=== PATIENT | male | born 1940 | race Caucasian/White ===

== ENCOUNTER 2019-09-08 13:52 | Emergency (ER) | payer MEDICARE ==
[2019-09-08 14:00] VITALS: TEMP 98.1
--- NOTE | 2019-09-08 14:18 | XR ---
EXAMINATION TYPE: XR KUB DATE OF EXAM: 09/08/2019 2:08 PM CLINICAL HISTORY: Abdominal pain and constipation for 4 days. TECHNIQUE: Two Upright KUB images of the abdomen are obtained. COMPARISON: None. FINDINGS: Scattered gas is seen in non-distended stomach and small bowel loops. Gas and fecal materia l is seen in non-distended colon. Few gas prominent bowel loops in the upper abdomen with air-fluid l evels. Left-sided vascular calcification and phleboliths in the pelvis. Moderate narrowing and spurri ng in both hip joints. Multilevel spurring in the thoracolumbar spine. No pneumoperitoneum. Lung base s are clear. IMPRESSION: Overall nonspecific but favor nonobstructive bowel gas pattern.
[2019-09-08 15:16] VITALS: BP 148/72; PULSE 58; RESP 20
--- NOTE | 2019-09-08 15:35 | ED ---
General Adult HPI - General Chief complaint: Abdominal Pain Stated complaint: constipation Time Seen by Provider: 09/08/19 14:00 Source: patient Mode of arrival: ambulatory Limitations: no limitations - History of Present Illness Initial comments: 79-year-old male presents today for chief complaint of constipation. Patient states the past 4 days he has been constipated he states he has been traveling and eating differently and sometimes this occurs. Patient states he felt a stool ball earlier today and attempted to remove it himself. Patient states it was "sucked back up". Patient denies significant abdominal pain states he feels slightly distended, he denies having any rectal fullness at this time. Patient denies any rectal bleeding he admits to history of hemorrhoids. Remaining review of systems negative denies any other complaints denies any vomiting or history of bowel obstruction. - Related Data Home Medications Medication Instructions Recorded Confirmed Metoprolol Tartrate [Lopressor] 12.5 mg PO DAILY 08/15/13 09/28/16 Travatan(Unknown) 1 drops BOTH EYES DAILY 08/15/13 09/28/16 Brimonidine Tartrate/Timolol 1 drop BOTH EYES 09/28/16 [Combigan 0.2%-0.5% Eye Drops] Previous Rx's Medication Instructions Recorded Docusate [Colace] 100 mg PO DAILY 7 Days #7 capsule 09/08/19 Allergies Allergy/AdvReac Type Severity Reaction Status Date / Time Sulfa (Sulfonamide Allergy Rash/Hives Verified 09/08/19 14:00 Antibiotics) Review of Systems ROS Statement: Those systems with pertinent positive or pertinent negative responses have been documented in the HPI. ROS Other: All systems not noted in ROS Statement are negative. Past Medical History Past Medical History: Diabetes Mellitus, Hypertension Additional Past Medical History / Comment(s): GLAUCOMA, BORDERLINE DIABETIC History of Any Multi-Drug Resistant Organisms: None Reported Past Surgical History: Joint Replacement Additional Past Surgical History / Comment(s): NELA KNEES Past Anesthesia/Blood Transfusion Reactions: No Reported Reaction Past Psychological History: No Psychological Hx Reported Smoking Status: Never smoker Past Alcohol Use History: None Reported Past Drug Use History: None Reported General Exam - General Exam Comments Initial Comments: General: The patient is awake and alert, in no distress Eye: Pupils are equal, round and reactive to light, extra-ocular movements are intact. No nystagmus. There is normal conjunctiva bilaterally. No signs of icterus. Gastrointestinal: Soft, non-distended, non-tender abdomen without masses or organomegaly noted. There is no rebound or guarding present Rectal: External pink, nontender hemorrhoids noted. no stool ball appreciated. Musculoskeletal: Normal ROM, no tenderness. Strength 5/5. Sensation intact. Radial pulses equal bilaterally 2+. Neurological: A&O x 3. CN II-XII intact grossly, There are no obvious motor or sensory deficits. Coordination appears grossly intact. Speech is normal. Skin: Skin is warm and dry and no rashes or lesions are noted. Psychiatric: Cooperative, appropriate mood & affect, normal judgment. Limitations: no limitations Course Vital Signs 09/08/19 09/08/19 13:57 15:15 Temperature 98.1 F Pulse Rate 52 L 58 L Respiratory 18 20 Rate Blood Pressure 158/62 148/72 O2 Sat by Pulse 97 99 Oximetry Medical Decision Making - Medical Decision Making Had large bowel movement after enema once x-ray revealed no obstructive process. There is no evidence of stool ball. Patient states he feels much better requesting discharge. Patient was provided a stool softener I discussed high fiber and diarrhea and increasing fluids patient verbalized understanding and was discharged appearing well Disposition Clinical Impression: Constipation Disposition: HOME SELF-CARE Condition: Good Additional Instructions: Please use medication as discussed. Please follow-up with family doctor in the next 2 days. of symptoms have not improved. Please return to emergency room if the symptoms increase or worsen or for any other concerns. Prescriptions: Docusate [Colace] 100 mg PO DAILY 7 Days #7 capsule Is patient prescribed a controlled substance at d/c from ED?: No Referrals: Erick Walsl DO [Primary Care Provider] - 1-2 days Time of Disposition: 15:35
== END 2019-09-08 15:40 | disposition home or self-care (01) ==
LOC: EC 13:52
DX: K59.00 Constipation, unspecified (principal); I10 Essential (primary) hypertension; K64.9 Unspecified hemorrhoids; H40.9 Unspecified glaucoma; Z79.899 Other long term (current) drug therapy; Z88.2 Allergy status to sulfonamides
CPT/HCPCS: 74018; 99284

== ENCOUNTER → 2020-02-21 | Outpatient (CLI) | payer MEDICARE | END | disposition home or self-care (01) | LOC: LABPAT 11:19 | PROVIDERS: ATTEND Surgery | DX: Z20.828 Contact with and (suspected) exposure to other viral communicable diseases (principal) ==

== ENCOUNTER 2020-02-28 07:12 | Day surgery (SDC) | payer MEDICARE ==
[2020-02-26 10:12] VITALS: BMI 25.5
[~2020-02-28 07:12] MED LIST: LACTATED RINGERS 1,000 ML IV SCH; MIDAZOLAM 2 MG/2 ML VIAL IV PRN
[2020-02-28 07:30] VITALS: TEMP 97.6
[2020-02-28 07:47] LABS: Glucose,Whole Blood 125 mg/dL (75-99)
[2020-02-28] MEDS ORDERED: LIDOCAINE 1% (10MG/ML) FOR IV START INTRADERMA ONE (07:52)
[2020-02-28] MEDS ORDERED: METOPROLOL TARTRATE 5 MG/5 ML VIAL IVP ONE (07:52)
[2020-02-28] MEDS ORDERED: PROPOFOL 10 MG/ML 20 ML VIAL IV ONE (08:00)
--- NOTE | 2020-02-28 08:05 | P.GSHP ---
History of Present Illness H&P Date: 02/28/20 79-year-old male presents today for an elective screening colonoscopy. He states his last colonoscopy was about 6 years ago. He denies any recent blood in his stool. Denies any personal history of colon cancer. States he has had some recent constipation. Has no additional complaints at this time. - Review of Systems All systems: negative Past Medical History Past Medical History: Diabetes Mellitus, Hypertension Additional Past Medical History / Comment(s): GLAUCOMA, BORDERLINE DIABETIC. change in bowel pattern History of Any Multi-Drug Resistant Organisms: None Reported Past Surgical History: Joint Replacement Additional Past Surgical History / Comment(s): NELA KNEES Past Anesthesia/Blood Transfusion Reactions: No Reported Reaction Smoking Status: Never smoker Medications and Allergies Home Medications Medication Instructions Recorded Confirmed Type Metoprolol Tartrate [Lopressor] 12.5 mg PO DAILY 08/15/13 02/28/20 History Brimonidine Tartrate [Alphagan P 1 drops BOTH EYES BID 02/26/20 02/28/20 History 0.15% Ophth Soln] Latanoprost/Pf [Latanoprost 0.005% 1 drop BOTH EYES HS 02/26/20 02/28/20 History Eye Drop] Norwood-3 Fatty Acids/Fish Oil [Fish 1 each PO DAILY 02/26/20 02/28/20 History Oil 1,000 mg Softgel] Timolol 0.5% Ophth Soln [Timoptic 1 drop BOTH EYES BID 02/26/20 02/28/20 History 0.5% Ophth Soln] metFORMIN HCL [Glucophage] 500 mg PO TID 02/26/20 02/28/20 History Allergies Allergy/AdvReac Type Severity Reaction Status Date / Time Sulfa (Sulfonamide Allergy Rash/Hives Verified 02/28/20 07:32 Antibiotics) Surgical - Exam Osteopathic Statement: *. No significant issues noted on an osteopathic structural exam other than those noted in the History and Physical/Consult. Vital Signs Temp Pulse Resp BP Pulse Ox 97.6 F 81 18 162/104 98 02/28/20 07:28 02/28/20 07:28 02/28/20 07:28 02/28/20 07:28 02/28/20 07:28 - General well nourished, no distress - Eyes PERRL - ENT no hearing loss - Neck trachea midline - Respiratory normal respiratory effort - Abdomen Abdomen: soft, non tender - Psychiatric oriented to time, oriented to person, oriented to place Results - Labs Abnormal Lab Results - Last 24 Hours (Table) 02/28/20 Range/Units 07:43 POC Glucose (mg/dL) 125 H (75-99) mg/dL Assessment and Plan Plan: 79-year-old male presents for screening colonoscopy. Plan is for colonoscopy. Further recommendations to be provided after procedure.
--- NOTE | 2020-02-28 08:23 | P.PCN ---
Date of Procedure: 02/28/20 Preoperative Diagnosis: Screening Postoperative Diagnosis: Internal hemorrhoids Procedure(s) Performed: Colonoscopy Anesthesia: MAC Surgeon: Brianna Cruz Pathology: none sent Condition: stable Disposition: same day Indications for Procedure: 79-year-old male presents today for screening colonoscopy. He has had some recent constipation. He denies any blood in his stool. No family history of colon cancer. Risks, benefits and alternatives were provided to the patient and he did provide consent prior to attending the endoscopy suite. Operative Findings: Internal hemorrhoids, no other acute finding Description of Procedure: The patient was brought into the endoscopy suite. He was then placed in left lateral decubitus position and adequate sedation was achieved using conscious sedation. A digital rectal exam was performed and mild internal hemorrhoids were palpated. An endoscope was then placed in the rectum and advanced to the cecum as identified by landmarks including the appendiceal orifice and the ileocecal valve. The prep was good. The colonoscope was then slowly withdrawn, examining for any mucosal abnormalities. The cecum, ascending, transverse, descending and sigmoid colon were visualized adequately. There were no large neoplastic lesions throughout the colon. There were no obvious polyps noted throughout the colon. There was no evidence of diverticulosis. Retroflexion was performed in the rectum and mild internal hemorrhoids were visible. Excess air was removed, the colonoscope withdrawn and the procedure terminated. The patient was then transferred to the recovery unit in stable condition. Repeat colonoscopy should be performed based on the patient's symptoms in the future due to the patient's age.
[2020-02-28 08:28] VITALS: RESP 16
[2020-02-28 08:44] VITALS: BP 126/68; PULSE 70
== END 2020-02-28 09:06 | disposition home or self-care (01) ==
LOC: ORWHC2ENDO 07:12
PROVIDERS: ATTEND Surgery
DX: Z12.11 Encounter for screening for malignant neoplasm of colon (principal); K64.8 Other hemorrhoids; I10 Essential (primary) hypertension; E11.39 Type 2 diabetes mellitus with other diabetic ophthalmic complication; H42 Glaucoma in diseases classified elsewhere; Z88.2 Allergy status to sulfonamides; Z79.84 Long term (current) use of oral hypoglycemic drugs; Z79.899 Other long term (current) drug therapy; Z96.653 Presence of artificial knee joint, bilateral
CPT/HCPCS: G0121; J2704; 45378

== ENCOUNTER 2020-07-27 20:05 | Emergency (ER) | payer MEDICARE ==
[2020-07-27 20:12] VITALS: TEMP 97.5
[2020-07-27] MEDS ORDERED: SODIUM CHLORIDE 0.9% 500 ML 500 ML IV STA (20:46)
[2020-07-27 21:12] VITALS: RESP 18
--- NOTE | 2020-07-27 21:27 | ED ---
Recheck HPI - General Chief Complaint: Recheck/Abnormal Lab/Rx Stated Complaint: elevated BP, Dizziness Time Seen by Provider: 07/27/20 20:36 Source: patient Mode of arrival: wheelchair Limitations: no limitations - History of Present Illness Initial Comments: 80 year-old male patient presents to the emergency department for evaluation of elevated blood pressure. States that he was out watching his grandson play ball when he started to feel "woozy". Checked his bloodsugar when he got home it was 117. Checked his blood pressure which was elevated to the 190s systolic. States his BP is generally well under control. He take half tablet of Metoprolol 12.5mg daily. He states he feels general malaise and occasional lightheadedness. Denies any chest pain or shortness of breath. Denies headache, blurred, or double vision. Denies any numbness, tingling, or weakness to the extremities. Patient denies any recent rash, fever, chills, cough, abdominal pain, nausea, vomiting, diarrhea, constipation, back pain, hematuria, dysuria, urinary urgency, urinary frequency, or any other complaints. - Related Data Home Medications Medication Instructions Recorded Confirmed Metoprolol Tartrate [Lopressor] 12.5 mg PO DAILY 08/15/13 02/28/20 Brimonidine Tartrate [Alphagan P 1 drops BOTH EYES BID 02/26/20 02/28/20 0.15% Ophth Soln] Latanoprost/Pf [Latanoprost 0.005% 1 drop BOTH EYES HS 02/26/20 02/28/20 Eye Drop] Arley-3 Fatty Acids/Fish Oil [Fish 1 each PO DAILY 02/26/20 02/28/20 Oil 1,000 mg Softgel] Timolol 0.5% Ophth Soln [Timoptic 1 drop BOTH EYES BID 02/26/20 02/28/20 0.5% Ophth Soln] metFORMIN HCL [Glucophage] 500 mg PO TID 02/26/20 02/28/20 Allergies Allergy/AdvReac Type Severity Reaction Status Date / Time Sulfa (Sulfonamide Allergy Rash/Hives Verified 07/27/20 20:08 Antibiotics) Review of Systems ROS Statement: Those systems with pertinent positive or pertinent negative responses have been documented in the HPI. ROS Other: All systems not noted in ROS Statement are negative. Past Medical History Past Medical History: Diabetes Mellitus, Hypertension Additional Past Medical History / Comment(s): GLAUCOMA, BORDERLINE DIABETIC. change in bowel pattern History of Any Multi-Drug Resistant Organisms: None Reported Past Surgical History: Joint Replacement Additional Past Surgical History / Comment(s): NELA KNEES Past Anesthesia/Blood Transfusion Reactions: No Reported Reaction Past Psychological History: No Psychological Hx Reported Smoking Status: Never smoker Past Alcohol Use History: Rare Past Drug Use History: None Reported General Exam Limitations: no limitations General appearance: alert, in no apparent distress, other (This is a well- developed, well-nourished elderly male patient in no acute distress. Vital signs upon presentation are temperature 97.5F, pulse 108, respirations 20, blood pressure 202/115, pulse ox 97% on room air.) Eye exam: Present: normal appearance, PERRL, EOMI. Absent: scleral icterus, conjunctival injection, nystagmus, periorbital swelling ENT exam: Present: normal exam, normal oropharynx, mucous membranes moist Respiratory exam: Present: normal lung sounds bilaterally. Absent: respiratory distress, wheezes, rales, rhonchi, stridor Cardiovascular Exam: Present: normal rhythm, tachycardia, normal heart sounds. Absent: systolic murmur, diastolic murmur, rubs, gallop, clicks GI/Abdominal exam: Present: soft, normal bowel sounds. Absent: distended, tenderness, guarding, rebound, rigid Neurological exam: Present: alert, oriented X3, CN II-XII intact Expanded Speech: Present: fluid speech Cranial nerves: EOM's Intact: Normal, Nystagmus: Normal Motor strength exam: RUE: 5, LUE: 5, RLE: 5, LLE: 5 Psychiatric exam: Present: normal affect, normal mood Skin exam: Present: warm, dry, intact, normal color. Absent: rash Course Vital Signs 07/27/20 07/27/20 07/27/20 20:09 21:10 22:17 Temperature 97.5 F L Pulse Rate 108 H 90 93 Respiratory 20 18 18 Rate Blood Pressure 202/115 176/103 167/104 O2 Sat by Pulse 97 99 97 Oximetry 07/27/20 23:40 Temperature Pulse Rate 82 Respiratory 18 Rate Blood Pressure 162/94 O2 Sat by Pulse 97 Oximetry Medical Decision Making - Medical Decision Making 80-year-old male patient presented to the emergency department today for evaluation of elevated blood pressure and dizziness. Physical examination is unremarkable. He is neurologically intact with no focal deficits. Lungs are clear to auscultation with good air movement. Blood pressures initially were elevated at 200 systolic. Labs reviewed and are unremarkable. 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 Patient denies chest pain. Trop negative. Given home BP medication, a whole tablet of metoprolol 12.5mg. BP did improve. He does feel comfortable being discharged. He is to call primary care physician in the morning for further evaluation and instruction. Return parameters were discussed in detail. He verbalizes understanding and agrees with this plan. Case discussed with my attending Dr. Luther. - Lab Data Result diagrams: 07/27/20 21:06 07/27/20 21:06 Lab Results 07/27/20 07/27/20 07/27/20 Range/Units 21:06 21:06 21:06 WBC 7.5 (3.8-10.6) k/uL RBC 4.70 (4.30-5.90) m/uL Hgb 15.2 (13.0-17.5) gm/dL Hct 43.0 (39.0-53.0) % MCV 91.5 (80.0-100.0) fL MCH 32.4 (25.0-35.0) pg MCHC 35.5 (31.0-37.0) g/dL RDW 12.3 (11.5-15.5) % Plt Count 217 (150-450) k/uL MPV 7.0 Neutrophils % 58 % Lymphocytes % 28 % Monocytes % 7 % Eosinophils % 4 % Basophils % 1 % Neutrophils # 4.3 (1.3-7.7) k/uL Lymphocytes # 2.1 (1.0-4.8) k/uL Monocytes # 0.5 (0-1.0) k/uL Eosinophils # 0.3 (0-0.7) k/uL Basophils # 0.1 (0-0.2) k/uL PT 11.0 (9.0-12.0) sec INR 1.0 (<1.2) APTT 25.2 (22.0-30.0) sec Sodium 138 (137-145) mmol/L Potassium 4.0 (3.5-5.1) mmol/L Chloride 103 (98-107) mmol/L Carbon Dioxide 24 (22-30) mmol/L Anion Gap 11 mmol/L BUN 17 (9-20) mg/dL Creatinine 0.91 (0.66-1.25) mg/dL Est GFR (CKD-EPI)AfAm >90 (>60 ml/min/1.73 sqM) Est GFR (CKD-EPI)NonAf 81 (>60 ml/min/1.73 sqM) Glucose 134 H (74-99) mg/dL Calcium 10.2 (8.4-10.2) mg/dL Total Bilirubin 0.6 (0.2-1.3) mg/dL AST 32 (17-59) U/L ALT 27 (4-49) U/L Alkaline Phosphatase 67 (38-126) U/L Troponin I (0.000-0.034) ng/mL Total Protein 7.4 (6.3-8.2) g/dL Albumin 4.6 (3.5-5.0) g/dL TSH 4.090 (0.465-4.680) mIU/L 07/27/20 Range/Units 21:06 WBC (3.8-10.6) k/uL RBC (4.30-5.90) m/uL Hgb (13.0-17.5) gm/dL Hct (39.0-53.0) % MCV (80.0-100.0) fL MCH (25.0-35.0) pg MCHC (31.0-37.0) g/dL RDW (11.5-15.5) % Plt Count (150-450) k/uL MPV Neutrophils % % Lymphocytes % % Monocytes % % Eosinophils % % Basophils % % Neutrophils # (1.3-7.7) k/uL Lymphocytes # (1.0-4.8) k/uL Monocytes # (0-1.0) k/uL Eosinophils # (0-0.7) k/uL Basophils # (0-0.2) k/uL PT (9.0-12.0) sec INR (<1.2) APTT (22.0-30.0) sec Sodium (137-145) mmol/L Potassium (3.5-5.1) mmol/L Chloride (98-107) mmol/L Carbon Dioxide (22-30) mmol/L Anion Gap mmol/L BUN (9-20) mg/dL Creatinine (0.66-1.25) mg/dL Est GFR (CKD-EPI)AfAm (>60 ml/min/1.73 sqM) Est GFR (CKD-EPI)NonAf (>60 ml/min/1.73 sqM) Glucose (74-99) mg/dL Calcium (8.4-10.2) mg/dL Total Bilirubin (0.2-1.3) mg/dL AST (17-59) U/L ALT (4-49) U/L Alkaline Phosphatase (38-126) U/L Troponin I <0.012 (0.000-0.034) ng/mL Total Protein (6.3-8.2) g/dL Albumin (3.5-5.0) g/dL TSH (0.465-4.680) mIU/L - EKG Data -: EKG Interpreted by Me EKG Comments: EKG obtained at 2013 shows sinus rhythm with first-degree AV block with possible premature atrial complexes. Right bundle branch block. Ventricular rate is 96, NV interval 218, QRS duration 154, QT 404, QTC 510. Disposition Clinical Impression: Hypertension, Dizziness Disposition: HOME SELF-CARE Condition: Good Instructions (If sedation given, give patient instructions): Hypertension (ED), Dizziness (ED) Additional Instructions: Follow-up with your primary care physician for recheck in the morning. Monitor blood pressures, keep a log for your doctor. Return for any new, worsening, or concerning symptoms. Is patient prescribed a controlled substance at d/c from ED?: No Referrals: Erick Walls DO [Primary Care Provider] - 1-2 days Time of Disposition: 23:25
[2020-07-27 21:44] LABS: Basophils # (A) 0.1 k/uL (0-0.2); Basophils % (A) 1 %; Eosinophils # (A) 0.3 k/uL (0-0.7); Eosinophils % (A) 4 %; HGB 15.2 gm/dL (13.0-17.5); Lymphocytes # (A) 2.1 k/uL (1.0-4.8); Lymphocytes % (A) 28 %; MCH 32.4 pg (25.0-35.0); MCHC 35.5 g/dL (31.0-37.0); MCV 91.5 fL (80.0-100.0); Monocytes # (A) 0.5 k/uL (0-1.0); Monocytes % (A) 7 %; Neutrophils # (A) 4.3 k/uL (1.3-7.7); Neutrophils % (A) 58 %; Platelet Count 217 k/uL (150-450); RDW 12.3 % (11.5-15.5); WBC 7.5 k/uL (3.8-10.6)
[2020-07-27 21:53] LABS: ALT 27 U/L (4-49); AST 32 U/L (17-59); African American GFR (CKD) >90 (>60 ml/min/1.73 sqM); Albumin 4.6 g/dL (3.5-5.0); Alkaline Phosphatase 67 U/L (38-126); Anion Gap 11 mmol/L; Blood Urea Nitrogen 17 mg/dL (9-20); Calcium 10.2 mg/dL (8.4-10.2); Carbon Dioxide 24 mmol/L (22-30); Chloride 103 mmol/L (98-107); Glucose 134 mg/dL (74-99); Non-African American GFR(CKD) 81 (>60 ml/min/1.73 sqM); Sodium 138 mmol/L (137-145); Total Bilirubin 0.6 mg/dL (0.2-1.3); Total Protein 7.4 g/dL (6.3-8.2)
[2020-07-27 22:01] LABS: Partial Thromboplastin Time 25.2 sec (22.0-30.0)
[2020-07-27] MEDS ORDERED: METOPROLOL TARTRATE 12.5 MG TAB PO STA (22:21)
[2020-07-27 23:41] VITALS: BP 162/94; PULSE 82
[2020-07-30 01:38] LABS: Hemoglobin A1C 7.9 % (4.0-6.0)
== END 2020-07-27 23:40 | disposition home or self-care (01) ==
LOC: EC 20:05
DX: I10 Essential (primary) hypertension (principal); Z79.84 Long term (current) use of oral hypoglycemic drugs; E11.39 Type 2 diabetes mellitus with other diabetic ophthalmic complication; H40.009 Preglaucoma, unspecified, unspecified eye
CPT/HCPCS: 80053; 84443; 84484; 85025; 85610; 85730; 93005; 99284

== ENCOUNTER 2023-07-04 07:29 | Day surgery (SDC) | payer MEDICARE ==
[2023-06-30 10:10] VITALS: BMI 26.5
[~2023-07-04 07:29] MED LIST changes: -LACTATED RINGERS 1,000 ML IV SCH; +LIDOCAINE 1% (10MG/ML) FOR IV START INTRADERMA PRN; -MIDAZOLAM 2 MG/2 ML VIAL IV PRN
[2023-07-04] MEDS: LACTATED RINGERS 1,000 ML IV SCH (08:03)
[2023-07-04 08:26] LABS: Glucose,Whole Blood 170 mg/dL (70-110)
[2023-07-04 08:42] VITALS: TEMP 97.1
[2023-07-04] MEDS ORDERED: LIDOCAINE 1% INJ 10MG/ML (20 ML MDV) ONE (08:47)
[2023-07-04] MEDS ORDERED: PROPOFOL 10 MG/ML 20 ML VIAL IV ONE (08:47)
--- NOTE | 2023-07-04 09:17 | P.GSHP ---
History of Present Illness H&P Date: 07/04/23 Chief Complaint: Change in bowel habits 83-year-old male here today for colonoscopy. Patient with increasing constipation. Takes MiraLAX daily. No rectal bleeding. Stool may be slightly narrower. Thinks he may have had polyps in the past. Past Medical History Past Medical History: Diabetes Mellitus, Hypertension Additional Past Medical History / Comment(s): GLAUCOMA, BORDERLINE DIABETIC. change in bowel pattern History of Any Multi-Drug Resistant Organisms: None Reported Past Surgical History: Joint Replacement Additional Past Surgical History / Comment(s): NELA KNEES, lens implants april 2023, colonoscopy, egd, cataracts removed Past Anesthesia/Blood Transfusion Reactions: No Reported Reaction Additional Past Anesthesia/Blood Transfusion Reaction / Comment(s): no blood transfusion Smoking Status: Never smoker - Past Family History Mother Family Medical History: Cancer Additional Family Medical History / Comment(s): lung Medications and Allergies Home Medications Medication Instructions Recorded Confirmed Type Metoprolol Tartrate [Lopressor] 12.5 mg PO DAILY 08/15/13 07/04/23 History Brimonidine Tartrate [Alphagan P 1 drops RIGHT EYE BID 02/26/20 07/04/23 History 0.15% Ophth Soln] Timolol 0.5% Ophth Soln [Timoptic 1 drop BOTH EYES BID 02/26/20 07/04/23 History 0.5% Ophth Soln] metFORMIN HCL [Glucophage] 500 mg PO TID 02/26/20 07/04/23 History Brinzolamide [Brinzolamide 1% 1 drop LEFT EYE DAILY 06/30/23 07/04/23 History Ophth Susp] Losartan [Cozaar] 50 mg PO DAILY 06/30/23 07/04/23 History Allergies Allergy/AdvReac Type Severity Reaction Status Date / Time Sulfa (Sulfonamide Allergy Rash/Hives Verified 07/04/23 07:51 Antibiotics) Surgical - Exam Vital Signs Temp Pulse Resp Pulse Ox 97.1 F L 77 18 99 07/04/23 08:06 07/04/23 08:06 07/04/23 08:06 07/04/23 08:06 Physical exam: General: Well-developed, well-nourished HEENT: Normocephalic, sclerae nonicteric Abdomen: Nontender, nondistended Extremities: No edema Neuro: Alert and oriented Results - Labs Abnormal Lab Results - Last 24 Hours (Table) 07/04/23 Range/Units 08:20 POC Glucose (mg/dL) 170 H (70-110) mg/dL Assessment and Plan (1) Change in bowel habits Narrative/Plan: Will proceed with colonoscopy at this time. Current Visit: Yes Status: Acute Code(s): R19.4 - CHANGE IN BOWEL HABIT SNOMED Code(s): 44679219
--- NOTE | 2023-07-04 09:18 | P.PCN ---
Date of Procedure: 07/04/23 Procedure(s) Performed: PREOPERATIVE DIAGNOSIS: Change in bowel habits POSTOPERATIVE DIAGNOSIS: Descending colon polyp PROCEDURE: Colonoscopy with snare polypectomy ANESTHESIA: MAC SURGEON: Elliot Bah M.D. SPECIMENS: Polyp ENDOSCOPIC PROCEDURE: The patient was placed on the endoscopy table in the left decubitus position. The Olympus colonoscope was inserted into the anus and passed under direct visualization to the base of the cecum. The appendiceal orifice was visualized. From that point the scope was slowly withdrawn inspecting all surfaces carefully. There were no neoplastic inflammatory or polypoid lesions throughout the cecum, ascending, and transverse colon. In the descending colon a small polyp was seen and removed using the snare with cautery technique. The remainder of the descending sigmoid and rectum appeared normal. There was no visible diverticulosis. Digital rectal examination was normal. The patient was taken to the recovery room in stable condition per anesthesia guidelines. RECOMMENDATIONS: Await biopsy results. Consider repeat colonoscopy 5 years if in great health.
[2023-07-04 09:28] VITALS: PULSE 75
[2023-07-04 10:10] VITALS: BP 125/75; RESP 18
== END 2023-07-04 10:05 | disposition home or self-care (01) ==
LOC: ORWHC2ENDO 07:29
PROVIDERS: ATTEND Surgery
DX: D12.4 Benign neoplasm of descending colon (principal); I10 Essential (primary) hypertension; E11.9 Type 2 diabetes mellitus without complications; F17.200 Nicotine dependence, unspecified, uncomplicated; Z88.2 Allergy status to sulfonamides; Z79.84 Long term (current) use of oral hypoglycemic drugs; Z79.899 Other long term (current) drug therapy; Z98.890 Other specified postprocedural states
CPT/HCPCS: 88305; 45385; J2001; J2704

== ENCOUNTER → 2023-08-18 | Outpatient (CLI) | payer MEDICARE ==
--- NOTE | 2023-08-18 12:52 | XR ---
EXAMINATION TYPE: XR cervical spine limited DATE OF EXAM: 08/18/2023 COMPARISON: NONE HISTORY: Pain TECHNIQUE: Four views are submitted. FINDINGS: The odontoid is intact. There are no compression deformities. The prevertebral soft tissue structur es are within normal limits. Grade 1 anterolisthesis C4-C5, C5-6 and C6-7. Multilevel advanced facet arthropathy. Mild multilevel degenerative disc disease with moderate changes C5-C6. Straightening of cervical spine. IMPRESSION: 1. Advanced multilevel facet arthropathy with mild to moderate multilevel degenerative disc disease. 2. Grade 1 anterolisthesis C4-5, C5-6 and C6-C7.
== END | disposition home or self-care (01) ==
LOC: RADXRMAIN 12:28
PROVIDERS: ATTEND Family Medicine
DX: M50.30 Other cervical disc degeneration, unspecified cervical region (principal); M43.12 Spondylolisthesis, cervical region
CPT/HCPCS: 72040

== ENCOUNTER 2024-05-29 19:18 | Inpatient (IN) | payer MEDICARE ==
--- NOTE | 2024-05-29 21:44 | XR ---
EXAMINATION TYPE: XR chest 2V DATE OF EXAM: 05/29/2024 9:38 PM COMPARISON: Chest radiographs from 09/24/2010 TECHNIQUE: XR chest 2V Frontal and lateral views of the chest. CLINICAL INDICATION:Male, 83 years old with history of Weakness; FINDINGS: Lungs/Pleura: There is no evidence of pleural effusion, focal consolidation, or pneumothorax. Pulmonary vascularity: Unremarkable. Heart/mediastinum: Cardiomediastinal silhouette is unremarkable. Musculoskeletal: Multiple level degenerative disc disease changes seen throughout the spine. Bilatera l arthropathy with left shoulder joint calcified loose bodies. Right AC joint arthropathy. IMPRESSION: No acute cardiopulmonary disease/process. [facility], , 05/29/2024 9:42 PM
[2024-05-29] MEDS: LACTATED RINGERS 1,000 ML IV ONE (21:55)
[2024-05-29 22:16] LABS: AST 105 U/L (17-59); African American GFR (CKD) 29 (>60 ml/min/1.73 sqM); Albumin 3.5 g/dL (3.5-5.0); Alkaline Phosphatase 160 U/L (38-126); Anion Gap 15 mmol/L; Blood Urea Nitrogen 52 mg/dL (9-20); Calcium 8.9 mg/dL (8.4-10.2); Carbon Dioxide 18 mmol/L (22-30); Chloride 102 mmol/L (98-107); Glucose 186 mg/dL (74-99); Magnesium 1.8 mg/dL (1.6-2.3); Non-African American GFR(CKD) 25 (>60 ml/min/1.73 sqM); Potassium 3.4 mmol/L (3.5-5.1); Sodium 135 mmol/L (137-145); Total Bilirubin 0.6 mg/dL (0.2-1.3); Total Protein 5.9 g/dL (6.3-8.2)
[2024-05-29 22:24] LABS: ALT 49 U/L (4-49)
[2024-05-29 22:26] LABS: INR 1.4 (<1.2); Partial Thromboplastin Time 26.8 sec (22.0-30.0)
[2024-05-29 22:30] LABS: HCT 41.3 % (39.0-53.0); HGB 12.8 gm/dL (13.0-17.5); MCHC 30.9 g/dL (31.0-37.0); MCV 93.8 fL (80.0-100.0); Platelet Count 135 k/uL (150-450); RDW 13.5 % (11.5-15.5); WBC 8.3 k/uL (3.8-10.6)
[2024-05-29 22:55] LABS: Influenza A Not Detected (Not Detectd); Influenza B Not Detected (Not Detectd); RSV Not Detected (Not Detectd)
[2024-05-29 22:56] LABS: Band Neutrophils % 44 %; Lymphocytes # (M) 0.33 k/uL (1.0-4.8); Metamyelocytes # (M) 0.58 k/uL (0); Metamyelocytes % 7 %; Neutrophils % (M) 45 %; Nucleated Red Blood Cells 0 /100 WBC (0-0); Total Cells Counted 200
[2024-05-29 22:57] LABS: Toxic Granulation Present; Toxic Vacuolation Present
[2024-05-30] MEDS: SODIUM CHLORIDE 0.9% 500 ML 500 ML IV ONE (00:29)
--- NOTE | 2024-05-30 01:21 | ED ---
General Adult HPI - General Chief complaint: Fall Stated complaint: Weakness Time Seen by Provider: 05/29/24 19:21 Source: EMS Mode of arrival: EMS - History of Present Illness Initial comments: 83-year-old male with past medical history of diabetes, hypertension who pr esents to the emergency department via EMS. Family called EMS stating that the patient has had generalized weakness and flulike symptoms since yesterday afternoon. He has had nausea with vomiting. Also admits to some diarrhea. Denies black or bloody stools. Patient had significant weakness to the point where he cannot ambulate. He was trying to get out of bed and rolled off partially onto the floor. Patient's head was still up on the bed however his legs were stretched out and underneath the bed next to his. He denies hitting his head. No loss of consciousness. States that he was too weak to get himself back on the bed. He does not take any blood thinners. He denies any chest pain or shortness of breath. Does admit to generalized aches. No shortness of breath or cough. Denies history of heart disease. No sick contacts with similar symptoms. Denies any abdominal pain. Denies urinary complaints. No other alleviating, precipitating or modifying factors - Related Data Home Medications Medication Instructions Recorded Confirmed Metoprolol Tartrate [Lopressor] 25 mg PO DAILY 08/15/13 05/30/24 metFORMIN HCL [Glucophage] 500 mg PO TID 02/26/20 05/30/24 Brimonidine Tartrate/Timolol 1 drop RIGHT EYE BID 05/30/24 05/30/24 [Brimonidine-Timolol 0.2%-0.5%] Losartan [Cozaar] 25 mg PO DAILY 05/30/24 05/30/24 Allergies Allergy/AdvReac Type Severity Reaction Status Date / Time Sulfa (Sulfonamide Allergy Rash/Hives Verified 05/30/24 09:27 Antibiotics) Review of Systems ROS Statement: Those systems with pertinent positive or pertinent negative responses have been documented in the HPI. ROS Other: All systems not noted in ROS Statement are negative. Past Medical History Past Medical History: Diabetes Mellitus, Hypertension Additional Past Medical History / Comment(s): GLAUCOMA, BORDERLINE DIABETIC. change in bowel pattern History of Any Multi-Drug Resistant Organisms: None Reported Past Surgical History: Joint Replacement Additional Past Surgical History / Comment(s): NELA KNEES Past Anesthesia/Blood Transfusion Reactions: No Reported Reaction Past Psychological History: No Psychological Hx Reported Smoking Status: Never smoker - Past Family History Mother Family Medical History: No Reported History General Exam General appearance: alert, in no apparent distress Head exam: Present: atraumatic, normocephalic, normal inspection Eye exam: Present: normal appearance, PERRL, EOMI. Absent: scleral icterus, conjunctival injection, periorbital swelling ENT exam: Present: normal exam, mucous membranes dry Neck exam: Present: normal inspection. Absent: tenderness, meningismus, lymphad enopathy Respiratory exam: Present: normal lung sounds bilaterally. Absent: respiratory distress, wheezes, rales, rhonchi, stridor Cardiovascular Exam: Present: normal rhythm, tachycardia, normal heart sounds. Absent: systolic murmur, diastolic murmur, rubs, gallop, clicks GI/Abdominal exam: Present: soft, normal bowel sounds. Absent: distended, tenderness, guarding, rebound, rigid Extremities exam: Present: normal inspection, full ROM, normal capillary refill. Absent: tenderness, pedal edema, joint swelling, calf tenderness Back exam: Present: normal inspection Neurological exam: Present: alert, oriented X3, CN II-XII intact Psychiatric exam: Present: normal affect, normal mood Skin exam: Present: warm, dry, intact, normal color. Absent: rash Course Vital Signs 05/29/24 05/30/24 05/30/24 19:36 01:00 05:00 Temperature 98.3 F Pulse Rate 100 110 H 89 Pulse Rate [ Pulse Oximetery ] Respiratory 20 22 22 Rate Blood Pressure 108/65 95/59 95/51 Blood Pressure [Left Arm] O2 Sat by Pulse 96 97 95 Oximetry 05/30/24 05/30/24 05/30/24 08:48 13:15 14:52 Temperature 98.4 F Pulse Rate 90 86 Pulse Rate [ Pulse Oximetery ] Respiratory 18 16 Rate Blood Pressure 100/56 103/68 104/78 Blood Pressure [Left Arm] O2 Sat by Pulse 99 95 Oximetry 05/30/24 05/30/24 05/30/24 15:00 16:00 16:55 Temperature 104.0 F H Pulse Rate Pulse Rate [ Pulse Oximetery ] Respiratory Rate Blood Pressure 106/79 103/83 Blood Pressure [Left Arm] O2 Sat by Pulse 97 98 Oximetry 05/30/24 05/30/24 05/30/24 17:00 18:00 18:59 Temperature 102.9 F H Pulse Rate Pulse Rate [ Pulse Oximetery ] Respiratory Rate Blood Pressure 106/63 128/59 Blood Pressure [Left Arm] O2 Sat by Pulse Oximetry 05/30/24 05/30/24 05/30/24 19:00 19:51 20:13 Temperature 101.3 F H Pulse Rate 108 H 101 H 99 Pulse Rate [ Pulse Oximetery ] Respiratory 26 H 26 H 26 H Rate Blood Pressure 115/56 91/53 84/60 Blood Pressure [Left Arm] O2 Sat by Pulse 97 97 96 Oximetry 05/30/24 05/30/24 05/30/24 20:55 22:00 22:33 Temperature 100.3 F H 98.3 F 98.0 F Pulse Rate 96 93 96 Pulse Rate [ Pulse Oximetery ] Respiratory 28 H 28 H 27 H Rate Blood Pressure 86/51 90/55 88/53 Blood Pressure [Left Arm] O2 Sat by Pulse 98 98 97 Oximetry 05/30/24 05/31/24 23:30 00:00 Temperature 98.1 F Pulse Rate 98 Pulse Rate [ 83 Pulse Oximetery ] Respiratory 26 H 17 Rate Blood Pressure 100/57 Blood Pressure 93/56 [Left Arm] O2 Sat by Pulse 97 96 Oximetry Medical Decision Making - Medical Decision Making Was pt. sent in by a medical professional or institution (, PA, INFORMATION SERVICES CONSULTANT, urgent care, hospital, or shelter...) When possible be specific @ -No Did you speak to anyone other than the patient for history (EMS, parent, family, police, friend...)? What history was obtained from this source @ -Spoke with for history Did you review nursing and triage notes (agree or disagree)? Why? @ -I reviewed and agree with nursing and triage notes Were old charts reviewed (outside hosp., previous admission, EMS record, old EKG, old radiological studies, urgent care reports/EKG's, shelter records)? Report findings @ -No old charts were reviewed Differential Diagnosis (chest pain, altered mental status, abdominal pain women, abdominal pain men, vaginal bleeding, weakness, fever, dyspnea, syncope, h eadache, dizziness, GI bleed, back pain, seizure, CVA, palpatations, mental health, musculoskeletal)? @ -Differential Weakness: Hypoglycemia, shock, sepsis, hyponatremia, anemia, infection, TX, ETOH, adverse medicine reaction, overdose, stroke, this is not meant to be an all-inclusive list. EKG interpreted by me (3pts min.). @ -Yes and demonstrates sinus tachycardia with a rate of 103. CT interval 245. QRS 142. QTc of 394. Right bundle branch block. Left anterior fascicular block. No acute ST segment elevation X-rays interpreted by me (1pt min.). @ -Yes and demonstrates no acute process CT interpreted by me (1pt min.). @ -Yes and demonstrates no acute process U/S interpreted by me (1pt. min.). @ -None done What testing was considered but not performed or refused? (CT, X-rays, U/S, labs)? Why? @ -None What meds were considered but not given or refused? Why? @ -None Did you discuss the management of the patient with other professionals (professionals i.e. , PA, INFORMATION SERVICES CONSULTANT, lab, RT, psych nurse, social science professor, communication and outreach manager, teacher, sba business development officer, test case developer)? Give summary @ -Spoke with Dr. Walls who admitted the patient Was smoking cessation discussed for >3mins.? @ -No Was critical care preformed (if so, how long)? @ -Yes, 35 minutes for heparinization of the patient Were there social determinants of health that impacted care today? How? (Homelessness, low income, unemployed, alcoholism, drug addiction, transportation, low edu. Level, literacy, decrease access to med. care, snf, rehab)? @ -No Was there de-escalation of care discussed even if they declined (Discuss DNR or withdrawal of care, Hospice)? DNR status @ -Yes and patient would like to remain a full code What co-morbidities impacted this encounter? (DM, HTN, Smoking, COPD, CAD, Cancer, CVA, ARF, Chemo, Hep., AIDS, mental health diagnosis, sleep apnea, morbid obesity)? @ -None Was patient admitted / discharged? Hospital course, mention meds given and route, prescriptions, significant lab abnormalities, going to OR and other pertinent info. @ -Upon arrival patient seen and evaluated in hallway 11. Thorough history and physical exam was performed. Patient has vague symptoms of weakness. IV was established and he was given a liter bolus of lactated Ringer's. Laboratory studies are conducted. They do return demonstrate a very high lactic acid level. At this time no source of infection is identified as chest x-ray is negative and viral swabs are negative. Patient does have an RANDALL with an elevated troponin. I did place the patient on 75 cc of normal saline per hour as I am concerned for impending volume overload due to possible acute coronary syndrome. Patient did not hit his head however out of an abundance of precaution I did CT the patient's brain which was negative. Patient is started on heparin afterwards due to his elevated troponin level. Due to the RANDALL a urinalysis is ordered however patient does not provide a urine sample during my care of the patient. I did have the nurse BladderScan him to rule out retention. I recommended admission due to weakness, NSTEMI and RANDALL. I spoke with Dr. Walls who agreed to admit the patient. I will place cardiology and nephrology on consult Undiagnosed new problem with uncertain prognosis? @ -Yes Drug Therapy requiring intensive monitoring for toxicity (Heparin, Nitro, Insulin, Cardizem)? @ -Heparin Were any procedures done? @ -No Diagnosis/symptom? @ -Generalized weakness, NSTEMI, RANDALL Acute, or Chronic, or Acute on Chronic? @ -Acute Uncomplicated (without systemic symptoms) or Complicated (systemic symptoms)? @ -Complicated Side effects of treatment? @ -No Exacerbation, Progression, or Severe Exacerbation? @ -No Poses a threat to life or bodily function? How? (Chest pain, USA, TX, pneumonia, PE, COPD, DKA, ARF, appy, cholecystitis, CVA, Diverticulitis, Homicidal, Suicidal, threat to staff... and all critical care pts) @ -Yes as patient has significantly elevated troponin - Lab Data Result diagrams: 06/03/24 05:44 06/03/24 05:44 Lab Results 05/29/24 05/29/24 05/29/24 Range/Units 21:52 21:52 21:52 WBC 8.3 (3.8-10.6) k/uL RBC 4.40 (4.30-5.90) m/uL Hgb 12.8 L (13.0-17.5) gm/dL Hct 41.3 (39.0-53.0) % MCV 93.8 (80.0-100.0) fL MCH 29.0 (25.0-35.0) pg MCHC 30.9 L (31.0-37.0) g/dL RDW 13.5 (11.5-15.5) % Plt Count 135 L (150-450) k/uL MPV 8.0 Neutrophils % (Manual) 45 % Band Neuts % (Manual) 44 % Lymphocytes % (Manual) 4 % Metamyelocytes % 7 % Neutrophils # (Manual) 7.30 (1.3-7.7) k/uL Lymphocytes # (Manual) 0.33 L (1.0-4.8) k/uL Metamyelocytes # (Man) 0.58 H (0) k/uL Nucleated RBCs 0 (0-0) /100 WBC Manual Slide Review Performed Toxic Granulation Present Toxic Vacuolation Present PT 15.0 H (10.0-12.5) sec INR 1.4 H (<1.2) APTT 26.8 (22.0-30.0) sec Sodium 135 L (137-145) mmol/L Potassium 3.4 L (3.5-5.1) mmol/L Chloride 102 (98-107) mmol/L Carbon Dioxide 18 L (22-30) mmol/L Anion Gap 15 mmol/L BUN 52 H (9-20) mg/dL Creatinine 2.37 H (0.66-1.25) mg/dL Est GFR (CKD-EPI)AfAm 29 (>60 ml/min/1.73 sqM) Est GFR (CKD-EPI)NonAf 25 (>60 ml/min/1.73 sqM) Glucose 186 H (74-99) mg/dL Lactic Ac Sepsis Rflx Plasma Lactic Acid Emmanuel (0.7-2.0) mmol/L Calcium 8.9 (8.4-10.2) mg/dL Magnesium 1.8 (1.6-2.3) mg/dL Total Bilirubin 0.6 (0.2-1.3) mg/dL AST 105 H (17-59) U/L ALT 49 (4-49) U/L Alkaline Phosphatase 160 H (38-126) U/L Troponin I (0.000-0.034) ng/mL Total Protein 5.9 L (6.3-8.2) g/dL Albumin 3.5 (3.5-5.0) g/dL Influenza Type A (PCR) (Not Detectd) Influenza Type B (PCR) (Not Detectd) RSV (PCR) (Not Detectd) SARS-CoV-2 (PCR) (Not Detectd) 05/29/24 05/29/24 05/29/24 Range/Units 21:52 21:52 21:54 WBC (3.8-10.6) k/uL RBC (4.30-5.90) m/uL Hgb (13.0-17.5) gm/dL Hct (39.0-53.0) % MCV (80.0-100.0) fL MCH (25.0-35.0) pg MCHC (31.0-37.0) g/dL RDW (11.5-15.5) % Plt Count (150-450) k/uL MPV Neutrophils % (Manual) % Band Neuts % (Manual) % Lymphocytes % (Manual) % Metamyelocytes % % Neutrophils # (Manual) (1.3-7.7) k/uL Lymphocytes # (Manual) (1.0-4.8) k/uL Metamyelocytes # (Man) (0) k/uL Nucleated RBCs (0-0) /100 WBC Manual Slide Review Toxic Granulation Toxic Vacuolation PT (10.0-12.5) sec INR (<1.2) APTT (22.0-30.0) sec Sodium (137-145) mmol/L Potassium (3.5-5.1) mmol/L Chloride (98-107) mmol/L Carbon Dioxide (22-30) mmol/L Anion Gap mmol/L BUN (9-20) mg/dL Creatinine (0.66-1.25) mg/dL Est GFR (CKD-EPI)AfAm (>60 ml/min/1.73 sqM) Est GFR (CKD-EPI)NonAf (>60 ml/min/1.73 sqM) Glucose (74-99) mg/dL Lactic Ac Sepsis Rflx Plasma Lactic Acid Emmanuel 6.8 H* (0.7-2.0) mmol/L Calcium (8.4-10.2) mg/dL Magnesium (1.6-2.3) mg/dL Total Bilirubin (0.2-1.3) mg/dL AST (17-59) U/L ALT (4-49) U/L Alkaline Phosphatase (38-126) U/L Troponin I 0.879 H* (0.000-0.034) ng/mL Total Protein (6.3-8.2) g/dL Albumin (3.5-5.0) g/dL Influenza Type A (PCR) Not Detected (Not Detectd) Influenza Type B (PCR) Not Detected (Not Detectd) RSV (PCR) Not Detected (Not Detectd) SARS-CoV-2 (PCR) Not Detected (Not Detectd) 05/29/24 05/30/24 05/30/24 Range/Units 22:24 00:27 01:24 WBC (3.8-10.6) k/uL RBC (4.30-5.90) m/uL Hgb (13.0-17.5) gm/dL Hct (39.0-53.0) % MCV (80.0-100.0) fL MCH (25.0-35.0) pg MCHC (31.0-37.0) g/dL RDW (11.5-15.5) % Plt Count (150-450) k/uL MPV Neutrophils % (Manual) % Band Neuts % (Manual) % Lymphocytes % (Manual) % Metamyelocytes % % Neutrophils # (Manual) (1.3-7.7) k/uL Lymphocytes # (Manual) (1.0-4.8) k/uL Metamyelocytes # (Man) (0) k/uL Nucleated RBCs (0-0) /100 WBC Manual Slide Review Toxic Granulation Toxic Vacuolation PT (10.0-12.5) sec INR (<1.2) APTT (22.0-30.0) sec Sodium (137-145) mmol/L Potassium (3.5-5.1) mmol/L Chloride (98-107) mmol/L Carbon Dioxide (22-30) mmol/L Anion Gap mmol/L BUN (9-20) mg/dL Creatinine (0.66-1.25) mg/dL Est GFR (CKD-EPI)AfAm (>60 ml/min/1.73 sqM) Est GFR (CKD-EPI)NonAf (>60 ml/min/1.73 sqM) Glucose (74-99) mg/dL Lactic Ac Sepsis Rflx Y Y Plasma Lactic Acid Emmanuel 5.7 H* (0.7-2.0) mmol/L Calcium (8.4-10.2) mg/dL Magnesium (1.6-2.3) mg/dL Total Bilirubin (0.2-1.3) mg/dL AST (17-59) U/L ALT (4-49) U/L Alkaline Phosphatase (38-126) U/L Troponin I (0.000-0.034) ng/mL Total Protein (6.3-8.2) g/dL Albumin (3.5-5.0) g/dL Influenza Type A (PCR) (Not Detectd) Influenza Type B (PCR) (Not Detectd) RSV (PCR) (Not Detectd) SARS-CoV-2 (PCR) (Not Detectd) Disposition Clinical Impression: Weakness, NSTEMI (non-ST elevated myocardial infarction), Lactic acidosis, Acute kidney injury Disposition: ADMITTED IP TO THIS [facility] Condition: Serious Is patient prescribed a controlled substance at d/c from ED?: No Time of Disposition: 01: Decision to Admit Reason: Admit from EC Decision Date: 05/30/24 Decision Time: :21
[2024-05-30] MEDS ORDERED: NALOXONE 0.4 MG/ML 1 ML VIAL IV PRN (01:24)
[2024-05-30] MEDS ORDERED: HEPARIN SODIUM 1,000 UN/ML (10ML VL) IV PRN (01:30)
[2024-05-30] MEDS: SODIUM CHLORIDE 0.9% 1,000 ML IV SCH (01:51)
[2024-05-30 02:55] LABS: Appearance,Urine Cloudy (Clear); Bacteria,Urine Many /hpf; Bilirubin,Urine Negative (Negative); Blood,Urine Large (Negative); Color,Urine Yellow; Glucose,Urine (UA) Negative (Negative); Ketones,Urine Negative (Negative); Leukocyte Esterase,Urine Small (Negative); Nitrite,Urine Negative (Negative); PH, Urine 5.5 (5.0-8.0); Protein,Urine 1+ (Negative); RBC,Urine 5 /hpf (0-5); Specific Gravity,Urine 1.017 (1.001-1.035); Squamous Epithelial Cell,Urine <1 /hpf (0-4); Urobilinogen,Urine <2.0 mg/dL (<2.0); WBC,Urine 19 /hpf (0-5)
--- NOTE | 2024-05-30 03:35 | CT ---
EXAM: CT Head Without Intravenous Contrast CLINICAL HISTORY: ITS.REASON CT Reason: possible head injury TECHNIQUE: Axial computed tomography images of the head/brain without intravenous contrast. CTDI is 49.2 mGy and DLP is 1187.4 mGy-cm. This CT exam was performed using one or more of the following dose reduction techniques: automated exposure control, adjustment of the mA and/or kV according to patient size, and/or use of iterative reconstruction technique. COMPARISON: No relevant prior studies available. FINDINGS: Brain: No hemorrhage, herniation, or mass effect. Chronic microvascular ischemic changes. Severely calcified left vertebral artery Ventricles: No hydrocephalus. Age related cerebral volume loss. Bones/joints: Unremarkable. Soft tissues: Unremarkable. Sinuses: No air fluid levels. Mastoid air cells: Clear. IMPRESSION: No acute hemorrhage, hydrocephalus, or mass effect. Severely calcified left vertebral artery
[2024-05-30] MEDS: HEPARIN SOD,PORK IN 0.45% NACL 25,000 UNIT in 0.45% NACL 1 250ML.BAG IV SCH (03:38)
[2024-05-30] MEDS: TIMOLOL 0.5% OPHTH DROPS 5 ML BTL BOTH EYES SCH (07:25)
[2024-05-30 10:09] LABS: Partial Thromboplastin Time 47.6 sec (22.0-30.0)
--- NOTE | 2024-05-30 10:30 | P.NPCON ---
History of Present Illness - Reason for Consult acute renal failure - History of Present Illness Reason for consultation: Acute kidney injury History of present illness: Patient is a 83-year-old male seen in renal consultation for acute kidney injury. Baseline creatinine near 1 from April 2024 and elevated at 2.37 this admission. Patient came to the hospital due to generalized weakness. Patient states he had about 2 episodes of vomiting and also 2-3 episodes of diarrhea in the last few days. He denies fever but does admit to chills. Patient also felt that his heart rate was high. He denies dizziness or passing out. He does have history of diabetes. Denies history of coronary artery disease. Denies use of nonsteroidals. Oral intake is fair. He did just complete his breakfast. Denie s gross hematuria or dysuria. Lactic acid was noted to be significantly elevated and he did receive 2 L of fluid bolus and is currently maintained on normal saline at 100 cc an hour. He is also on heparin drip. Vital signs are stable. General: No acute distress. HEENT: Head exam is unremarkable. LUNGS: No audible rhonchi or wheezes. HEART: Rate and Rhythm are regular. ABDOMEN: Nontender. EXTREMITITES: No edema. Past Medical History Past Medical History: Diabetes Mellitus, Hypertension Additional Past Medical History / Comment(s): GLAUCOMA, BORDERLINE DIABETIC. change in bowel pattern History of Any Multi-Drug Resistant Organisms: None Reported Past Surgical History: Joint Replacement Additional Past Surgical History / Comment(s): NELA KNEES Past Anesthesia/Blood Transfusion Reactions: No Reported Reaction Past Psychological History: No Psychological Hx Reported Smoking Status: Never smoker Medications and Allergies Home Medications Medication Instructions Recorded Confirmed Type Metoprolol Tartrate [Lopressor] 25 mg PO DAILY 08/15/13 05/30/24 History metFORMIN HCL [Glucophage] 500 mg PO TID 02/26/20 05/30/24 History Brimonidine Tartrate/Timolol 1 drop RIGHT EYE BID 05/30/24 05/30/24 History [Brimonidine-Timolol 0.2%-0.5%] Losartan [Cozaar] 25 mg PO DAILY 05/30/24 05/30/24 History Allergies Allergy/AdvReac Type Severity Reaction Status Date / Time Sulfa (Sulfonamide Allergy Rash/Hives Verified 05/30/24 09:27 Antibiotics) Physical Exam Vitals: Vital Signs Temp Pulse Resp BP Pulse Ox 05/30/24 08:48 98.4 F 90 18 100/56 99 05/30/24 05:00 89 22 95/51 95 05/30/24 01:00 110 H 22 95/59 97 05/29/24 19:36 98.3 F 100 20 108/65 96 Intake and Output 05/29/24 05/30/24 05/30/24 22:59 06:59 14:59 Output Total 400 200 Balance -400 -200 Output: Urine 400 200 Uretheral (Jones) 400 200 Other: Weight 72.575 kg Results - Lab Results Most recent lab results Calcium 8.9 mg/dL (8.4-10.2) 05/29/24 21:52 Magnesium 1.8 mg/dL (1.6-2.3) 05/29/24 21:52 05/29/24 21:52 05/29/24 21:52 Assessment and Plan Plan: Assessment: 1. Acute kidney injury secondary to ATN secondary to hypovolemia further wors ened with the use of losartan and also low blood pressures. Baseline creatinine near 1 and elevated at 2.37 on admission. 2. Metabolic acidosis secondary to acute kidney injury and lactic acidosis. 3. Hypokalemia from poor intake. 4. Diabetes mellitus. Plan: Maintain IV fluids. Check labs today. Replace electrolytes as needed. Continue to hold antihypertensives. Check renal ultrasound. Avoid nephrotoxins. Thank you for the consultation. I will continue to follow the patient with you during his hospital stay.
--- NOTE | 2024-05-30 11:15 | US ---
EXAMINATION TYPE: US kidneys/renal and bladder DATE OF EXAM: 05/30/2024 COMPARISON: NONE CLINICAL INDICATION: Male, 83 years old with history of randall; RANDALL TECHNIQUE: Grayscale imaging of the bilateral kidneys and urinary bladder: FINDINGS: EXAM MEASUREMENTS: Right Kidney: 13.3 x 6.5 x 6.2 cm Left Kidney: 12.2 x 5.9 x 5.3 cm Right Kidney: hydro, probable parapelvic cyst= 2.4 cm Left Kidney: Lobulated contour, no evidence of hydro, lower pole gassed out Bladder: Pt has cath in place There is no evidence for left-sided hydronephrosis. No nephrolithiasis is seen. No masses are ident ified. Bladder cannot be evaluated due to Jones catheter decompression. IMPRESSION: At least moderate right-sided hydronephrosis is present. Consider further clinical and imaging workup . [facility], , 05/30/2024 11:13 AM
--- NOTE | 2024-05-30 11:51 | P.CRDCN ---
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 He has a past medical history of hypertension, diabetes mellitus type 2. We have been asked to evaluate the patient for NSTEMI. Patient states that he has developed some generalized weakness, generalized bodyaches, and fatigue and in general not feeling well. He felt like he had the flu and also had some nausea and vomiting a little bit of diarrhea. No black stools. He was so weak he had difficulty ambulating and he ended up rolling off his bed onto the floor. He did not have a head injury. Patient denies chest pain, no shortness of breath. Patient has been started on a heparin drip. Patient is seen today in the emergency center waiting for a bed on the cardiac stepdown unit. Blood pressure 100/56, heart rate 90, pulse ox 99% on room air. A stat D-dimer was requested which came back elevated at 5.9 and VQ scan was ordered. Nephrology is on consult as well. Patient has been started on heparin drip. -EKG: Sinus rhythm with right bundle branch block -Chest x-ray: No acute process. -CT of the brain: No acute hemorrhage, hydrocephalus or mass effect. Severely calcified left vertebral artery. -Laboratory studies: WBC 8.3, hemoglobin 12.8, platelet count 135. INR 1.4. Sodium 135, potassium 3.5, BUN 52 creatinine 2.37. Lactic acid initially 6.8 and now 2.9. Troponin 0.879, 0.573, 0.531. AST 105, alkaline phosphatase 160. Cepheid viral panel not detected. -Home cardiac medications: Losartan 25 mg daily, Lopressor 25 mg daily Review Of Systems: At the time of my exam: CONSTITUTIONAL: Denies fever or chills. HEENT: Denies blurred vision, vision changes, or eye pain. Denies hemoptysis CARDIOVASCULAR: Denies chest pain. Denies orthopnea. Denies PND. Denies palpitations RESPIRATORY: Denies shortness of breath. GASTROINTESTINAL: Denies abdominal pain. Denies nausea or vomiting. HEMATOLOGIC: Denies bleeding disorders. GENITOURINARY: Denies any blood in urine. SKIN: Denies puritis. Denies rash. Physical examination: Gen: This is a 83-year-old male in no acute distress VS: reviewed HEENT: Head is atraumatic, normocephalic. Pupils equal, round. Sclerae is anicteric. NECK: Supple. No JVD. LUNGS: Clear to auscultation. No wheezes or rhonchi. No intercostal retractions. HEART: Regular rate and rhythm. No murmur. ABDOMEN: Soft No tenderness. EXTREMITIES: No pedal edema. No calf tenderness. NEUROLOGICAL: Patient is awake, alert and oriented x3. Assessment: Elevated troponins of unclear significance most likely secondary to a viral illness Right bundle branch block Acute kidney injury Complaints of generalized weakness, fatigue, body aches Metabolic acidosis secondary to RANDALL Hypokalemia Diabetes mellitus type 2 Hypertension Plan: Home medications on hold May consider resuming beta-richy tomorrow Obtain VQ scan Continue heparin drip Obtain 2-D echocardiogram and Doppler study to assess cardiac structure and function If VQ scan is negative, heparin drip may be discontinued and patient started on subcu heparin for DVT prophylaxis. Further recommendations to follow based upon clinical course At the time of discharge, patient will follow-up in the office with Dr. Nikki Rivas with plan for stress testing in the office once viral symptoms have resolved. Thank you kindly for this consultation. Nurse practitioner note has been reviewed, I agree with documented findings and plan of care. Patient was seen and examined. Past Medical History Past Medical History: Diabetes Mellitus, Hypertension Additional Past Medical History / Comment(s): GLAUCOMA, BORDERLINE DIABETIC. change in bowel pattern History of Any Multi-Drug Resistant Organisms: None Reported Past Surgical History: Joint Replacement Additional Past Surgical History / Comment(s): NELA KNEES Past Anesthesia/Blood Transfusion Reactions: No Reported Reaction Past Psychological History: No Psychological Hx Reported Smoking Status: Never smoker Medications and Allergies Home Medications Medication Instructions Recorded Confirmed Type Metoprolol Tartrate [Lopressor] 25 mg PO DAILY 08/15/13 05/30/24 History metFORMIN HCL [Glucophage] 500 mg PO TID 02/26/20 05/30/24 History Brimonidine Tartrate/Timolol 1 drop RIGHT EYE BID 05/30/24 05/30/24 History [Brimonidine-Timolol 0.2%-0.5%] Losartan [Cozaar] 25 mg PO DAILY 05/30/24 05/30/24 History Allergies Allergy/AdvReac Type Severity Reaction Status Date / Time Sulfa (Sulfonamide Allergy Rash/Hives Verified 05/30/24 09:27 Antibiotics) Physical Exam Vitals: Vital Signs Temp Pulse Resp BP Pulse Ox 05/30/24 05:00 89 22 95/51 95 05/30/24 01:00 110 H 22 95/59 97 05/29/24 19:36 98.3 F 100 20 108/65 96 Intake and Output 05/29/24 05/30/24 05/30/24 22:59 06:59 14:59 Output Total 400 Balance -400 Output: Urine 400 Uretheral (Jones) 400 Other: Weight 72.575 kg Results 05/29/24 21:52 05/29/24 21:52 Cardiac Enzymes 05/29/24 05/29/24 05/30/24 Range/Units 21:52 21:52 02:53 AST 105 H (17-59) U/L Troponin I 0.879 H* 0.573 H* (0.000-0.034) ng/mL 05/30/24 Range/Units 06:30 AST (17-59) U/L Troponin I 0.531 H* (0.000-0.034) ng/mL Coagulation 05/29/24 Range/Units 21:52 PT 15.0 H (10.0-12.5) sec APTT 26.8 (22.0-30.0) sec CBC 05/29/24 Range/Units 21:52 WBC 8.3 (3.8-10.6) k/uL RBC 4.40 (4.30-5.90) m/uL Hgb 12.8 L (13.0-17.5) gm/dL Hct 41.3 (39.0-53.0) % Plt Count 135 L (150-450) k/uL Comprehensive Metabolic Panel 05/29/24 Range/Units 21:52 Sodium 135 L (137-145) mmol/L Potassium 3.4 L (3.5-5.1) mmol/L Chloride 102 (98-107) mmol/L Carbon Dioxide 18 L (22-30) mmol/L BUN 52 H (9-20) mg/dL Creatinine 2.37 H (0.66-1.25) mg/dL Glucose 186 H (74-99) mg/dL Calcium 8.9 (8.4-10.2) mg/dL AST 105 H (17-59) U/L ALT 49 (4-49) U/L Alkaline Phosphatase 160 H (38-126) U/L Total Protein 5.9 L (6.3-8.2) g/dL Albumin 3.5 (3.5-5.0) g/dL Current Medications Generic Name Dose Route Start Last Admin Trade Name Freq PRN Reason Stop Dose Admin Heparin Sodium (Porcine) 0 unit 05/30/24 01:30 Heparin Sodium 1,000 Un/Ml (10ml Vl) IV PER PROTOCOL PRN Low PTT Protocol Sodium Chloride 1,000 mls @ 75 mls/hr 05/30/24 01:30 05/30/24 01:51 Saline 0.9% IV 75 mls/hr .[id number] KRIS Administration Heparin Sodium/Sodium Chloride 250 mls @ 8.709 mls/hr 05/30/24 01:45 05/30/24 03:38 25,000 unit/ Sodium Chloride IV 12 units/kg/hr .Q24H KRIS 8.709 mls/hr Administration Protocol 12 UNITS/KG/HR Naloxone HCl 0.2 mg 05/30/24 01:24 Naloxone 0.4 Mg/Ml 1 Ml Vial IV Q2M PRN Opioid Reversal Timolol Maleate 1 drops 05/30/24 01:45 05/30/24 07:25 Timolol 0.5% Ophth Drops 5 Ml Btl BOTH EYES Not Given BID KRIS Intake and Output 05/29/24 05/30/24 05/30/24 22:59 06:59 14:59 Output Total 400 Balance -400 Output: Urine 400 Uretheral (Jones) 400 Other: Weight 72.575 kg 05/29/24 21:52 05/29/24 21:52
[2024-05-30] MEDS ORDERED: LOSARTAN 25 MG TAB PO SCH (12:15)
[2024-05-30] MEDS ORDERED: METOPROLOL TARTRATE 25 MG TAB PO SCH (12:15)
--- NOTE | 2024-05-30 14:50 | NM ---
EXAMINATION TYPE: NM pul vent and perfuse DATE OF EXAM: 05/30/2024 CLINICAL INDICATION: Male, 83 years old with history of elevated ddimer; shortness of breath COMPARISON: Chest x-ray from one day earlier TECHNIQUE: Utilizing inhalation of 69.6 mCi Tc 99m DTPA aerosol and intravenous injection of 5.2 mCi of Tc 99m MAA, ventilation and perfusion images are acquired post injection in multiple projections. FINDINGS: Normal radiotracer distribution is noted in the lungs. There is no evidence of mismatched defects. IMPRESSION: Low scintigraphic evidence for acute pulmonary embolism. [facility], , 05/30/2024 2:48 PM
[2024-05-30 15:03] LABS: African American GFR (CKD) 31 (>60 ml/min/1.73 sqM); Anion Gap 11 mmol/L; Blood Urea Nitrogen 57 mg/dL (9-20); Calcium 8.8 mg/dL (8.4-10.2); Carbon Dioxide 22 mmol/L (22-30); Chloride 104 mmol/L (98-107); Glucose 173 mg/dL (74-99); Non-African American GFR(CKD) 27 (>60 ml/min/1.73 sqM); Potassium 4.3 mmol/L (3.5-5.1); Sodium 137 mmol/L (137-145)
[2024-05-30 15:27] LABS: Glucose,Whole Blood 78 mg/dL (70-110)
[2024-05-30] MEDS: ACETAMINOPHEN TAB 500 MG TAB PO PRN (17:27)
[2024-05-30 19:52] LABS: Glucose,Whole Blood 116 mg/dL (70-110)
[2024-05-30 20:22] LABS: Appearance,Urine Turbid (Clear); Bacteria,Urine Many /hpf; Bilirubin,Urine Negative (Negative); Blood,Urine Large (Negative); Color,Urine Yellow; Glucose,Urine (UA) Negative (Negative); Ketones,Urine Negative (Negative); Leukocyte Esterase,Urine Large (Negative); Mucus,Urine Occasional /hpf; Nitrite,Urine Positive (Negative); PH, Urine 5.5 (5.0-8.0); Protein,Urine 2+ (Negative); RBC,Urine 12 /hpf (0-5); Specific Gravity,Urine 1.018 (1.001-1.035); Squamous Epithelial Cell,Urine 3 /hpf (0-4); Urobilinogen,Urine <2.0 mg/dL (<2.0); WBC,Urine >182 /hpf (0-5)
--- NOTE | 2024-05-30 21:09 | P.HPIM ---
History of Present Illness H&P Date: 05/30/24 This is a 83-year-old debilitated white male who was admitted after a 2 to 3-day history of flulike symptoms with nausea and vomiting he was brought in by EMS after patient's family called at that they found him on the floor. He is subsequently admitted with acute kidney injury workup for non-STEMI. At the current time he denies any shortness of breath or cough he does admit to weakness he has been nonambulatory for the past few days. He has not had much to eat or drink. He denies any fever although he had 1 later on in the morning he denied denies any dysuria or incontinence Review of Systems GENERAL: fever. Denies chills. EYES: Denies blurred vision. Denies vision changes. Denies eye pain. EARS, NOSE, MOUTH, & THROAT: Denies headache. Denies sore throat. Denies ear pain. RESPIRATORY: Has 2-day history of cough and shortness of breath. CARDIOVASCULAR: Denies chest pain or pressure. GASTROINTESTINAL: Denies abdominal pain but has had nausea and has had 2 days of emesis. GENITOURINARY: Denies urinary frequency. Denies burning. MUSCULOSKELETAL: Admits to significant weakness and difficulty ambulating over the past few days. INTEGUMENTARY: Denies pruitis. Denies rash. PSYCHIATRIC: Denies depression but getting harder to do his daily activities. ENDOCRINE: Admits to weight loss. HEMATOLOGIC: Denies bleeding disorders. Past Medical History Past Medical History: Diabetes Mellitus, Hypertension Additional Past Medical History / Comment(s): GLAUCOMA, BORDERLINE DIABETIC. change in bowel pattern History of Any Multi-Drug Resistant Organisms: None Reported Past Surgical History: Joint Replacement Additional Past Surgical History / Comment(s): NELA KNEES Past Anesthesia/Blood Transfusion Reactions: No Reported Reaction Past Psychological History: No Psychological Hx Reported Smoking Status: Never smoker - Past Family History Mother Family Medical History: No Reported History Medications and Allergies Home Medications Medication Instructions Recorded Confirmed Type Metoprolol Tartrate [Lopressor] 25 mg PO DAILY 08/15/13 05/30/24 History metFORMIN HCL [Glucophage] 500 mg PO TID 02/26/20 05/30/24 History Brimonidine Tartrate/Timolol 1 drop RIGHT EYE BID 05/30/24 05/30/24 History [Brimonidine-Timolol 0.2%-0.5%] Losartan [Cozaar] 25 mg PO DAILY 05/30/24 05/30/24 History Allergies Allergy/AdvReac Type Severity Reaction Status Date / Time Sulfa (Sulfonamide Allergy Rash/Hives Verified 05/30/24 09:27 Antibiotics) Physical Exam Vitals: Vital Signs Temp Pulse Resp BP Pulse Ox 05/30/24 08:48 98.4 F 90 18 100/56 99 05/30/24 05:00 89 22 95/51 95 05/30/24 01:00 110 H 22 95/59 97 05/29/24 19:36 98.3 F 100 20 108/65 96 Intake and Output 05/29/24 05/30/24 05/30/24 22:59 06:59 14:59 Output Total 400 200 Balance -400 -200 Output: Urine 400 200 Uretheral (Jones) 400 200 Other: Weight 72.575 kg 72.575 kg GENERAL: This is a 83-year-old pleasantly confused. HEENT: Head is atraumatic, normocephalic. Mucous membranes are dry lips are dry and chapped. RESPIRATORY: Diminished breath sounds bilateral with few rhonchi. CARDIOVASCULAR: Regular rate and rhythm. GASTROINTESTINAL: No distention noted. Abdomen soft and round. INTEGUMENTARY: No cyanosis. No jaundice. No rashes noted. No cellulitis noted. EXTREMITIES: 2+ peripheral pulses. No evidence of peripheral edema. No calf tenderness noted. NEUROLOGIC: Cranial nerves II-XII intact. PSYCHIATRIC: Awake, alert, and oriented X 3. Appropriate affect. Intact judgement and insight. Results CBC & Chem 7: 05/29/24 21:52 05/30/24 11:18 Labs: Abnormal Lab Results - Last 24 Hours (Table) 05/29/24 05/29/24 05/29/24 Range/Units 21:52 21:52 21:52 Hgb 12.8 L (13.0-17.5) gm/dL MCHC 30.9 L (31.0-37.0) g/dL Plt Count 135 L (150-450) k/uL Lymphocytes # (Manual) 0.33 L (1.0-4.8) k/uL Metamyelocytes # (Man) 0.58 H (0) k/uL PT 15.0 H (10.0-12.5) sec INR 1.4 H (<1.2) APTT (22.0-30.0) sec D-Dimer (<0.60) mg/L FEU Sodium 135 L (137-145) mmol/L Potassium 3.4 L (3.5-5.1) mmol/L Carbon Dioxide 18 L (22-30) mmol/L BUN 52 H (9-20) mg/dL Creatinine 2.37 H (0.66-1.25) mg/dL Glucose 186 H (74-99) mg/dL Plasma Lactic Acid Emmanuel (0.7-2.0) mmol/L AST 105 H (17-59) U/L Alkaline Phosphatase 160 H (38-126) U/L Troponin I (0.000-0.034) ng/mL Total Protein 5.9 L (6.3-8.2) g/dL Urine Protein (Negative) Urine Blood (Negative) Ur Leukocyte Esterase (Negative) Urine WBC (0-5) /hpf Urine Bacteria (None) /hpf 05/29/24 05/29/24 05/30/24 Range/Units 21:52 21:52 00:27 Hgb (13.0-17.5) gm/dL MCHC (31.0-37.0) g/dL Plt Count (150-450) k/uL Lymphocytes # (Manual) (1.0-4.8) k/uL Metamyelocytes # (Man) (0) k/uL PT (10.0-12.5) sec INR (<1.2) APTT (22.0-30.0) sec D-Dimer (<0.60) mg/L FEU Sodium (137-145) mmol/L Potassium (3.5-5.1) mmol/L Carbon Dioxide (22-30) mmol/L BUN (9-20) mg/dL Creatinine (0.66-1.25) mg/dL Glucose (74-99) mg/dL Plasma Lactic Acid Emmanuel 6.8 H* 5.7 H* (0.7-2.0) mmol/L AST (17-59) U/L Alkaline Phosphatase (38-126) U/L Troponin I 0.879 H* (0.000-0.034) ng/mL Total Protein (6.3-8.2) g/dL Urine Protein (Negative) Urine Blood (Negative) Ur Leukocyte Esterase (Negative) Urine WBC (0-5) /hpf Urine Bacteria (None) /hpf 05/30/24 05/30/24 05/30/24 Range/Units 02:23 02:53 04:16 Hgb (13.0-17.5) gm/dL MCHC (31.0-37.0) g/dL Plt Count (150-450) k/uL Lymphocytes # (Manual) (1.0-4.8) k/uL Metamyelocytes # (Man) (0) k/uL PT (10.0-12.5) sec INR (<1.2) APTT (22.0-30.0) sec D-Dimer (<0.60) mg/L FEU Sodium (137-145) mmol/L Potassium (3.5-5.1) mmol/L Carbon Dioxide (22-30) mmol/L BUN (9-20) mg/dL Creatinine (0.66-1.25) mg/dL Glucose (74-99) mg/dL Plasma Lactic Acid Emmanuel 3.5 H* (0.7-2.0) mmol/L AST (17-59) U/L Alkaline Phosphatase (38-126) U/L Troponin I 0.573 H* (0.000-0.034) ng/mL Total Protein (6.3-8.2) g/dL Urine Protein 1+ H (Negative) Urine Blood Large H (Negative) Ur Leukocyte Esterase Small H (Negative) Urine WBC 19 H (0-5) /hpf Urine Bacteria Many H (None) /hpf 05/30/24 05/30/24 05/30/24 Range/Units 06:30 07:26 08:37 Hgb (13.0-17.5) gm/dL MCHC (31.0-37.0) g/dL Plt Count (150-450) k/uL Lymphocytes # (Manual) (1.0-4.8) k/uL Metamyelocytes # (Man) (0) k/uL PT (10.0-12.5) sec INR (<1.2) APTT 47.6 H (22.0-30.0) sec D-Dimer 5.95 H (<0.60) mg/L FEU Sodium (137-145) mmol/L Potassium (3.5-5.1) mmol/L Carbon Dioxide (22-30) mmol/L BUN (9-20) mg/dL Creatinine (0.66-1.25) mg/dL Glucose (74-99) mg/dL Plasma Lactic Acid Emmanuel 2.9 H* (0.7-2.0) mmol/L AST (17-59) U/L Alkaline Phosphatase (38-126) U/L Troponin I 0.531 H* (0.000-0.034) ng/mL Total Protein (6.3-8.2) g/dL Urine Protein (Negative) Urine Blood (Negative) Ur Leukocyte Esterase (Negative) Urine WBC (0-5) /hpf Urine Bacteria (None) /hpf Thrombosis Risk Factor Assmnt - Choose All That Apply Any of the Below Risk Factors Present?: No Other Risk Factors: Yes Each Risk Factor Represents 3 Points: Age 75 years or older Other congenital or acquired thrombophilia - If yes, enter type in comment: No Thrombosis Risk Factor Assessment Total Risk Factor Score: 3 Thrombosis Risk Factor Assessment Level: Moderate Risk Assessment and Plan (1) Metabolic acidosis Current Visit: Yes Status: Acute Code(s): E87.20 - ACIDOSIS, UNSPECIFIED SNOMED Code(s): 55178387 (2) Acute kidney injury Current Visit: Yes Status: Acute Code(s): N17.9 - ACUTE KIDNEY FAILURE, UNSPECIFIED SNOMED Code(s): 58419955 (3) Fall Current Visit: Yes Status: Acute Code(s): W19.XXXA - UNSPECIFIED FALL, INITIAL ENCOUNTER SNOMED Code(s): 2282866 (4) Lactic acidosis Current Visit: Yes Status: Acute Code(s): E87.20 - ACIDOSIS, UNSPECIFIED SNOMED Code(s): 66000893 (5) NSTEMI (non-ST elevated myocardial infarction) Current Visit: Yes Status: Acute Code(s): I21.4 - NON-ST ELEVATION (NSTEMI) MYOCARDIAL INFARCTION SNOMED Code(s): 96538817 (6) Weakness Current Visit: Yes Status: Acute Code(s): R53.1 - WEAKNESS SNOMED Code(s): 79196790 Plan: Patient will be admitted with cardiology consult already in progress to rule out MO. Also nephrology is to see patient regarding the acute kidney injury and metabolic acidosis. director human services to consult and participate regarding possible placement. Patient has profound weakness continue to follow patient metabolically until stable.
[2024-05-30] MEDS: SODIUM CHLORIDE 0.9% 1,000 ML IV ONE (21:21)
[2024-05-30] MEDS: TIMOLOL 0.5% OPHTH DROPS 5 ML BTL RIGHT EYE SCH (21:21)
[2024-05-30] MEDS: BRIMONIDINE TARTRATE 0.2% DROPS 5 ML BTL RIGHT EYE SCH (23:37)
[2024-05-31] MEDS ORDERED: DEXTROSE 50% SYRINGE 50 ML IVP PRN ×2 (02:14)
--- NOTE | 2024-05-31 02:26 | P.CNPUL ---
History of Present Illness Consult date: 05/31/24 Requesting physician: Katelyn Archer Reason for consult: other (Hypotension) Chief complaint: Generalized weakness, nausea, fevers History of present illness: Consult was placed for critical care evaluation and hypotension. Patient is a 83-year-old male with past medical history significant for diabetes mellitus, hypertension. PCP is Dr. Walls. Brought in by EMS yesterday evening. Chief co mplaint of generalized weakness, fever/chills, and nausea without vomiting. Reportedly increased generalized weakness and unable to walk. Rolled out of bed. Workup in the emergency department including a brain CT which did not show any intracranial bleed or mass effect. Serial troponins were elevated and patient was started on IV heparin. Cardiology seen the patient for possible non-ST elevation MD. Also, D-dimer was elevated at 5.95. Patient suffered for acute kidney injury and unable to undergo CT angio protocol. Did have a VQ scan which showed low scintigraphic evidence for acute PE. Urinalysis appears positive for UTI. Empirically started on IV Rocephin. Has had UTIs in January and again in April of this year. Ultrasound of kidney and bladder showing at least moderate right-sided hydronephrosis. No obvious nephrolithiasis or masses. CBC: WBC count 8.3, hemoglobin 12.8, platelets 135. Mos CMP: Sodium 135, potassium 3.4, chloride 102, serum bicarb 18, BUN 52, creatinine 2.37, glucose 186. LFTs unremarkable. Serial troponins elevated at 0.88, 0.531. EKG: Sinus tachycardia, rate 103 bpm, RBBB pattern. Patient reportedly hypotensive in the emergency department, and a consult was placed for ICU evaluation. Patient previously received 1.5 L fluid bolus. Blood pressure is currently 100/57 mmHg. Heart rate is nontachycardic. Lactic was previously elevated at 6.8 and is down to 1.9. Patient denies dysuria, hematuria, flank pain. Mild suprapubic discomfort. Denies history of kidney stones. Does have indwelling urinary catheter inserted in the emergency department. Cloudy yellow urine. Was febrile with a Tmax of 104 F. He is receiving IV Rocephin. Does report above-mentioned symptoms, thought he had a "virus". Denies any difficulty in breathing, cough, sputum production, hemoptysis. Rhinorrhea, congestion, sore throat, sinus pressure. Chest x-ray did not show any acute cardiopulmonary process. Viral 4 Plex negative for influenza A/B, RSV, COVID. Denies any chest pain, heart palpitations, lightheadedness or syncopal events, orthopnea, lower extremity edema. Current most recent vital signs: Temperature 98.1 F, heart rate 98 bpm, blood pressure 100/57 mmHg, SpO2 reading 97% on 2 L/min nasal cannula. Review of Systems Constitutional: Reports chills, Reports fatigue, Reports fever, Reports poor appetite, Reports weakness, Denies weight gain, Denies weight loss Ears, nose, mouth and throat: Denies epistaxis, Denies headache, Denies nasal congestion, Denies nasal discharge, Denies post-nasal drip, Denies sinus pain, Denies sinus pressure, Denies sore throat Cardiovascular: Denies chest pain, Denies dyspnea on exertion, Denies leg edema, Denies lightheadedness, Denies orthopnea, Denies palpitations, Denies paroxysmal nocturnal dyspnea, Denies syncope Respiratory: Denies congestion, Denies cough, Denies dyspnea, Denies hemoptysis, Denies home oxygen Gastrointestinal: Reports diarrhea (Self-limiting, 2 episodes of loose stools at home), Reports nausea, Denies abdominal pain, Denies change in bowel habits, Denies hematemesis, Denies hematochezia, Denies melena, Denies vomiting Genitourinary: Denies dysuria, Denies flank pain, Denies hematuria, Denies ki dney stones, Denies urinary retention Musculoskeletal: Denies limitation of motion Integumentary: Denies rash Neurological: Reports weakness (Generalized), Denies confusion, Denies head injury, Denies headaches, Denies numbness, Denies paralysis, Denies paresthesias, Denies seizures, Denies syncope, Denies visual changes Psychiatric: Denies anxiety, Denies depression Past Medical History Past Medical History: Diabetes Mellitus, Hypertension Additional Past Medical History / Comment(s): GLAUCOMA, BORDERLINE DIABETIC. change in bowel pattern History of Any Multi-Drug Resistant Organisms: None Reported Past Surgical History: Joint Replacement Additional Past Surgical History / Comment(s): NELA KNEES Past Anesthesia/Blood Transfusion Reactions: No Reported Reaction Past Psychological History: No Psychological Hx Reported Smoking Status: Never smoker - Past Family History Mother Family Medical History: No Reported History Medications and Allergies Home Medications Medication Instructions Recorded Confirmed Type Metoprolol Tartrate [Lopressor] 25 mg PO DAILY 08/15/13 05/30/24 History metFORMIN HCL [Glucophage] 500 mg PO TID 02/26/20 05/30/24 History Brimonidine Tartrate/Timolol 1 drop RIGHT EYE BID 05/30/24 05/30/24 History [Brimonidine-Timolol 0.2%-0.5%] Losartan [Cozaar] 25 mg PO DAILY 05/30/24 05/30/24 History Allergies Allergy/AdvReac Type Severity Reaction Status Date / Time Sulfa (Sulfonamide Allergy Rash/Hives Verified 05/30/24 09:27 Antibiotics) Physical Exam Vitals: Vital Signs Temp Pulse Pulse Resp BP BP Pulse Ox 05/31/24 00:00 98.1 F 83 17 93/56 96 05/30/24 23:30 98 26 H 100/57 97 05/30/24 22:33 98.0 F 96 27 H 88/53 97 05/30/24 22:00 98.3 F 93 28 H 90/55 98 05/30/24 20:55 100.3 F H 96 28 H 86/51 98 05/30/24 20:13 99 26 H 84/60 96 05/30/24 19:51 101.3 F H 101 H 26 H 91/53 97 05/30/24 19:00 108 H 26 H 115/56 97 05/30/24 18:59 102.9 F H 05/30/24 18:00 128/59 05/30/24 17:00 106/63 05/30/24 16:55 104.0 F H 05/30/24 16:00 103/83 98 05/30/24 15:00 106/79 97 05/30/24 14:52 86 16 104/78 95 05/30/24 13:15 103/68 05/30/24 08:48 98.4 F 90 18 100/56 99 05/30/24 05:00 89 22 95/51 95 Intake and Output 05/30/24 05/30/24 05/31/24 14:59 22:59 06:59 Output Total 200 1500 Balance -200 -1500 Output: Urine 200 1500 Uretheral (Jones) 200 Other: Weight 72.575 kg GENERAL EXAM: Alert, 83-year-old white male, comfortable in no apparent distress. HEAD: Normocephalic and atraumatic EYES: Normal reaction of pupils, equal size. NOSE: Clear with pink turbinates. THROAT: No erythema or exudates. NECK: No masses, no JVD. CHEST: No chest wall deformity. LUNGS: Equal air entry with no crackles, wheeze, rhonchi or dullness. On 2 L/min nasal cannula. No conversational dyspnea or accessory muscle use.. CVS: S1 and S2 normal with no audible murmur, regular rhythm. No extra heart sounds ABDOMEN: No hepatosplenomegaly, active bowel sounds, no guarding or rigidity. SPINE: No scoliosis or deformity SKIN: No rashes CENTRAL NERVOUS SYSTEM: No focal deficits, tone is normal in all 4 extremities. EXTREMITIES: There is no peripheral edema, clubbing, or cyanosis. Peripheral pulses are intact. Results - Laboratory Findings CBC and BMP: 05/31/24 06:48 05/31/24 06:48 PT/INR, D-dimer PT 15.0 sec (10.0-12.5) H 05/29/24 21:52 INR 1.4 (<1.2) H 05/29/24 21:52 D-Dimer 5.95 mg/L FEU (<0.60) H 05/30/24 08:37 Abnormal lab findings: Abnormal Labs 05/29/24 05/29/24 05/29/24 21:52 21:52 21:52 Hgb 12.8 L MCHC 30.9 L Plt Count 135 L Lymphocytes # (Manual) 0.33 L Metamyelocytes # (Man) 0.58 H PT 15.0 H INR 1.4 H APTT D-Dimer Sodium 135 L Potassium 3.4 L Carbon Dioxide 18 L BUN 52 H Creatinine 2.37 H Glucose 186 H POC Glucose (mg/dL) Plasma Lactic Acid Emmanuel AST 105 H Alkaline Phosphatase 160 H Troponin I Total Protein 5.9 L Urine Protein Urine Blood Ur Leukocyte Esterase Urine RBC Urine WBC Urine WBC Clumps Urine Bacteria Urine Mucus 05/29/24 05/29/24 05/30/24 21:52 21:52 00:27 Hgb MCHC Plt Count Lymphocytes # (Manual) Metamyelocytes # (Man) PT INR APTT D-Dimer Sodium Potassium Carbon Dioxide BUN Creatinine Glucose POC Glucose (mg/dL) Plasma Lactic Acid Emmanuel 6.8 H* 5.7 H* AST Alkaline Phosphatase Troponin I 0.879 H* Total Protein Urine Protein Urine Blood Ur Leukocyte Esterase Urine RBC Urine WBC Urine WBC Clumps Urine Bacteria Urine Mucus 05/30/24 05/30/24 05/30/24 02:23 02:53 04:16 Hgb MCHC Plt Count Lymphocytes # (Manual) Metamyelocytes # (Man) PT INR APTT D-Dimer Sodium Potassium Carbon Dioxide BUN Creatinine Glucose POC Glucose (mg/dL) Plasma Lactic Acid Emmanuel 3.5 H* AST Alkaline Phosphatase Troponin I 0.573 H* Total Protein Urine Protein 1+ H Urine Blood Large H Ur Leukocyte Esterase Small H Urine RBC Urine WBC 19 H Urine WBC Clumps Urine Bacteria Many H Urine Mucus 05/30/24 05/30/24 05/30/24 06:30 07:26 08:37 Hgb MCHC Plt Count Lymphocytes # (Manual) Metamyelocytes # (Man) PT INR APTT 47.6 H D-Dimer 5.95 H Sodium Potassium Carbon Dioxide BUN Creatinine Glucose POC Glucose (mg/dL) Plasma Lactic Acid Emmanuel 2.9 H* AST Alkaline Phosphatase Troponin I 0.531 H* Total Protein Urine Protein Urine Blood Ur Leukocyte Esterase Urine RBC Urine WBC Urine WBC Clumps Urine Bacteria Urine Mucus 05/30/24 05/30/24 05/30/24 11:18 11:18 14:54 Hgb MCHC Plt Count Lymphocytes # (Manual) Metamyelocytes # (Man) PT INR APTT D-Dimer Sodium Potassium Carbon Dioxide BUN 57 H Creatinine 2.22 H Glucose 173 H POC Glucose (mg/dL) Plasma Lactic Acid Emmanuel 2.7 H* 2.7 H* AST Alkaline Phosphatase Troponin I Total Protein Urine Protein Urine Blood Ur Leukocyte Esterase Urine RBC Urine WBC Urine WBC Clumps Urine Bacteria Urine Mucus 05/30/24 05/30/24 05/30/24 18:15 19:51 20:00 Hgb MCHC Plt Count Lymphocytes # (Manual) Metamyelocytes # (Man) PT INR APTT D-Dimer Sodium Potassium Carbon Dioxide BUN Creatinine Glucose POC Glucose (mg/dL) 116 H Plasma Lactic Acid Emmanuel 3.2 H* AST Alkaline Phosphatase Troponin I Total Protein Urine Protein 2+ H Urine Blood Large H Ur Leukocyte Esterase Large H Urine RBC 12 H Urine WBC >182 H Urine WBC Clumps Occasional H Urine Bacteria Many H Urine Mucus Occasional H 05/30/24 05/30/24 20:13 21:36 Hgb MCHC Plt Count Lymphocytes # (Manual) Metamyelocytes # (Man) PT INR APTT D-Dimer Sodium Potassium Carbon Dioxide BUN Creatinine Glucose POC Glucose (mg/dL) Plasma Lactic Acid Emmanuel 2.9 H* <0.5 L AST Alkaline Phosphatase Troponin I Total Protein Urine Protein Urine Blood Ur Leukocyte Esterase Urine RBC Urine WBC Urine WBC Clumps Urine Bacteria Urine Mucus - Diagnostic Findings Chest x-ray: image reviewed Assessment and Plan Assessment: Suspect UTI/urosepsis Anion gap metabolic acidosis and lactic acidosis, improved Hypotension, improved with fluid resuscitation Acute febrile illness Acute kidney injury, renal bladder ultrasound shows right-sided moderate hydronephrosis. No obvious nephrolithiasis or masses appreciated. Moderate right-sided hydronephrosis Elevated troponins, evaluated by cardiology, felt ACS to be unlikely. Elevated D-dimer, VQ scan showed low scintigraphic evidence for acute PE Diabetes mellitus type 2 History of hypertension Plan: Consult was placed for ICU evaluation in regards to hypotension, this is improved with fluid resuscitation UA appears positive for urinary tract infection, currently covered empirically on Rocephin Ultrasound renal and bladder shows moderate right-sided hydronephrosis. Consult urology. Cardiology felt ACS to be unlikely, and recommended discontinuing heparin infusion if VQ scan is unremarkable. I agree with this and heparin will be discontinued. Continue IV maintenance fluids Add sliding scale insulin Add heparin for DVT prophylaxis We will continue to follow I have personally seen and examined the patient, performed the documentation and the assessment and plan as written. Number of minutes spent on the visit:20 This is a joint evaluation that was done along with the nurse practitioner. This evaluation was done and 33 minutes. The patient was hospitalized with generalized weakness, fever and chills and some nausea without emesis. He was having global generalized weakness. The patient had a CAT scan of the brain in the emergency, no acute abnormalities. The patient has developed an acute kidney injury. Creatinine was at 2.3 at time of admission and currently is down to 1.6. The patient is responding nicely to IV fluids. Producing urine output. No significant leukocytosis. Potassium level is within normal limits. Troponins were minimally elevated and cardiology consultation has been obtained. The elevation in troponins was considered to be a nonspecific finding. No further workup was recommended. 2D echocardiogram was ordered and results are still pending. Meanwhile, the patient was given a VQ scan that came back of a low probability. Ultrasound of kidneys was also done that moderate right-sided hydronephrosis that needs to be further investigated. Nephrology has been involved on the case in addition to urology. Chest x-ray was also reviewed from the time of admission shows no acute abnormalities. The patient's viral screen came back negative. The patient has gram-negative septicemia secondary to underlying urinary tract infection. Noted his urine culture was also positive back in April 2024 with E. coli. This is most likely an E. coli septicemia. The patient is currently on IV Rocephin. Awake and alert and communicating and is currently on 2 L of oxygen by nasal cannula. This was explained to the family at the bedside. No need for ICU admission at this point as the patient is currently hemodynamically stable. He is being treated for a gram-negative UTI and sepsis on the medical floor. Time with Patient: Greater than 30
[2024-05-31 03:37] LABS: HCT 35.1 % (39.0-53.0); HGB 11.4 gm/dL (13.0-17.5); MCH 30.1 pg (25.0-35.0); MCHC 32.5 g/dL (31.0-37.0); MCV 92.6 fL (80.0-100.0); Mean Platelet Volume 8.4; WBC 12.1 k/uL (3.8-10.6)
[2024-05-31 06:10] LABS: Platelet Count 94 k/uL (150-450)
[2024-05-31] MEDS: INSULIN LISPRO (HumaLOG) 100 UNIT/ML 10 mL VL SQ SCH (06:54)
[2024-05-31 06:55] LABS: Glucose,Whole Blood 131 mg/dL (70-110)
[2024-05-31 07:21] LABS: Basophils % (A) 0 %; Eosinophils % (A) 0 %; HCT 35.4 % (39.0-53.0); HGB 11.3 gm/dL (13.0-17.5); Lymphocytes # (A) 0.3 k/uL (1.0-4.8); Lymphocytes % (A) 3 %; MCH 29.7 pg (25.0-35.0); MCHC 31.9 g/dL (31.0-37.0); MCV 93.3 fL (80.0-100.0); Mean Platelet Volume 8.7; Monocytes # (A) 0.2 k/uL (0-1.0); Monocytes % (A) 2 %; Neutrophils # (A) 8.8 k/uL (1.3-7.7); Neutrophils % (A) 93 %; RBC 3.79 m/uL (4.30-5.90); RDW 13.9 % (11.5-15.5); WBC 9.4 k/uL (3.8-10.6)
[2024-05-31 07:23] LABS: INR 1.1 (<1.2); Prothrombin Time 12.1 sec (10.0-12.5)
[2024-05-31 07:46] LABS: African American GFR (CKD) 43 (>60 ml/min/1.73 sqM); Anion Gap 9 mmol/L; Blood Urea Nitrogen 50 mg/dL (9-20); Calcium 7.8 mg/dL (8.4-10.2); Carbon Dioxide 19 mmol/L (22-30); Chloride 107 mmol/L (98-107); Glucose 126 mg/dL (74-99); Non-African American GFR(CKD) 37 (>60 ml/min/1.73 sqM); Potassium 3.7 mmol/L (3.5-5.1); Sodium 135 mmol/L (137-145)
[2024-05-31] MEDS: HEPARIN SODIUM,PORCINE 5,000 UNIT/ML 1 ML VIAL SQ SCH (08:36)
[2024-05-31 09:37] LABS: RBC Morphology Normal
[2024-05-31 09:39] LABS: Platelet Count 91 k/uL (150-450)
--- NOTE | 2024-05-31 10:10 | P.PN ---
Subjective Patient is seen in follow-up for acute kidney injury. Renal function improving. Nonoliguric. On IV fluids. Oral intake fair. Vital signs are stable. General: No acute distress. HEENT: Head exam is unremarkable. LUNGS: Rebeca no audible rhonchi or wheezes. HEART: Rate and Rhythm are regular. ABDOMEN: Nontender. EXTREMITITES: No edema. Objective - Vital Signs Vital signs: Vital Signs Temp 98.2 F 05/31/24 08:00 Pulse 88 05/31/24 08:00 Resp 16 05/31/24 08:00 BP 118/66 05/31/24 08:00 Pulse Ox 94 L 05/31/24 08:00 FiO2 Intake & Output 05/30/24 05/31/24 05/31/24 18:59 06:59 18:59 Intake Total 0 240 Output Total 200 1500 400 Balance -200 -1500 -160 Weight 72.575 kg 62.7 kg Intake: Oral 0 240 Output: Urine 200 1500 400 Uretheral (Jones) 200 Other: Voiding Method Indwelling Catheter Indwelling Catheter - Labs CBC & Chem 7: 05/31/24 06:48 05/31/24 06:48 Labs: Abnormal Lab Results - Last 24 Hours (Table) 05/30/24 05/30/24 05/30/24 Range/Units 08:37 11:18 11:18 WBC (3.8-10.6) k/uL RBC (4.30-5.90) m/uL Hgb (13.0-17.5) gm/dL Hct (39.0-53.0) % Plt Count (150-450) k/uL Neutrophils # (1.3-7.7) k/uL Lymphocytes # (1.0-4.8) k/uL APTT 47.6 H (22.0-30.0) sec D-Dimer 5.95 H (<0.60) mg/L FEU Sodium (137-145) mmol/L Carbon Dioxide (22-30) mmol/L BUN 57 H (9-20) mg/dL Creatinine 2.22 H (0.66-1.25) mg/dL Glucose 173 H (74-99) mg/dL POC Glucose (mg/dL) (70-110) mg/dL Plasma Lactic Acid Emmanuel 2.7 H* (0.7-2.0) mmol/L Calcium (8.4-10.2) mg/dL Urine Protein (Negative) Urine Blood (Negative) Ur Leukocyte Esterase (Negative) Urine RBC (0-5) /hpf Urine WBC (0-5) /hpf Urine WBC Clumps (None) /hpf Urine Bacteria (None) /hpf Urine Mucus (None) /hpf 05/30/24 05/30/24 05/30/24 Range/Units 14:54 18:15 19:51 WBC (3.8-10.6) k/uL RBC (4.30-5.90) m/uL Hgb (13.0-17.5) gm/dL Hct (39.0-53.0) % Plt Count (150-450) k/uL Neutrophils # (1.3-7.7) k/uL Lymphocytes # (1.0-4.8) k/uL APTT (22.0-30.0) sec D-Dimer (<0.60) mg/L FEU Sodium (137-145) mmol/L Carbon Dioxide (22-30) mmol/L BUN (9-20) mg/dL Creatinine (0.66-1.25) mg/dL Glucose (74-99) mg/dL POC Glucose (mg/dL) 116 H (70-110) mg/dL Plasma Lactic Acid Emmanuel 2.7 H* 3.2 H* (0.7-2.0) mmol/L Calcium (8.4-10.2) mg/dL Urine Protein (Negative) Urine Blood (Negative) Ur Leukocyte Esterase (Negative) Urine RBC (0-5) /hpf Urine WBC (0-5) /hpf Urine WBC Clumps (None) /hpf Urine Bacteria (None) /hpf Urine Mucus (None) /hpf 05/30/24 05/30/24 05/30/24 Range/Units 20:00 20:13 21:36 WBC (3.8-10.6) k/uL RBC (4.30-5.90) m/uL Hgb (13.0-17.5) gm/dL Hct (39.0-53.0) % Plt Count (150-450) k/uL Neutrophils # (1.3-7.7) k/uL Lymphocytes # (1.0-4.8) k/uL APTT (22.0-30.0) sec D-Dimer (<0.60) mg/L FEU Sodium (137-145) mmol/L Carbon Dioxide (22-30) mmol/L BUN (9-20) mg/dL Creatinine (0.66-1.25) mg/dL Glucose (74-99) mg/dL POC Glucose (mg/dL) (70-110) mg/dL Plasma Lactic Acid Emmanuel 2.9 H* <0.5 L (0.7-2.0) mmol/L Calcium (8.4-10.2) mg/dL Urine Protein 2+ H (Negative) Urine Blood Large H (Negative) Ur Leukocyte Esterase Large H (Negative) Urine RBC 12 H (0-5) /hpf Urine WBC >182 H (0-5) /hpf Urine WBC Clumps Occasional H (None) /hpf Urine Bacteria Many H (None) /hpf Urine Mucus Occasional H (None) /hpf 05/31/24 05/31/24 05/31/24 Range/Units 02:40 06:48 06:48 WBC 12.1 H (3.8-10.6) k/uL RBC 3.80 L 3.79 L (4.30-5.90) m/uL Hgb 11.4 L 11.3 L (13.0-17.5) gm/dL Hct 35.1 L 35.4 L (39.0-53.0) % Plt Count 94 L 91 L (150-450) k/uL Neutrophils # 8.8 H (1.3-7.7) k/uL Lymphocytes # 0.3 L (1.0-4.8) k/uL APTT (22.0-30.0) sec D-Dimer (<0.60) mg/L FEU Sodium 135 L (137-145) mmol/L Carbon Dioxide 19 L (22-30) mmol/L BUN 50 H (9-20) mg/dL Creatinine 1.69 H (0.66-1.25) mg/dL Glucose 126 H (74-99) mg/dL POC Glucose (mg/dL) (70-110) mg/dL Plasma Lactic Acid Emmanuel (0.7-2.0) mmol/L Calcium 7.8 L (8.4-10.2) mg/dL Urine Protein (Negative) Urine Blood (Negative) Ur Leukocyte Esterase (Negative) Urine RBC (0-5) /hpf Urine WBC (0-5) /hpf Urine WBC Clumps (None) /hpf Urine Bacteria (None) /hpf Urine Mucus (None) /hpf 05/31/24 Range/Units 06:53 WBC (3.8-10.6) k/uL RBC (4.30-5.90) m/uL Hgb (13.0-17.5) gm/dL Hct (39.0-53.0) % Plt Count (150-450) k/uL Neutrophils # (1.3-7.7) k/uL Lymphocytes # (1.0-4.8) k/uL APTT (22.0-30.0) sec D-Dimer (<0.60) mg/L FEU Sodium (137-145) mmol/L Carbon Dioxide (22-30) mmol/L BUN (9-20) mg/dL Creatinine (0.66-1.25) mg/dL Glucose (74-99) mg/dL POC Glucose (mg/dL) 131 H (70-110) mg/dL Plasma Lactic Acid Emmanuel (0.7-2.0) mmol/L Calcium (8.4-10.2) mg/dL Urine Protein (Negative) Urine Blood (Negative) Ur Leukocyte Esterase (Negative) Urine RBC (0-5) /hpf Urine WBC (0-5) /hpf Urine WBC Clumps (None) /hpf Urine Bacteria (None) /hpf Urine Mucus (None) /hpf Assessment and Plan Plan: Assessment: 1. Acute kidney injury secondary to ATN secondary to hypovolemia further worsened with the use of losartan and also low blood pressures. Baseline creatinine near 1. Creatinine 2.37 on admission and is 1.69 today. 2. Metabolic acidosis secondary to acute kidney injury and IV fluids. 3. Hypokalemia from poor intake. Replaced. Better. 4. Diabetes mellitus. 5. Right-sided hydronephrosis. Urology consulted. Plan: Maintain IV fluids. Replace electrolytes as needed. Continue to hold antihypertensives. Consult urology for the hydronephrosis. Avoid nephrotoxins. Add oral bicarb. Follow-up echocardiogram.
[2024-05-31] MEDS: SODIUM BICARBONATE TAB 650 MG TAB PO SCH (12:18)
[2024-05-31 12:19] LABS: Glucose,Whole Blood 155 mg/dL (70-110)
--- NOTE | 2024-05-31 12:43 | P.PN ---
Subjective Progress Note Date: 05/31/24 Reason for Consult (text): NSTEMI History of present illness: This is an 83-year-old male patient with no previous cardiac history and does not follow with a upper trimmer. He has a past medical history of hypertension, diabetes mellitus type 2. We have been asked to evaluate the patient for NSTEMI. Patient states that he has developed some generalized weakness, generalized bodyaches, and fatigue and in general not feeling well. He felt like he had the flu and also had some nausea and vomiting a little bit of diarrhea. No black stools. He was so weak he had difficulty ambulating and he ended up rolling off his bed onto the floor. He did not have a head injury. Patient denies chest pain, no shortness of breath. Patient has been started on a heparin drip. Patient is seen today in the emergency center waiting for a bed on the cardiac stepdown unit. Blood pressure 100/56, heart rate 90, pulse ox 99% on room air. A stat D-dimer was requested which came back elevated at 5.9 and VQ scan was ordered. Nephrology is on consult as well. Patient has been started on heparin drip. -EKG: Sinus rhythm with right bundle branch block -Chest x-ray: No acute process. -CT of the brain: No acute hemorrhage, hydrocephalus or mass effect. Severely calcified left vertebral artery. -Laboratory studies: WBC 8.3, hemoglobin 12.8, platelet count 135. INR 1.4. Sodium 135, potassium 3.5, BUN 52 creatinine 2.37. Lactic acid initially 6.8 and now 2.9. Troponin 0.879, 0.573, 0.531. AST 105, alkaline phosphatase 160. Cepheid viral panel not detected. -Home cardiac medications: Losartan 25 mg daily, Lopressor 25 mg daily 05/31 Patient seen and examined on the cardiac stepdown unit. Yesterday he underwent a VQ scan which came back low probability for PE. Patient states that he is not feeling better from yesterday. He continues to have general weakness fatigue and bodyaches. He states he may even feel worse from yesterday. He has been started on IV antibiotics. Temperature max 104. Blood pressure 118/66, heart rate 88, pulse ox 94% on 2 L nasal cannula. Repeat blood work reveals WBC 9.4, hemoglobin 11.3, platelet count 91. Sodium 135, potassium 3.7, BUN 50 and creatinine 1.69. Heparin drip has been discontinued. Echocardiogram has been obtained and report is pending. Physical examination: Gen: This is a 83-year-old male in no acute distress VS: reviewed HEENT: Head is atraumatic, normocephalic. Pupils equal, round. Sclerae is anicteric. NECK: Supple. No JVD. LUNGS: Clear to auscultation. No wheezes or rhonchi. No intercostal retractions. HEART: Regular rate and rhythm. No murmur. ABDOMEN: Soft No tenderness. EXTREMITIES: No pedal edema. No calf tenderness. NEUROLOGICAL: Patient is awake, alert and oriented x3. Assessment: Elevated troponins of unclear significance most likely secondary to a viral ill ness Febrile illness with temperature max 104 Complaints of generalized weakness, fatigue, body aches Right bundle branch block Acute kidney injury Metabolic acidosis secondary to RANDALL Hypokalemia Diabetes mellitus type 2 Hypertension Thrombocytopenia Plan: Home medications on hold Heparin drip discontinued Obtain 2-D echocardiogram and Doppler study to assess cardiac structure and function Further recommendations to follow based upon clinical course At the time of discharge, patient will follow-up in the office with Dr. Nikki Rivas with plan for stress testing in the office once viral symptoms have resolved. Nurse practitioner note has been reviewed, I agree with documented findings and plan of care. Patient was seen and examined. Objective - Vital Signs Vital signs: Vital Signs Temp 98.4 F 05/31/24 04:00 Pulse 81 05/31/24 04:00 Resp 19 05/31/24 08:00 BP 104/65 05/31/24 04:00 Pulse Ox 95 05/31/24 04:00 FiO2 Intake & Output 05/30/24 05/31/24 05/31/24 18:59 06:59 18:59 Intake Total 0 240 Output Total 200 1500 Balance -200 -1500 240 Weight 72.575 kg 62.7 kg Intake: Oral 0 240 Output: Urine 200 1500 Uretheral (Jones) 200 Other: Voiding Method Indwelling Catheter Indwelling Catheter - Labs CBC & Chem 7: 05/31/24 06:48 05/31/24 06:48 Labs: Abnormal Lab Results - Last 24 Hours (Table) 05/30/24 05/30/24 05/30/24 Range/Units 08:37 11:18 11:18 WBC (3.8-10.6) k/uL RBC (4.30-5.90) m/uL Hgb (13.0-17.5) gm/dL Hct (39.0-53.0) % Plt Count (150-450) k/uL APTT 47.6 H (22.0-30.0) sec D-Dimer 5.95 H (<0.60) mg/L FEU Sodium (137-145) mmol/L Carbon Dioxide (22-30) mmol/L BUN 57 H (9-20) mg/dL Creatinine 2.22 H (0.66-1.25) mg/dL Glucose 173 H (74-99) mg/dL POC Glucose (mg/dL) (70-110) mg/dL Plasma Lactic Acid Emmanuel 2.7 H* (0.7-2.0) mmol/L Calcium (8.4-10.2) mg/dL Urine Protein (Negative) Urine Blood (Negative) Ur Leukocyte Esterase (Negative) Urine RBC (0-5) /hpf Urine WBC (0-5) /hpf Urine WBC Clumps (None) /hpf Urine Bacteria (None) /hpf Urine Mucus (None) /hpf 05/30/24 05/30/24 05/30/24 Range/Units 14:54 18:15 19:51 WBC (3.8-10.6) k/uL RBC (4.30-5.90) m/uL Hgb (13.0-17.5) gm/dL Hct (39.0-53.0) % Plt Count (150-450) k/uL APTT (22.0-30.0) sec D-Dimer (<0.60) mg/L FEU Sodium (137-145) mmol/L Carbon Dioxide (22-30) mmol/L BUN (9-20) mg/dL Creatinine (0.66-1.25) mg/dL Glucose (74-99) mg/dL POC Glucose (mg/dL) 116 H (70-110) mg/dL Plasma Lactic Acid Emmanuel 2.7 H* 3.2 H* (0.7-2.0) mmol/L Calcium (8.4-10.2) mg/dL Urine Protein (Negative) Urine Blood (Negative) Ur Leukocyte Esterase (Negative) Urine RBC (0-5) /hpf Urine WBC (0-5) /hpf Urine WBC Clumps (None) /hpf Urine Bacteria (None) /hpf Urine Mucus (None) /hpf 05/30/24 05/30/24 05/30/24 Range/Units 20:00 20:13 21:36 WBC (3.8-10.6) k/uL RBC (4.30-5.90) m/uL Hgb (13.0-17.5) gm/dL Hct (39.0-53.0) % Plt Count (150-450) k/uL APTT (22.0-30.0) sec D-Dimer (<0.60) mg/L FEU Sodium (137-145) mmol/L Carbon Dioxide (22-30) mmol/L BUN (9-20) mg/dL Creatinine (0.66-1.25) mg/dL Glucose (74-99) mg/dL POC Glucose (mg/dL) (70-110) mg/dL Plasma Lactic Acid Emmanuel 2.9 H* <0.5 L (0.7-2.0) mmol/L Calcium (8.4-10.2) mg/dL Urine Protein 2+ H (Negative) Urine Blood Large H (Negative) Ur Leukocyte Esterase Large H (Negative) Urine RBC 12 H (0-5) /hpf Urine WBC >182 H (0-5) /hpf Urine WBC Clumps Occasional H (None) /hpf Urine Bacteria Many H (None) /hpf Urine Mucus Occasional H (None) /hpf 05/31/24 05/31/24 05/31/24 Range/Units 02:40 06:48 06:48 WBC 12.1 H (3.8-10.6) k/uL RBC 3.80 L 3.79 L (4.30-5.90) m/uL Hgb 11.4 L 11.3 L (13.0-17.5) gm/dL Hct 35.1 L 35.4 L (39.0-53.0) % Plt Count 94 L 91 L (150-450) k/uL APTT (22.0-30.0) sec D-Dimer (<0.60) mg/L FEU Sodium 135 L (137-145) mmol/L Carbon Dioxide 19 L (22-30) mmol/L BUN 50 H (9-20) mg/dL Creatinine 1.69 H (0.66-1.25) mg/dL Glucose 126 H (74-99) mg/dL POC Glucose (mg/dL) (70-110) mg/dL Plasma Lactic Acid Emmanuel (0.7-2.0) mmol/L Calcium 7.8 L (8.4-10.2) mg/dL Urine Protein (Negative) Urine Blood (Negative) Ur Leukocyte Esterase (Negative) Urine RBC (0-5) /hpf Urine WBC (0-5) /hpf Urine WBC Clumps (None) /hpf Urine Bacteria (None) /hpf Urine Mucus (None) /hpf 05/31/24 Range/Units 06:53 WBC (3.8-10.6) k/uL RBC (4.30-5.90) m/uL Hgb (13.0-17.5) gm/dL Hct (39.0-53.0) % Plt Count (150-450) k/uL APTT (22.0-30.0) sec D-Dimer (<0.60) mg/L FEU Sodium (137-145) mmol/L Carbon Dioxide (22-30) mmol/L BUN (9-20) mg/dL Creatinine (0.66-1.25) mg/dL Glucose (74-99) mg/dL POC Glucose (mg/dL) 131 H (70-110) mg/dL Plasma Lactic Acid Emmanuel (0.7-2.0) mmol/L Calcium (8.4-10.2) mg/dL Urine Protein (Negative) Urine Blood (Negative) Ur Leukocyte Esterase (Negative) Urine RBC (0-5) /hpf Urine WBC (0-5) /hpf Urine WBC Clumps (None) /hpf Urine Bacteria (None) /hpf Urine Mucus (None) /hpf
[2024-05-31 16:17] LABS: Glucose,Whole Blood 240 mg/dL (70-110)
[2024-05-31 20:06] LABS: Glucose,Whole Blood 140 mg/dL (70-110)
--- NOTE | 2024-05-31 20:15 | CA ---
Transthoracic Echo Report Name: Bart Okeefe Age: 83 Gender: M : 1940 Exam Date: 05/31/2024 10:12 Exam Location: [facility] Ht (in): 69 Wt (lb): 138 Ordering Physician: Neela Tidwell Attending/Referring Phys: [id number], [employer] Specialist Veena Gandhi, EDGARD Procedure CPT: Indications: LVF Cardiac Hx: Technical Quality: Good Contrast 1: Total Dose (mL): Contrast 2: Total Dose (mL): MEASUREMENTS (Male / Female) Normal Values 2D ECHO LV Diastolic Diameter PLAX 4.4 cm 4.2 - 5.9 / 3.9 - 5.3 cm LV Systolic Diameter PLAX 3.7 cm IVS Diastolic Thickness 1.0 cm 0.6 - 1.0 / 0.6 - 0.9 cm LVPW Diastolic Thickness 1.1 cm 0.6 - 1.0 / 0.6 - 0.9 cm LV Relative Wall Thickness 0.5 RV Internal Dim ED PLAX 4.1 cm LA Systolic Diameter LX 3.5 cm 3.0 - 4.0 / 2.7 - 3.8 cm LV Diastolic Volume MOD 4C 101.9 cm??? LV Systolic Volume MOD 4C 55.6 cm??? LV Ejection Fraction MOD 4C 45.5 % LV Cardiac Index MOD 4C 2900.3 cm???/min???m??? LV Diastolic Length 4C 9.3 cm LV Systolic Length 4C 7.9 cm LV Diastolic Volume MOD 2C 103.8 cm??? LV Systolic Volume MOD 2C 60.4 cm??? LV Ejection Fraction MOD 2C 41.8 % LV Cardiac Index MOD 2C 2718.3 cm???/min???m??? LV Diastolic Length 2C 8.9 cm LV Systolic Length 2C 7.9 cm M-MODE Aortic Root Diameter MM 4.1 cm DOPPLER AV Peak Velocity 110.9 cm/s AV Peak Gradient 4.9 mmHg AI Peak Velocity 407.0 cm/s AI Peak Gradient 66.3 mmHg AI Pressure Half Time 496.8 ms Mitral E Point Velocity 72.9 cm/s Mitral A Point Velocity 95.9 cm/s Mitral E to A Ratio 0.8 MV Deceleration Time 193.0 ms MV E' Velocity 4.6 cm/s Mitral E to MV E' Ratio 15.8 TR Peak Velocity 205.7 cm/s TR Peak Gradient 16.9 mmHg Right Ventricular Systolic Press 26.9 mmHg FINDINGS Left Ventricle Left ventricular ejection fraction is estimated at 40-45 %. Left ventricular cavity size normal. Left ventricular wall thickness normal. Mildly reduced global left ventricular systolic function. Right Ventricle Severe right ventricular dilatation. Right ventricular systolic pressure within normal limits. Right Atrium Normal right atrial size. No right atrial thrombus or mass seen. Left Atrium Normal left atrial size. No left atrial thrombus or mass present. Mitral Valve Mitral valve thickened. Mild mitral annular calcification. No evidence for mitral valve prolapse. No mitral stenosis. Mild to moderate mitral regurgitation. Aortic Valve Trileaflet aortic valve. Thickened aortic valve without stenosis. Mild-to- moderate aortic regurgitation. Tricuspid Valve Structurally normal tricuspid valve. Mild tricuspid regurgitation. Pulmonic Valve Structurally normal pulmonic valve. Trace pulmonic regurgitation. Pericardium No pericardial effusion. Aorta Moderate aortic dilatation at the level of the sinuses of valsalva 41 mm CONCLUSIONS Impaired LV function with EF between 40 to 45% Mild to moderate mitral and aortic regurgitation Previewed by: Dr. Kenneth Winston MD (Electronically Signed) Final Date: 31 May 2024 20:15
--- NOTE | 2024-05-31 20:48 | P.GSCN ---
History of Present Illness Consult date: 05/31/24 Reason for Consult: Right hydronephrosis Requesting physician: Jamarcus Payton History of present illness: The patient is an 83-year-old white male admitted yesterday with a 2 to 3-day history of nausea, vomiting, and diarrhea. He is being treated for acute kidney injury secondary to hypovolemia. Renal ultrasound shows evidence of right hydronephrosis. I am consulted for this reason. His PSA level was 4.15 last m onth, and his renal function was normal at that time. Renal ultrasound shows moderate right hydronephrosis as well as a right parapelvic renal cyst. There is no evidence of left hydronephrosis. He is a vague historian. He states that he does not take any BPH medications but does take a supplement. He states that he has been treated for UTIs in the past, but he is unable to provide any specific details regarding this. He denies any prior history of urolithiasis. Review of Systems - Constitutional Reports chills - Gastrointestinal Reports diarrhea, Reports nausea, Reports vomiting - Genitourinary Denies flank pain, Denies hematuria Past Medical History Past Medical History: Diabetes Mellitus, Hypertension Additional Past Medical History / Comment(s): GLAUCOMA, BORDERLINE DIABETIC. change in bowel pattern History of Any Multi-Drug Resistant Organisms: None Reported Past Surgical History: Joint Replacement Additional Past Surgical History / Comment(s): NELA KNEES Past Anesthesia/Blood Transfusion Reactions: No Reported Reaction Past Psychological History: No Psychological Hx Reported Smoking Status: Never smoker - Past Family History Mother Family Medical History: No Reported History Medications and Allergies Home Medications Medication Instructions Recorded Confirmed Type Metoprolol Tartrate [Lopressor] 25 mg PO DAILY 08/15/13 05/30/24 History metFORMIN HCL [Glucophage] 500 mg PO TID 02/26/20 05/30/24 History Brimonidine Tartrate/Timolol 1 drop RIGHT EYE BID 05/30/24 05/30/24 History [Brimonidine-Timolol 0.2%-0.5%] Losartan [Cozaar] 25 mg PO DAILY 05/30/24 05/30/24 History Allergies Allergy/AdvReac Type Severity Reaction Status Date / Time Sulfa (Sulfonamide Allergy Rash/Hives Verified 05/30/24 09:27 Antibiotics) Surgical - Exam Vital Signs Temp Pulse Resp BP Pulse Ox 98.3 F 100 20 108/65 96 05/29/24 19:36 05/29/24 19:36 05/29/24 19:36 05/29/24 19:36 05/29/24 19:36 - General well developed, well nourished, no distress - Respiratory normal respiratory effort - Abdomen Abdomen: soft, non tender, no guarding, no rigid, no rebound - Genitourinary Normal phallus, normal testes. Jones catheter is draining clear yellow urine. - Rectum Rectum: other (Normal anal sphincter tone, no rectal masses. Prostate 30-35 g in size, smooth in consistency.) - Psychiatric oriented to time, oriented to person, oriented to place, speech is normal, memory intact Results - Labs 05/31/24 06:48 05/31/24 06:48 Abnormal Lab Results - Last 24 Hours (Table) 05/30/24 05/30/24 05/30/24 Range/Units 18:15 19:51 20:00 WBC (3.8-10.6) k/uL RBC (4.30-5.90) m/uL Hgb (13.0-17.5) gm/dL Hct (39.0-53.0) % Plt Count (150-450) k/uL Neutrophils # (1.3-7.7) k/uL Lymphocytes # (1.0-4.8) k/uL Sodium (137-145) mmol/L Carbon Dioxide (22-30) mmol/L BUN (9-20) mg/dL Creatinine (0.66-1.25) mg/dL Glucose (74-99) mg/dL POC Glucose (mg/dL) 116 H (70-110) mg/dL Plasma Lactic Acid Emmanuel 3.2 H* (0.7-2.0) mmol/L Calcium (8.4-10.2) mg/dL Urine Protein 2+ H (Negative) Urine Blood Large H (Negative) Ur Leukocyte Esterase Large H (Negative) Urine RBC 12 H (0-5) /hpf Urine WBC >182 H (0-5) /hpf Urine WBC Clumps Occasional H (None) /hpf Urine Bacteria Many H (None) /hpf Urine Mucus Occasional H (None) /hpf 05/30/24 05/30/24 05/31/24 Range/Units 20:13 21:36 02:40 WBC 12.1 H (3.8-10.6) k/uL RBC 3.80 L (4.30-5.90) m/uL Hgb 11.4 L (13.0-17.5) gm/dL Hct 35.1 L (39.0-53.0) % Plt Count 94 L (150-450) k/uL Neutrophils # (1.3-7.7) k/uL Lymphocytes # (1.0-4.8) k/uL Sodium (137-145) mmol/L Carbon Dioxide (22-30) mmol/L BUN (9-20) mg/dL Creatinine (0.66-1.25) mg/dL Glucose (74-99) mg/dL POC Glucose (mg/dL) (70-110) mg/dL Plasma Lactic Acid Emmanuel 2.9 H* <0.5 L (0.7-2.0) mmol/L Calcium (8.4-10.2) mg/dL Urine Protein (Negative) Urine Blood (Negative) Ur Leukocyte Esterase (Negative) Urine RBC (0-5) /hpf Urine WBC (0-5) /hpf Urine WBC Clumps (None) /hpf Urine Bacteria (None) /hpf Urine Mucus (None) /hpf 05/31/24 05/31/24 05/31/24 Range/Units 06:48 06:48 06:53 WBC (3.8-10.6) k/uL RBC 3.79 L (4.30-5.90) m/uL Hgb 11.3 L (13.0-17.5) gm/dL Hct 35.4 L (39.0-53.0) % Plt Count 91 L (150-450) k/uL Neutrophils # 8.8 H (1.3-7.7) k/uL Lymphocytes # 0.3 L (1.0-4.8) k/uL Sodium 135 L (137-145) mmol/L Carbon Dioxide 19 L (22-30) mmol/L BUN 50 H (9-20) mg/dL Creatinine 1.69 H (0.66-1.25) mg/dL Glucose 126 H (74-99) mg/dL POC Glucose (mg/dL) 131 H (70-110) mg/dL Plasma Lactic Acid Emmanuel (0.7-2.0) mmol/L Calcium 7.8 L (8.4-10.2) mg/dL Urine Protein (Negative) Urine Blood (Negative) Ur Leukocyte Esterase (Negative) Urine RBC (0-5) /hpf Urine WBC (0-5) /hpf Urine WBC Clumps (None) /hpf Urine Bacteria (None) /hpf Urine Mucus (None) /hpf 05/31/24 05/31/24 Range/Units 12:17 16:09 WBC (3.8-10.6) k/uL RBC (4.30-5.90) m/uL Hgb (13.0-17.5) gm/dL Hct (39.0-53.0) % Plt Count (150-450) k/uL Neutrophils # (1.3-7.7) k/uL Lymphocytes # (1.0-4.8) k/uL Sodium (137-145) mmol/L Carbon Dioxide (22-30) mmol/L BUN (9-20) mg/dL Creatinine (0.66-1.25) mg/dL Glucose (74-99) mg/dL POC Glucose (mg/dL) 155 H 240 H (70-110) mg/dL Plasma Lactic Acid Emmanuel (0.7-2.0) mmol/L Calcium (8.4-10.2) mg/dL Urine Protein (Negative) Urine Blood (Negative) Ur Leukocyte Esterase (Negative) Urine RBC (0-5) /hpf Urine WBC (0-5) /hpf Urine WBC Clumps (None) /hpf Urine Bacteria (None) /hpf Urine Mucus (None) /hpf Microbiology - Last 24 Hours (Table) 05/30/24 18:02 Blood Culture Gram Stain - Preliminary Blood Blood Culture - Preliminary Molecular ID Diabetes panel 05/31/24 Range/Units 06:48 Sodium 135 L (137-145) mmol/L Potassium 3.7 (3.5-5.1) mmol/L Chloride 107 (98-107) mmol/L Carbon Dioxide 19 L (22-30) mmol/L BUN 50 H (9-20) mg/dL Creatinine 1.69 H (0.66-1.25) mg/dL Glucose 126 H (74-99) mg/dL Calcium 7.8 L (8.4-10.2) mg/dL Calcium panel 05/31/24 Range/Units 06:48 Calcium 7.8 L (8.4-10.2) mg/dL Pituitary panel 05/31/24 Range/Units 06:48 Sodium 135 L (137-145) mmol/L Potassium 3.7 (3.5-5.1) mmol/L Chloride 107 (98-107) mmol/L Carbon Dioxide 19 L (22-30) mmol/L BUN 50 H (9-20) mg/dL Creatinine 1.69 H (0.66-1.25) mg/dL Glucose 126 H (74-99) mg/dL Calcium 7.8 L (8.4-10.2) mg/dL Adrenal panel 05/31/24 Range/Units 06:48 Sodium 135 L (137-145) mmol/L Potassium 3.7 (3.5-5.1) mmol/L Chloride 107 (98-107) mmol/L Carbon Dioxide 19 L (22-30) mmol/L BUN 50 H (9-20) mg/dL Creatinine 1.69 H (0.66-1.25) mg/dL Glucose 126 H (74-99) mg/dL Calcium 7.8 L (8.4-10.2) mg/dL - Imaging US - kidney/bladder: report reviewed Assessment and Plan (1) Unspecified hydronephrosis Current Visit: Yes Status: Acute Code(s): N13.30 - UNSPECIFIED HYDRONEPHROSIS SNOMED Code(s): 50219626 Plan: In summary, Mr. Okeefe has been found to have right hydronephrosis of indeterminate etiology. I reviewed the differential diagnosis with him, and a CT scan will be obtained for further evaluation. Time with Patient: Greater than 30
--- NOTE | 2024-05-31 22:05 | CT ---
EXAMINATION TYPE: CT abdomen pelvis wo con DATE OF EXAM: 05/31/2024 9:52 PM COMPARISON: None. CLINICAL INDICATION: Male, 83 years old with history of Right hydronephsosis; Right hydronephsosis TECHNIQUE: Axial CT abdomen pelvis wo con;Sagittal and coronal reformats were created on a separate workstation. Contrast used: mL of , (none if empty) Oral contrast used: without Oral Contrast (none if empty) CT DLP: 804.6 mGycm, Automated exposure control for dose reduction was used. FINDINGS: LOWER CHEST: Small bilateral pleural effusions with associated atelectasis. Moderate coronary artery calcifications. ABDOMEN LIVER: Unremarkable GALLBLADDER AND BILE DUCTS: Unremarkable. PANCREAS: Unremarkable. SPLEEN: Unremarkable. ADRENAL GLANDS: Unremarkable. KIDNEYS AND URETERS: There is a nonobstructing right renal calculus measuring 4 mm. Proximal right ur eter calculus measuring 7 mm obstructing right collecting system. No left hydronephrosis or calculus. PELVIS BLADDER: Nondistended with Jones catheter in place. REPRODUCTIVE: Prostate is enlarged in size measuring 6.1 cm in transverse dimension. ABDOMEN & PELVIS STOMACH AND BOWEL: No evidence of bowel obstruction. PERITONEUM/RETROPERITONEUM: No evidence of pneumoperitoneum or free fluid. VASCULATURE: No evidence of aortic aneurysm. MUSCULOSKELETAL: No acute osseous abnormalities. Mild disc degeneration changes are present throughou t the thoracolumbar spine. LYMPH NODES: No gross evidence for lymphadenopathy. SOFT TISSUE/ABDOMINAL WALL: Mild anasarca of the soft tissues. IMPRESSION: 1. Mild right hydronephrosis secondary obstructing 7 mm calculus in the proximal ureter. 2. Additional nonobstructing right renal calculus present. 3. Jones catheter in place with circumferential wall thickening andr gas in the bladder lumen correl ate with urinalysis for cystitis. 4. Prostatomegaly, correlate with serum PSA. 5. Mild anasarca with Small bilateral pleural effusions with associated atelectasis. Correlate for c ongestive heart failure/Volume overload. 6. Moderate coronary artery calcifications. [facility], , 05/31/2024 10:02 PM
[2024-06-01 06:11] LABS: Glucose,Whole Blood 123 mg/dL (70-110)
[2024-06-01 09:16] LABS: African American GFR (CKD) 56 (>60 ml/min/1.73 sqM); Anion Gap 9 mmol/L; Blood Urea Nitrogen 40 mg/dL (9-20); Calcium 7.7 mg/dL (8.4-10.2); Carbon Dioxide 21 mmol/L (22-30); Chloride 105 mmol/L (98-107); Glucose 114 mg/dL (74-99); Magnesium 2.2 mg/dL (1.6-2.3); Non-African American GFR(CKD) 48 (>60 ml/min/1.73 sqM); Potassium 3.4 mmol/L (3.5-5.1); Sodium 135 mmol/L (137-145)
--- NOTE | 2024-06-01 10:01 | P.PN ---
Subjective Patient is seen in follow-up for acute kidney injury. Renal function improving. Nonoliguric. On IV fluids. Oral intake fair. Vital signs are stable. General: No acute distress. HEENT: Head exam is unremarkable. On nasal cannula. LUNGS: Rebeca no audible rhonchi or wheezes. HEART: Rate and Rhythm are regular. ABDOMEN: Nontender. EXTREMITITES: No edema. Objective - Vital Signs Vital signs: Vital Signs Temp 98.5 F 06/01/24 08:30 Pulse 93 06/01/24 08:30 Resp 18 06/01/24 08:30 BP 125/70 06/01/24 08:30 Pulse Ox 92 L 06/01/24 08:30 FiO2 Intake & Output 05/31/24 06/01/24 06/01/24 18:59 06:59 18:59 Intake Total 240 Output Total 880 700 Balance -640 -700 Weight 58 kg Intake: Oral 240 Output: Urine 880 700 Other: Voiding Method Indwelling Catheter Indwelling Catheter Indwelling Catheter - Labs CBC & Chem 7: 05/31/24 06:48 06/01/24 07:37 Labs: Abnormal Lab Results - Last 24 Hours (Table) 05/31/24 05/31/24 05/31/24 Range/Units 12:17 16:09 20:04 Sodium (137-145) mmol/L Potassium (3.5-5.1) mmol/L Carbon Dioxide (22-30) mmol/L BUN (9-20) mg/dL Creatinine (0.66-1.25) mg/dL Glucose (74-99) mg/dL POC Glucose (mg/dL) 155 H 240 H 140 H (70-110) mg/dL Calcium (8.4-10.2) mg/dL 06/01/24 06/01/24 Range/Units 06:08 07:37 Sodium 135 L (137-145) mmol/L Potassium 3.4 L (3.5-5.1) mmol/L Carbon Dioxide 21 L (22-30) mmol/L BUN 40 H (9-20) mg/dL Creatinine 1.36 H (0.66-1.25) mg/dL Glucose 114 H (74-99) mg/dL POC Glucose (mg/dL) 123 H (70-110) mg/dL Calcium 7.7 L (8.4-10.2) mg/dL Microbiology - Last 24 Hours (Table) 05/30/24 18:02 Blood Culture Gram Stain - Preliminary Blood Blood Culture - Preliminary Molecular ID Assessment and Plan Plan: Assessment: 1. Acute kidney injury secondary to ATN secondary to hypovolemia further worsened with the use of losartan and also low blood pressures. Baseline creatinine near 1. Creatinine 2.37 on admission and is 1.36 today. 2. Metabolic acidosis secondary to acute kidney injury and IV fluids. On oral bicarb. Better. 3. Hypokalemia from poor intake. Magnesium normal. 4. Diabetes mellitus. 5. Right-sided hydronephrosis. Urology following. CT scan showed obstructing right ureteral calculus. 6. Cardiomyopathy ejection fraction of 40 to 45% with mild to moderate mitral and aortic regurgitation. Plan: Maintain IV fluids. Replace potassium. Continue to hold antihypertensives. Avoid nephrotoxins.
--- NOTE | 2024-06-01 11:04 | P.PN ---
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 He has a past medical history of hypertension, diabetes mellitus type 2. We have been asked to evaluate the patient for NSTEMI. Patient states that he has developed some generalized weakness, generalized bodyaches, and fatigue and in general not feeling well. He felt like he had the flu and also had some nausea and vomiting a little bit of diarrhea. No black stools. He was so weak he had difficulty ambulating and he ended up rolling off his bed onto the floor. He did not have a head injury. Patient denies chest pain, no shortness of breath. Patient has been started on a heparin drip. Patient is seen today in the emergency center waiting for a bed on the cardiac stepdown unit. Blood pressure 100/56, heart rate 90, pulse ox 99% on room air. A stat D-dimer was requested which came back elevated at 5.9 and VQ scan was ordered. Nephrology is on consult as well. Patient has been started on heparin drip. -EKG: Sinus rhythm with right bundle branch block -Chest x-ray: No acute process. -CT of the brain: No acute hemorrhage, hydrocephalus or mass effect. Severely calcified left vertebral artery. -Laboratory studies: WBC 8.3, hemoglobin 12.8, platelet count 135. INR 1.4. Sodium 135, potassium 3.5, BUN 52 creatinine 2.37. Lactic acid initially 6.8 and now 2.9. Troponin 0.879, 0.573, 0.531. AST 105, alkaline phosphatase 160. Cepheid viral panel not detected. -Home cardiac medications: Losartan 25 mg daily, Lopressor 25 mg daily 05/31 Patient seen and examined on the cardiac stepdown unit. Yesterday he underwent a VQ scan which came back low probability for PE. Patient states that he is not feeling better from yesterday. He continues to have general weakness fatigue and bodyaches. He states he may even feel worse from yesterday. He has been started on IV antibiotics. Temperature max 104. Blood pressure 118/66, heart rate 88, pulse ox 94% on 2 L nasal cannula. Repeat blood work reveals WBC 9.4, hemoglobin 11.3, platelet count 91. Sodium 135, potassium 3.7, BUN 50 and creatinine 1.69. Heparin drip has been discontinued. Echocardiogram has been obtained and report is pending. 06/01 Patient seen and examined. Echocardiogram reveals EF 40 to 45% with mild to moderate mitral and aortic regurgitation. Results of the echocardiogram reviewed with the patient and need for outpatient Lexiscan once patient has recovered from his febrile illness. Blood pressure 125/70, heart rate 93, pulse ox 92% on 2 L nasal cannula. Repeat blood work reveals sodium 135, potassium 3.4 and was replaced, BUN [address] of the abdomen pelvis revealed mild right hydronephrosis secondary to a 7 mm calculus, cystitis, prostatomegaly, mild anasarca and small bilateral pleural effusions. Moderate coronary artery calcifications. Physical examination: Gen: This is a 83-year-old male in no acute distress VS: reviewed LUNGS: Clear to auscultation. No wheezes or rhonchi. No intercostal retractions. HEART: Regular rate and rhythm. No murmur. ABDOMEN: Soft No tenderness. EXTREMITIES: No pedal edema. No calf tenderness. Assessment: Elevated troponins of unclear significance most likely secondary to a viral illness Febrile illness with temperature max 104 Complaints of generalized weakness, fatigue, body aches Right bundle branch block Acute kidney injury Metabolic acidosis secondary to RANDALL Hypokalemia Diabetes mellitus type 2 Hypertension Thrombocytopenia Moderate coronary artery calcifications on CT exam Cardiomyopathy of 40 to 45% unknown if ischemic or nonischemic Plan: Home medications on hold Recommend Lexiscan stress test to be done as an outpatient to rule out ischemic heart disease At the time of discharge, patient will follow-up in the office with Dr. Nikki Rivas in 2 weeks. Nurse practitioner note has been reviewed, I agree with documented findings and plan of care. Patient was seen and examined. Objective - Vital Signs Vital signs: Vital Signs Temp 98.5 F 06/01/24 08:30 Pulse 93 06/01/24 08:30 Resp 18 06/01/24 08:30 BP 125/70 06/01/24 08:30 Pulse Ox 92 L 06/01/24 08:30 FiO2 Intake & Output 05/31/24 06/01/24 06/01/24 18:59 06:59 18:59 Intake Total 240 Output Total 880 700 Balance -640 -700 Weight 58 kg Intake: Oral 240 Output: Urine 880 700 Other: Voiding Method Indwelling Catheter Indwelling Catheter Indwelling Catheter - Labs CBC & Chem 7: 05/31/24 06:48 06/01/24 07:37 Labs: Abnormal Lab Results - Last 24 Hours (Table) 05/31/24 05/31/24 05/31/24 Range/Units 12:17 16:09 20:04 Sodium (137-145) mmol/L Potassium (3.5-5.1) mmol/L Carbon Dioxide (22-30) mmol/L BUN (9-20) mg/dL Creatinine (0.66-1.25) mg/dL Glucose (74-99) mg/dL POC Glucose (mg/dL) 155 H 240 H 140 H (70-110) mg/dL Calcium (8.4-10.2) mg/dL 06/01/24 06/01/24 Range/Units 06:08 07:37 Sodium 135 L (137-145) mmol/L Potassium 3.4 L (3.5-5.1) mmol/L Carbon Dioxide 21 L (22-30) mmol/L BUN 40 H (9-20) mg/dL Creatinine 1.36 H (0.66-1.25) mg/dL Glucose 114 H (74-99) mg/dL POC Glucose (mg/dL) 123 H (70-110) mg/dL Calcium 7.7 L (8.4-10.2) mg/dL Microbiology - Last 24 Hours (Table) 05/30/24 18:02 Blood Culture Gram Stain - Preliminary Blood Blood Culture - Preliminary Molecular ID
[2024-06-01 11:51] LABS: Glucose,Whole Blood 315 mg/dL (70-110)
[2024-06-01] MEDS: POTASSIUM CHLORIDE ER 20 MEQ TAB.ER PO STA (12:52)
--- NOTE | 2024-06-01 13:29 | P.PN ---
Subjective Progress Note Date: 06/01/24 Consult was placed for critical care evaluation and hypotension. Patient is a 83-year-old male with past medical history significant for diabetes mellitus, hypertension. PCP is Dr. Walls. Brought in by EMS yesterday evening. Chief complaint of generalized weakness, fever/chills, and nausea without vomiting. Reportedly increased generalized weakness and unable to walk. Rolled out of bed. Workup in the emergency department including a brain CT which did not show any intracranial bleed or mass effect. Serial troponins were elevated and patient was started on IV heparin. Cardiology seen the patient for possible non-ST elevation [place]. Also, D-dimer was elevated at 5.95. Patient suffered for acute kidney injury and unable to undergo CT angio protocol. Did have a VQ scan which showed low scintigraphic evidence for acute PE. Urinalysis appears positive for UTI. Empirically started on IV Rocephin. Has had UTIs in January and again in April of this year. Ultrasound of kidney and bladder showing at least moderate right-sided hydronephrosis. No obvious nephrolithiasis or masses. CBC: WBC count 8.3, hemoglobin 12.8, platelets 135. Mos CMP: Sodium 135, potassium 3.4, chloride 102, serum bicarb 18, BUN 52, creatinine 2.37, glucose 186. LFTs unremarkable. Serial troponins elevated at 0.88, 0.531. EKG: Sinus tachycardia, rate 103 bpm, RBBB pattern. Patient reportedly hypoten sive in the emergency department, and a consult was placed for ICU evaluation. Patient previously received 1.5 L fluid bolus. Blood pressure is currently 100/57 mmHg. Heart rate is nontachycardic. Lactic was previously elevated at 6.8 and is down to 1.9. Patient denies dysuria, hematuria, flank pain. Mild suprapubic discomfort. Denies history of kidney stones. Does have indwelling urinary catheter inserted in the emergency department. Cloudy yellow urine. Was febrile with a Tmax of 104 F. He is receiving IV Rocephin. Does report above-mentioned symptoms, thought he had a "virus". Denies any difficulty in breathing, cough, sputum production, hemoptysis. Rhinorrhea, congestion, sore throat, sinus pressure. Chest x-ray did not show any acute cardiopulmonary process. Viral 4 Plex negative for influenza A/B, RSV, COVID. Denies any chest pain, heart palpitations, lightheadedness or syncopal events, orthopnea, lower extremity edema. Current most recent vital signs: Temperature 98.1 F, heart rate 98 bpm, blood pressure 100/57 mmHg, SpO2 reading 97% on 2 L/min nasal cannula. On 06/01/2024, the patient is being seen for a follow-up. The patient is doing well. No specific complaints. Feeling weak and tired and lethargic. Body aches are still present. Urine culture is positive for gram-negative bacillus and the blood culture is also positive. Awaiting final cultures and sensitivities. Meanwhile, the patient remains on IV Rocephin. Hemodynamically stable. BUN is 40 with a creatinine of 1.36 and a sodium levels at 135 and potassium level is at 3.4. He remains on 2 L of oxygen by nasal cannula with pulse ox of 92%. Meanwhile, the patient was seen by urology regarding the hydronephrosis. CAT scan of the abdomen pelvis was also done and the patient was found to have mild right hydronephrosis secondary to a 7 mm calculus in the proximal ureter. Additional nonobstructive renal calculi in the right was also seen. The patient also has prostatic enlargement. Objective - Vital Signs Vital signs: Vital Signs Temp 98.5 F 06/01/24 08:30 Pulse 93 06/01/24 08:30 Resp 18 06/01/24 08:30 BP 125/70 06/01/24 08:30 Pulse Ox 92 L 06/01/24 08:30 FiO2 Intake & Output 05/31/24 06/01/24 06/01/24 18:59 06:59 18:59 Intake Total 240 Output Total 880 700 Balance -640 -700 Weight 58 kg Intake: Oral 240 Output: Urine 880 700 Other: Voiding Method Indwelling Catheter Indwelling Catheter Indwelling Catheter - Exam GENERAL EXAM: Alert, 83-year-old white male, comfortable in no apparent distress. HEAD: Normocephalic and atraumatic EYES: Normal reaction of pupils, equal size. NOSE: Clear with pink turbinates. THROAT: No erythema or exudates. NECK: No masses, no JVD. CHEST: No chest wall deformity. LUNGS: Equal air entry with no crackles, wheeze, rhonchi or dullness. On 2 L/min nasal cannula. No conversational dyspnea or accessory muscle use.. CVS: S1 and S2 normal with no audible murmur, regular rhythm. No extra heart sounds ABDOMEN: No hepatosplenomegaly, active bowel sounds, no guarding or rigidity. SPINE: No scoliosis or deformity SKIN: No rashes CENTRAL NERVOUS SYSTEM: No focal deficits, tone is normal in all 4 extremities. EXTREMITIES: There is no peripheral edema, clubbing, or cyanosis. Peripheral pulses are intact. - Labs CBC & Chem 7: 05/31/24 06:48 06/01/24 07:37 Labs: Abnormal Lab Results - Last 24 Hours (Table) 05/31/24 05/31/24 05/31/24 Range/Units 12:17 16:09 20:04 Sodium (137-145) mmol/L Potassium (3.5-5.1) mmol/L Carbon Dioxide (22-30) mmol/L BUN (9-20) mg/dL Creatinine (0.66-1.25) mg/dL Glucose (74-99) mg/dL POC Glucose (mg/dL) 155 H 240 H 140 H (70-110) mg/dL Calcium (8.4-10.2) mg/dL 06/01/24 06/01/24 Range/Units 06:08 07:37 Sodium 135 L (137-145) mmol/L Potassium 3.4 L (3.5-5.1) mmol/L Carbon Dioxide 21 L (22-30) mmol/L BUN 40 H (9-20) mg/dL Creatinine 1.36 H (0.66-1.25) mg/dL Glucose 114 H (74-99) mg/dL POC Glucose (mg/dL) 123 H (70-110) mg/dL Calcium 7.7 L (8.4-10.2) mg/dL Microbiology - Last 24 Hours (Table) 05/30/24 18:02 Blood Culture Gram Stain - Preliminary Blood Blood Culture - Preliminary Molecular ID Assessment and Plan Assessment: Urinary tract infection and secondary sepsis. Gram-negative bacillus is present in the blood in the urine. The patient remains on IV Rocephin. Hemodynamically stable. Anion gap metabolic acidosis and lactic acidosis, improved Hypotension, improved with fluid resuscitation, currently normotensive Acute febrile illness, currently afebrile Acute kidney injury, renal bladder ultrasound shows right-sided moderate hydronephrosis. Renal function is improving compared to yesterday. Moderate right-sided hydronephrosis and the patient has a 7 mm right ureteral stone and urology is on the case. Elevated troponins, evaluated by cardiology, felt ACS to be unlikely. Elevated D-dimer, VQ scan showed low scintigraphic evidence for acute PE Diabetes mellitus type 2 History of hypertension Plan: Patient currently on 2 L of oxygen by nasal cannula Patient is septic from a complicated urine tract infection with right ureteral stone and hydronephrosis. Urology is on the case and he may need further in tervention. Continue IV maintenance fluids Continue IV Rocephin Improving renal function Sliding scale insulin coverage Heparin subcu for DVT prophylaxis Will continue to follow. Urology on the case. Nephrology on the case. Time with Patient: Greater than 30
--- NOTE | 2024-06-01 16:09 | P.PN ---
Subjective Progress Note Date: 06/01/24 This is a pleasant 83-year-old male patient of Dr. Walls who comes in initially with a fall at home and generalized weakness. Patient had an abdominal pelvis CT completed which reveals mild right sided hydronephrosis with a 7 m obstructing renal stone. Also evidence of bilateral pleural effusions. Patient has been maintained on IV ceftriaxone. Culture has been positive for E. coli. Patient continues on normal saline at 75 mL/h additionally he is on oral sodium bicarbonate and nephrology is following closely. His labs work today reveals a BUN of 40 creatinine of 1.36. Echocardiogram comes back showing an EF of 40 to 45% with mild to moderate mitral and aortic regurgitation. Review of Systems Constitutional: Denied any fatigue denied any fever. Cardio vascular: denied any chest pain, palpitations Gastrointestinal: denied any nausea, vomiting, diarrhea Pulmonary: Denied any shortness of breath cough Neurologic denied any new focal deficits All inpatient medications were reviewed and appropriate changes in these medications as dictated in the interval history and assessment and plan. PHYSICAL EXAMINATION: GENERAL: The patient is alert and oriented x3, not in any acute distress. Well developed, well nourished. HEENT: Pupils are round and equally reacting to light. EOMI. No scleral icterus. No conjunctival pallor. Normocephalic, atraumatic. No pharyngeal erythema. No thyromegaly. CARDIOVASCULAR: S1 and S2 present. No murmurs, rubs, or gallops. PULMONARY: Chest is clear to auscultation, no wheezing or crackles. ABDOMEN: Soft, nontender, nondistended, normoactive bowel sounds. No palpable organomegaly. MUSCULOSKELETAL: No joint swelling or deformity. EXTREMITIES: No cyanosis, clubbing, or pedal edema. NEUROLOGICAL: Gross neurological examination did not reveal any focal deficits. SKIN: No rashes. Assessment and plan Fall and generalized weakness Obstructive uropathy with a 7 mm obstructing right renal stone Mild right sided hydronephrosis Septic stone UTI with sepsis present on admission E. coli bacteremia Acute kidney injury secondary to obstructive uropathy and sepsis Non-ST elevation [place] troponin elevation could be due to viral illness unable to completely rule out ischemic heart disease Lactic acidosis and anion gap metabolic acidosis Elevated D-Dimer with low probability of PE on VQ scan Diabetes mellitus type 2 Hypertension hx was initially hypotensive and responded to Iv hydration Thrombocytopenia GI prophylaxis DVT prophylaxis Full Code Plan Continue IV ceftriaxone Consult ID for the bacteremia Urology following Pending final urine and blood cultures both revealing gram-negative bacilli Continue oral sodium bicarbonate tablets and nephrology following closely Metformin remains on hold secondary to the kidney dysfunction we will add Lantus and monitor the blood glucose with further recommendations pending Cardiology recommending outpatient stress test and ischemic work up Repeat labs in the AM The impression and plan of care has been dictated by Mayi Snell, Nurse Practitioner as directed. Dr. Sarah MD I have performed a history and physical examination and medical decision making of this patient, discussed the same with the dictator, and agree with the dictators assessment and plan as written, documented as a scribe. Based on total visit time, I have performed more than 50% of this visit. Objective - Vital Signs Vital signs: Vital Signs Temp 98.7 F 06/01/24 16:00 Pulse 94 06/01/24 16:00 Resp 18 06/01/24 16:00 BP 119/65 06/01/24 16:00 Pulse Ox 95 06/01/24 16:00 FiO2 Intake & Output 05/31/24 06/01/24 06/01/24 18:59 06:59 18:59 Intake Total 240 540 Output Total 880 700 Balance -640 -700 540 Weight 58 kg Intake: Oral 240 540 Output: Urine 880 700 Other: Voiding Method Indwelling Catheter Indwelling Catheter Indwelling Catheter - Labs CBC & Chem 7: 05/31/24 06:48 06/01/24 07:37 Labs: Abnormal Lab Results - Last 24 Hours (Table) 05/31/24 05/31/24 06/01/24 Range/Units 16:09 20:04 06:08 Sodium (137-145) mmol/L Potassium (3.5-5.1) mmol/L Carbon Dioxide (22-30) mmol/L BUN (9-20) mg/dL Creatinine (0.66-1.25) mg/dL Glucose (74-99) mg/dL POC Glucose (mg/dL) 240 H 140 H 123 H (70-110) mg/dL Calcium (8.4-10.2) mg/dL 06/01/24 06/01/24 Range/Units 07:37 11:49 Sodium 135 L (137-145) mmol/L Potassium 3.4 L (3.5-5.1) mmol/L Carbon Dioxide 21 L (22-30) mmol/L BUN 40 H (9-20) mg/dL Creatinine 1.36 H (0.66-1.25) mg/dL Glucose 114 H (74-99) mg/dL POC Glucose (mg/dL) 315 H (70-110) mg/dL Calcium 7.7 L (8.4-10.2) mg/dL Microbiology - Last 24 Hours (Table) 05/30/24 18:02 Blood Culture Gram Stain - Preliminary Blood Blood Culture - Preliminary Escherichia coli Molecular ID 05/30/24 20:00 Urine Culture - Preliminary Urine,Voided Gram Neg Bacilli Assessment and Plan Time with Patient: Greater than 30
[2024-06-01 16:38] LABS: Glucose,Whole Blood 141 mg/dL (70-110)
[2024-06-01] MEDS: ASPIRIN 81 MG PO SCH (17:02)
[2024-06-01] MEDS: METOPROLOL SUCCINATE (ER) 25 MG TAB.ER.24H PO SCH (17:03)
[2024-06-01] MEDS: POTASSIUM CHLORIDE ER 20 MEQ TAB.ER PO ONE (17:03)
[2024-06-01 20:27] LABS: Glucose,Whole Blood 221 mg/dL (70-110)
[2024-06-01] MEDS: ATORVASTATIN 40 MG TAB PO SCH (20:53)
[2024-06-01] MEDS: INSULIN GLARGINE (LANTUS) 100 UNIT/ML SYR SQ SCH (20:54)
--- NOTE | 2024-06-01 22:55 | P.CONS ---
History of Present Illness - Reason for Consult Consult date: 06/01/24 Bacteremia Requesting physician: Mayi Snell - Chief Complaint Weakness and nausea vomiting x 1 day on admission - History of Present Illness Patient is a 83-year-old male with a past medical history significant for diabetes mellitus hypertension, presenting to the hospital 2 days ago for evaluation of generalized weakness and flulike symptoms that started the day before presentation to the hospital patient did have a fever of 104 F on 05/30/2024 has been tachycardic but not hypotensive mildly hypoxic on 2 L nasal, oxygen patient did have white count 4.1 on 05/31/2024 BUN and creatinine has been mild elevated trending down 11 symptoms are normal troponins are positive urine positive influenza RSV COVID testing negative patient blood cultures came back positive with an E. coli patient has been treated with ceftriaxone he did have a abdominal pelvis CT with mild right hydronephrosis secondary to 7 mm calculus in the proximal ureter infectious disease was consulted today for further management of antibiotic therapy patient has been complaining of mostly feeling weak and tired no energy patient denies having any headache or URI symptoms no chest pain shortness with occasional cough did have some nausea and vomiting initially seem to have some improved some lower abdominal discomfort he denies any diarrhea or significant urinary symptoms Review of Systems Positive point and negatives has been mentioned in the HPI, complete review of systems was performed and all other systems are negative Past Medical History Past Medical History: Diabetes Mellitus, Hypertension Additional Past Medical History / Comment(s): GLAUCOMA, BORDERLINE DIABETIC. c hange in bowel pattern History of Any Multi-Drug Resistant Organisms: None Reported Past Surgical History: Joint Replacement Additional Past Surgical History / Comment(s): NELA KNEES Past Anesthesia/Blood Transfusion Reactions: No Reported Reaction Past Psychological History: No Psychological Hx Reported Smoking Status: Never smoker - Past Family History Mother Family Medical History: No Reported History Medications and Allergies Home Medications Medication Instructions Recorded Confirmed Type Metoprolol Tartrate [Lopressor] 25 mg PO DAILY 08/15/13 05/30/24 History metFORMIN HCL [Glucophage] 500 mg PO TID 02/26/20 05/30/24 History Brimonidine Tartrate/Timolol 1 drop RIGHT EYE BID 05/30/24 05/30/24 History [Brimonidine-Timolol 0.2%-0.5%] Losartan [Cozaar] 25 mg PO DAILY 05/30/24 05/30/24 History Allergies Allergy/AdvReac Type Severity Reaction Status Date / Time Sulfa (Sulfonamide Allergy Rash/Hives Verified 05/30/24 09:27 Antibiotics) Physical Exam Vitals: Vital Signs Temp Pulse Resp BP Pulse Ox 06/01/24 08:30 98.5 F 93 18 125/70 92 L 06/01/24 08:10 93 18 06/01/24 04:17 98.7 F 87 17 116/57 90 L 05/31/24 23:20 97.5 F L 87 17 113/68 91 L 05/31/24 20:00 98.1 F 89 17 109/63 92 L 05/31/24 18:16 97.8 F 93 18 106/63 94 L 05/31/24 16:00 93 16 106/63 94 L Intake and Output 05/31/24 06/01/24 06/01/24 22:59 06:59 14:59 Intake Total 540 Output Total 480 700 Balance -480 -700 540 Intake: Oral 540 Output: Urine 480 700 Other: Voiding Method Indwelling Catheter Indwelling Catheter Indwelling Catheter Weight 58 kg GENERAL DESCRIPTION: Elderly male lying in bed, no distress. No tachypnea or acc essory muscle of respiration use. HEENT: Shows Pallor , no scleral icterus. Oral mucous membrane is dry. No pharyngeal erythema or thrush NECK: Trachea central, no thyromegaly. LUNGS: Unlabored breathing. Clear to auscultation anteriorly. No wheeze or crackle. HEART: S1, S2, regular rate and rhythm. No loud murmur ABDOMEN: Soft, no tenderness , guarding or rigidity, no organomegaly EXTREMITIES: No edema of feet. SKIN: No rash, no masses palpable. NEUROLOGICAL: The patient is awake, alert, oriented x3, mood and affect normal. Results CBC & Chem 7: 05/31/24 06:48 06/01/24 07:37 Labs: Abnormal Lab Results - Last 24 Hours (Table) 05/31/24 05/31/24 06/01/24 Range/Units 16:09 20:04 06:08 Sodium (137-145) mmol/L Potassium (3.5-5.1) mmol/L Carbon Dioxide (22-30) mmol/L BUN (9-20) mg/dL Creatinine (0.66-1.25) mg/dL Glucose (74-99) mg/dL POC Glucose (mg/dL) 240 H 140 H 123 H (70-110) mg/dL Calcium (8.4-10.2) mg/dL 06/01/24 06/01/24 Range/Units 07:37 11:49 Sodium 135 L (137-145) mmol/L Potassium 3.4 L (3.5-5.1) mmol/L Carbon Dioxide 21 L (22-30) mmol/L BUN 40 H (9-20) mg/dL Creatinine 1.36 H (0.66-1.25) mg/dL Glucose 114 H (74-99) mg/dL POC Glucose (mg/dL) 315 H (70-110) mg/dL Calcium 7.7 L (8.4-10.2) mg/dL Microbiology - Last 24 Hours (Table) 05/30/24 20:00 Urine Culture - Preliminary Urine,Voided Gram Neg Bacilli 05/30/24 18:02 Blood Culture Gram Stain - Preliminary Blood Blood Culture - Preliminary Molecular ID Assessment and Plan (1) E coli bacteremia Current Visit: Yes Status: Acute Code(s): R78.81 - BACTEREMIA; B96.20 - UNSP ESCHERICHIA COLI THE CAUSE OF DISEASES [facility] SNOMED Code(s): 5010 83911553 (2) UTI (urinary tract infection) Current Visit: Yes Status: Acute Code(s): N39.0 - URINARY TRACT INFECTION, SITE NOT SPECIFIED SNOMED Code(s): 71457393 (3) Sepsis Current Visit: Yes Status: Acute Code(s): A41.9 - SEPSIS, UNSPECIFIED ORGANISM SNOMED Code(s): 81424612 Plan: 1patient presented hospital with sepsis in this patient who did have fever tachycardia elevated white count meeting criteria for SIRS/sepsis source is urinary with a complicated UTI has abated evidence of right-sided hydronephrosis with right ureteral stone 2-patient benefit from cystoscopy and ureteral stent placement urology is arash saeed on the case 3-patient was treated with Rocephin 2 g daily while waiting for sensitivity finalize We will follow on clinical condition and cultures to further adjust medication if needed Thank you for this consultation we will follow the patient along with you Dictation was produced using [employer] dictation software. please excuse any grammatical, word or spelling errors. Time with Patient: Greater than 30
[2024-06-02 06:32] LABS: Glucose,Whole Blood 178 mg/dL (70-110)
[2024-06-02 07:00] LABS: African American GFR (CKD) 59 (>60 ml/min/1.73 sqM); Anion Gap 7 mmol/L; Blood Urea Nitrogen 35 mg/dL (9-20); Carbon Dioxide 18 mmol/L (22-30); Chloride 106 mmol/L (98-107); Glucose 162 mg/dL (74-99); Non-African American GFR(CKD) 51 (>60 ml/min/1.73 sqM); Potassium 3.6 mmol/L (3.5-5.1); Sodium 131 mmol/L (137-145)
[2024-06-02 07:02] LABS: Calcium 7.4 mg/dL (8.4-10.2)
[2024-06-02] MEDS ORDERED: LIDOCAINE 1% INJ 10MG/ML (20 ML MDV) ONE (08:19)
[2024-06-02] MEDS ORDERED: PROPOFOL 10 MG/ML 20 ML VIAL IV ONE (08:19)
[2024-06-02] MEDS: IV FLUID CONTINUATION 1,000 ML IV ONE ×2 (08:22→08:44)
--- NOTE | 2024-06-02 09:13 | P.OP ---
Date of Procedure: 06/02/24 Preoperative Diagnosis: Right ureteral calculus Postoperative Diagnosis: Same Procedure(s) Performed: Cystoscopy, right ureteral stent insertion Anesthesia: MAC Surgeon: Sridhar Avila Estimated Blood Loss (ml): 0 IV fluids (ml): 200 Pathology: none sent Condition: stable Disposition: PACU Indications for Procedure: The patient is an 83-year-old white male admitted yesterday with a 2 to 3-day history of nausea, vomiting, and diarrhea. He is being treated for acute kidney injury secondary to hypovolemia. Renal ultrasound shows evidence of right hydronephrosis. I am consulted for this reason. His PSA level was 4.15 last month, and his renal function was normal at that time. Renal ultrasound showed moderate right hydronephrosis as well as a right parapelvic renal cyst. There is no evidence of left hydronephrosis. CT scan was obtained, revealing mild right hydronephrosis due to a 7 mm right proximal ureteral calculus. Preliminary blood culture shows E. coli, and preliminary urine culture shows gram-negative bacilli. It is thus apparent that he has a UTI complicated by an obstructing right proximal ureteral calculus, and he now comes for stent placement. Operative Findings: Successful right ureteral stent placement. A small amount of purulent urine drained from the right renal pelvis. Description of Procedure: The patient was taken to the operating room and placed in the dorsolithotomy position, with legs supported in Antony stirrups. The external genitalia was prepped and draped sterilely. The 30 lens was used to introduce the 22-Beninese Stortz cystoscopic sheath through the urethra and into the bladder under direct vision. The prostatic urethra showed evidence of mild lateral lobe enlargement. The bladder was examined in its entirety. Both ureteral orifices were of normal anatomic location and configuration. No tumors or foreign bodies were seen. A 0.035 inch Glidewire was passed through the cystoscope. The right ureteral orifice was cannulated, and the Glidewire was slowly advanced up to the renal pelvis. A small amount of purulent urine drained alongside the Glidewire. A 26 cm, 6-Beninese double-J ureteral stent was placed over the wire. Proper stent positioning was verified fluoroscopically and endoscopically. The cystoscope was removed, and a Jones catheter was replaced into the bladder. The patient tolerated the procedure well and was taken to the recovery room in stable condition.
--- NOTE | 2024-06-02 09:22 | FL ---
EXAMINATION TYPE: FL guidance operating room Intraoperative/procedural fluoroscopic services were pro vided. CLINICAL INDICATION:Male, 83 years old with history of RIGHT URETERAL STENT INSERTION; , [facility] FINDINGS: Fluoroscopic images demonstrating right ureteral stent insertion. No radiographic evidence for compli cation. Total fluoroscopy time is 10.5 seconds. DAP: 0.8153 Gycm2 Please see the operative/procedural note for further details. [facility], , 06/02/2024 9:20 AM
[2024-06-02 11:21] LABS: Glucose,Whole Blood 214 mg/dL (70-110)
--- NOTE | 2024-06-02 11:33 | P.PN ---
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 He has a past medical history of hypertension, diabetes mellitus type 2. We have been asked to evaluate the patient for NSTEMI. Patient states that he has developed some generalized weakness, generalized bodyaches, and fatigue and in general not feeling well. He felt like he had the flu and also had some nausea and vomiting a little bit of diarrhea. No black stools. He was so weak he had difficulty ambulating and he ended up rolling off his bed onto the floor. He did not have a head injury. Patient denies chest pain, no shortness of breath. Patient has been started on a heparin drip. Patient is seen today in the emergency center waiting for a bed on the cardiac stepdown unit. Blood pressure 100/56, heart rate 90, pulse ox 99% on room air. A stat D-dimer was requested which came back elevated at 5.9 and VQ scan was ordered. Nephrology is on consult as well. Patient has been started on heparin drip. -EKG: Sinus rhythm with right bundle branch block -Chest x-ray: No acute process. -CT of the brain: No acute hemorrhage, hydrocephalus or mass effect. Severely calcified left vertebral artery. -Laboratory studies: WBC 8.3, hemoglobin 12.8, platelet count 135. INR 1.4. Sodium 135, potassium 3.5, BUN 52 creatinine 2.37. Lactic acid initially 6.8 and now 2.9. Troponin 0.879, 0.573, 0.531. AST 105, alkaline phosphatase 160. Cepheid viral panel not detected. -Home cardiac medications: Losartan 25 mg daily, Lopressor 25 mg daily 05/31 Patient seen and examined on the cardiac stepdown unit. Yesterday he underwent a VQ scan which came back low probability for PE. Patient states that he is not feeling better from yesterday. He continues to have general weakness fatigue and bodyaches. He states he may even feel worse from yesterday. He has been started on IV antibiotics. Temperature max 104. Blood pressure 118/66, heart rate 88, pulse ox 94% on 2 L nasal cannula. Repeat blood work reveals WBC 9.4, hemoglobin 11.3, platelet count 91. Sodium 135, potassium 3.7, BUN 50 and creatinine 1.69. Heparin drip has been discontinued. Echocardiogram has been obtained and report is pending. 06/01 Patient seen and examined. Echocardiogram reveals EF 40 to 45% with mild to moderate mitral and aortic regurgitation. Results of the echocardiogram reviewed with the patient and need for outpatient Lexiscan once patient has recovered from his febrile illness. Blood pressure 125/70, heart rate 93, pulse ox 92% on 2 L nasal cannula. Repeat blood work reveals sodium 135, potassium 3.4 and was replaced, BUN [address] of the abdomen pelvis revealed mild right hydronephrosis secondary to a 7 mm calculus, cystitis, prostatomegaly, mild anasarca and small bilateral pleural effusions. Moderate coronary artery calcifications. 06/02 Patient seen and examined. Patient denies having chest pain or chest pressure. He states that the body aches and fevers are much improved. Blood pressure 98/58, heart rate 79, pulse ox 93% on 2 L nasal cannula. Repeat blood work reveals BUN 35 creatinine 1.31. Today, patient underwent cystoscopy and right ureteral stent insertion for right ureteral calculus. Physical examination: Gen: This is a 83-year-old male in no acute distress VS: reviewed LUNGS: Clear to auscultation. No wheezes or rhonchi. No intercostal retractions. HEART: Regular rate and rhythm. No murmur. ABDOMEN: Soft No tenderness. EXTREMITIES: No pedal edema. No calf tenderness. 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 Nikki Rivas in 2 weeks. Nurse practitioner note has been reviewed, I agree with documented findings and plan of care. Patient was seen and examined. Objective - Vital Signs Vital signs: Vital Signs Temp 97.7 F 06/02/24 09:35 Pulse 79 06/02/24 09:22 Resp 21 06/02/24 09:35 BP 98/58 06/02/24 09:35 Pulse Ox 96 06/02/24 09:22 FiO2 Intake & Output 06/01/24 06/02/24 06/02/24 18:59 06:59 18:59 Intake Total 1550 200 Output Total 950 775 300 Balance 600 -775 -100 Weight 58.5 kg 58.5 kg Intake: IV 200 Intake, IV Titration 50 Amount cefTRIAXone 2 gm In 50 Sodium Chloride 0.9% 50 ml @ 100 mls/hr IVPB Q24HR [facility] Rx#:[id number] Oral 1500 Output: Urine 950 775 300 Estimated Blood Loss 0 Other: Voiding Method Indwelling Catheter Indwelling Catheter Indwelling Catheter - Labs CBC & Chem 7: 05/31/24 06:48 06/02/24 06:15 Labs: Abnormal Lab Results - Last 24 Hours (Table) 06/01/24 06/01/24 06/01/24 Range/Units 11:49 16:37 20:26 Sodium (137-145) mmol/L Carbon Dioxide (22-30) mmol/L BUN (9-20) mg/dL Creatinine (0.66-1.25) mg/dL Glucose (74-99) mg/dL POC Glucose (mg/dL) 315 H 141 H 221 H (70-110) mg/dL Calcium (8.4-10.2) mg/dL 06/02/24 06/02/24 Range/Units 06:15 06:30 Sodium 131 L (137-145) mmol/L Carbon Dioxide 18 L (22-30) mmol/L BUN 35 H (9-20) mg/dL Creatinine 1.31 H (0.66-1.25) mg/dL Glucose 162 H (74-99) mg/dL POC Glucose (mg/dL) 178 H (70-110) mg/dL Calcium 7.4 L (8.4-10.2) mg/dL Microbiology - Last 24 Hours (Table) 05/30/24 18:02 Blood Culture Gram Stain - Final Blood Blood Culture - Final Escherichia coli Molecular ID 05/30/24 20:00 Urine Culture - Preliminary Urine,Voided Gram Neg Bacilli
--- NOTE | 2024-06-02 13:28 | P.PN ---
Subjective Progress Note Date: 06/02/24 Consult was placed for critical care evaluation and hypotension. Patient is a 83-year-old male with past medical history significant for diabetes mellitus, hypertension. PCP is Dr. Walls. Brought in by EMS yesterday evening. Chief complaint of generalized weakness, fever/chills, and nausea without vomiting. Reportedly increased generalized weakness and unable to walk. Rolled out of bed. Workup in the emergency department including a brain CT which did not show any intracranial bleed or mass effect. Serial troponins were elevated and patient was started on IV heparin. Cardiology seen the patient for possible non-ST elevation [place]. Also, D-dimer was elevated at 5.95. Patient suffered for acute kidney injury and unable to undergo CT angio protocol. Did have a VQ scan which showed low scintigraphic evidence for acute PE. Urinalysis appears positive for UTI. Empirically started on IV Rocephin. Has had UTIs in January and again in April of this year. Ultrasound of kidney and bladder showing at least moderate right-sided hydronephrosis. No obvious nephrolithiasis or masses. CBC: WBC count 8.3, hemoglobin 12.8, platelets 135. Mos CMP: Sodium 135, potassium 3.4, chloride 102, serum bicarb 18, BUN 52, creatinine 2.37, glucose 186. LFTs unremarkable. Serial troponins elevated at 0.88, 0.531. EKG: Sinus tachycardia, rate 103 bpm, RBBB pattern. Patient reportedly hypoten sive in the emergency department, and a consult was placed for ICU evaluation. Patient previously received 1.5 L fluid bolus. Blood pressure is currently 100/57 mmHg. Heart rate is nontachycardic. Lactic was previously elevated at 6.8 and is down to 1.9. Patient denies dysuria, hematuria, flank pain. Mild suprapubic discomfort. Denies history of kidney stones. Does have indwelling urinary catheter inserted in the emergency department. Cloudy yellow urine. Was febrile with a Tmax of 104 F. He is receiving IV Rocephin. Does report above-mentioned symptoms, thought he had a "virus". Denies any difficulty in breathing, cough, sputum production, hemoptysis. Rhinorrhea, congestion, sore throat, sinus pressure. Chest x-ray did not show any acute cardiopulmonary process. Viral 4 Plex negative for influenza A/B, RSV, COVID. Denies any chest pain, heart palpitations, lightheadedness or syncopal events, orthopnea, lower extremity edema. Current most recent vital signs: Temperature 98.1 F, heart rate 98 bpm, blood pressure 100/57 mmHg, SpO2 reading 97% on 2 L/min nasal cannula. On 06/01/2024, the patient is being seen for a follow-up. The patient is doing well. No specific complaints. Feeling weak and tired and lethargic. Body aches are still present. Urine culture is positive for gram-negative bacillus and the blood culture is also positive. Awaiting final cultures and sensitivities. Meanwhile, the patient remains on IV Rocephin. Hemodynamically stable. BUN is 40 with a creatinine of 1.36 and a sodium levels at 135 and potassium level is at 3.4. He remains on 2 L of oxygen by nasal cannula with pulse ox of 92%. Meanwhile, the patient was seen by urology regarding the hydronephrosis. CAT scan of the abdomen pelvis was also done and the patient was found to have mild right hydronephrosis secondary to a 7 mm calculus in the proximal ureter. Additional nonobstructive renal calculi in the right was also seen. The patient also has prostatic enlargement. On 06/02/2024, the patient is doing well. The patient underwent a cystoscopy today with a right ureteral stent insertion. This was done successfully and the patient is currently back on the floor. Doing extremely well. He is known to have E. coli septicemia secondary underlying urine tract infection the patient remains on IV Rocephin. Creatinine is at 1.3 with a BUN of 35 and a sodium lev els at 131. Hemodynamically stable. Afebrile. Currently on 2 L of oxygen by nasal cannula with a pulse ox of 93%. Awake and alert and communicating and family at the bedside. Objective - Vital Signs Vital signs: Vital Signs Temp 97.7 F 06/02/24 09:35 Pulse 79 06/02/24 09:22 Resp 21 06/02/24 09:35 BP 98/58 06/02/24 09:35 Pulse Ox 96 06/02/24 09:22 FiO2 Intake & Output 06/01/24 06/02/24 06/02/24 18:59 06:59 18:59 Intake Total 1550 200 Output Total 950 775 300 Balance 600 -775 -100 Weight 58.5 kg 58.5 kg Intake: IV 200 Intake, IV Titration 50 Amount cefTRIAXone 2 gm In 50 Sodium Chloride 0.9% 50 ml @ 100 mls/hr IVPB Q24HR [facility] Rx#:[id number] Oral 1500 Output: Urine 950 775 300 Estimated Blood Loss 0 Other: Voiding Method Indwelling Catheter Indwelling Catheter - Exam GENERAL EXAM: Alert, 83-year-old white male, comfortable in no apparent distress. HEAD: Normocephalic and atraumatic EYES: Normal reaction of pupils, equal size. NOSE: Clear with pink turbinates. THROAT: No erythema or exudates. NECK: No masses, no JVD. CHEST: No chest wall deformity. LUNGS: Equal air entry with no crackles, wheeze, rhonchi or dullness. On 2 L/min nasal cannula. No conversational dyspnea or accessory muscle use.. CVS: S1 and S2 normal with no audible murmur, regular rhythm. No extra heart sounds ABDOMEN: No hepatosplenomegaly, active bowel sounds, no guarding or rigidity. SPINE: No scoliosis or deformity SKIN: No rashes CENTRAL NERVOUS SYSTEM: No focal deficits, tone is normal in all 4 extremities. EXTREMITIES: There is no peripheral edema, clubbing, or cyanosis. Peripheral pulses are intact. - Labs CBC & Chem 7: 05/31/24 06:48 06/02/24 06:15 Labs: Abnormal Lab Results - Last 24 Hours (Table) 06/01/24 06/01/24 06/01/24 Range/Units 11:49 16:37 20:26 Sodium (137-145) mmol/L Carbon Dioxide (22-30) mmol/L BUN (9-20) mg/dL Creatinine (0.66-1.25) mg/dL Glucose (74-99) mg/dL POC Glucose (mg/dL) 315 H 141 H 221 H (70-110) mg/dL Calcium (8.4-10.2) mg/dL 06/02/24 06/02/24 Range/Units 06:15 06:30 Sodium 131 L (137-145) mmol/L Carbon Dioxide 18 L (22-30) mmol/L BUN 35 H (9-20) mg/dL Creatinine 1.31 H (0.66-1.25) mg/dL Glucose 162 H (74-99) mg/dL POC Glucose (mg/dL) 178 H (70-110) mg/dL Calcium 7.4 L (8.4-10.2) mg/dL Microbiology - Last 24 Hours (Table) 05/30/24 18:02 Blood Culture Gram Stain - Final Blood Blood Culture - Final Escherichia coli Molecular ID 05/30/24 20:00 Urine Culture - Preliminary Urine,Voided Gram Neg Bacilli Assessment and Plan Assessment: Urinary tract infection and secondary sepsis. Gram-negative bacillus is present in the blood in the urine. The patient remains on IV Rocephin. Hemodynamically stable. The patient is status post cystoscopy and insertion of a right urinary stent. Postop day #0. Anion gap metabolic acidosis and lactic acidosis, improved Hypotension, improved with fluid resuscitation, currently normotensive Acute febrile illness, currently afebrile Acute kidney injury, renal bladder ultrasound shows right-sided moderate hydronephrosis secondary to a 7 mm right ureteral stone with secondary hydronephrosis. Patient is post insertion of a ureteral stent on the right. Moderate right-sided hydronephrosis and the patient has a 7 mm right ureteral stone and urology is on the case. The patient is status post cystoscopy and insertion of a right ureteral stent Elevated troponins, evaluated by cardiology, felt ACS to be unlikely. Elevated D-dimer, VQ scan showed low scintigraphic evidence for acute PE Diabetes mellitus type 2 History of hypertension Plan: Patient currently on 3 L of oxygen by nasal cannula Patient is septic from a complicated urine tract infection with right ureteral stone and hydronephrosis. Cystoscopy and ureteral stent was completed Continue IV maintenance fluids Continue IV Rocephin Improving renal function Sliding scale insulin coverage Heparin subcu for DVT prophylaxis Urology and nephrology on the case. Anticipate further recovery.
--- NOTE | 2024-06-02 14:22 | P.PN ---
Subjective Progress Note Date: 06/02/24 This is a pleasant 83-year-old male patient of Dr. Walls who comes in initially with a fall at home and generalized weakness. Patient had an abdominal pelvis CT completed which reveals mild right sided hydronephrosis with a 7 m obstructing renal stone. Also evidence of bilateral pleural effusions. Patient has been maintained on IV ceftriaxone. Culture has been positive for E. coli. Patient continues on normal saline at 75 mL/h additionally he is on oral sodium bicarbonate and nephrology is following closely. His labs work today reveals a BUN of 40 creatinine of 1.36. Echocardiogram comes back showing an EF of 40 to 45% with mild to moderate mitral and aortic regurgitation. 06/02/2024 Patient is eval today in follow-up on the medical floor family at the bedside. Patient underwent cystoscopy and right ureteral stent placement today with Dr. Purcell. Remains on normal saline at 75 mL/h. Sodium level today is 131 potassium 3.6, BUN of 35 creatinine of 1.31. Blood glucose elevated in the 200s and patient reinforcement metformin is currently on hold and Lantus will be increased. Has been afebrile. Review of Systems Constitutional: Denied any fatigue denied any fever. Cardio vascular: denied any chest pain, palpitations Gastrointestinal: denied any nausea, vomiting, diarrhea Pulmonary: Denied any shortness of breath cough Neurologic denied any new focal deficits All inpatient medications were reviewed and appropriate changes in these medications as dictated in the interval history and assessment and plan. PHYSICAL EXAMINATION: GENERAL: The patient is alert and oriented x3, not in any acute distress. Well developed, well nourished. HEENT: Pupils are round and equally reacting to light. EOMI. No scleral icterus. No conjunctival pallor. Normocephalic, atraumatic. No pharyngeal erythema. No thyromegaly. CARDIOVASCULAR: S1 and S2 present. No murmurs, rubs, or gallops. PULMONARY: Chest is clear to auscultation, no wheezing or crackles. ABDOMEN: Soft, nontender, nondistended, normoactive bowel sounds. No palpable organomegaly. MUSCULOSKELETAL: No joint swelling or deformity. EXTREMITIES: No cyanosis, clubbing, or pedal edema. NEUROLOGICAL: Gross neurological examination did not reveal any focal deficits. SKIN: No rashes. Assessment and plan Fall and generalized weakness Obstructive uropathy with a 7 mm obstructing right renal stone status post right ureteral stent Mild right sided hydronephrosis Septic stone UTI with sepsis present on admission E. coli bacteremia Acute kidney injury secondary to obstructive uropathy and sepsis Non-ST elevation [place] troponin elevation could be due to viral illness unable to completely rule out ischemic heart disease Lactic acidosis and anion gap metabolic acidosis Elevated D-Dimer with low probability of PE on VQ scan Diabetes mellitus type 2 Hypertension hx was initially hypotensive and responded to Iv hydration Thrombocytopenia GI prophylaxis DVT prophylaxis Full Code Plan Patient is status post right ureteral stent placement and urology is following Continue IV ceftriaxone Consult ID for the bacteremia Urology following Pending final urine and blood cultures both revealing gram-negative bacilli Continue oral sodium bicarbonate tablets and nephrology following closely Metformin remains on hold secondary to the kidney dysfunction we will add Lantus and monitor the blood glucose with further recommendations pending Cardiology recommending outpatient stress test and ischemic work up Repeat labs in the AM The impression and plan of care has been dictated by Mayi Snell, Nurse Practitioner as directed. Dr. Sarah MD I have performed a history and physical examination and medical decision making of this patient, discussed the same with the dictator, and agree with the dictators assessment and plan as written, documented as a scribe. Based on total visit time, I have performed more than 50% of this visit. Objective - Vital Signs Vital signs: Vital Signs Temp 100.0 F H 06/02/24 05:00 Pulse 94 06/02/24 03:20 Resp 17 06/02/24 03:20 BP 131/71 06/02/24 03:20 Pulse Ox 94 L 06/02/24 00:03 FiO2 Intake & Output 06/01/24 06/02/24 06/02/24 18:59 06:59 18:59 Intake Total 1550 200 Output Total 950 775 0 Balance 600 -775 200 Weight 58.5 kg Intake: IV 200 Intake, IV Titration 50 Amount cefTRIAXone 2 gm In 50 Sodium Chloride 0.9% 50 ml @ 100 mls/hr IVPB Q24HR [facility] Rx#:[id number] Oral 1500 Output: Urine 950 775 Estimated Blood Loss 0 Other: Voiding Method Indwelling Catheter Indwelling Catheter - Labs CBC & Chem 7: 05/31/24 06:48 06/02/24 06:15 Labs: Abnormal Lab Results - Last 24 Hours (Table) 06/01/24 06/01/2406/01/25 Range/Units 07:37 11:49 16:37 Sodium 135 L (137-145) mmol/L Potassium 3.4 L (3.5-5.1) mmol/L Carbon Dioxide 21 L (22-30) mmol/L BUN 40 H (9-20) mg/dL Creatinine 1.36 H (0.66-1.25) mg/dL Glucose 114 H (74-99) mg/dL POC Glucose (mg/dL) 315 H 141 H (70-110) mg/dL Calcium 7.7 L (8.4-10.2) mg/dL 06/01/24 06/02/24 06/02/24 Range/Units 20:26 06:15 06:30 Sodium 131 L (137-145) mmol/L Potassium (3.5-5.1) mmol/L Carbon Dioxide 18 L (22-30) mmol/L BUN 35 H (9-20) mg/dL Creatinine 1.31 H (0.66-1.25) mg/dL Glucose 162 H (74-99) mg/dL POC Glucose (mg/dL) 221 H 178 H (70-110) mg/dL Calcium 7.4 L (8.4-10.2) mg/dL Microbiology - Last 24 Hours (Table) 05/30/24 18:02 Blood Culture Gram Stain - Preliminary Blood Blood Culture - Preliminary Escherichia coli Molecular ID 05/30/24 20:00 Urine Culture - Preliminary Urine,Voided Gram Neg Bacilli Assessment and Plan Time with Patient: Less than 30
--- NOTE | 2024-06-02 15:51 | P.PN ---
Subjective Progress Note Date: 06/02/24 Principal diagnosis: Reason for follow-up is complicated UTI and bacteremia Patient is a 83-year-old male with a past medical history significant for diabetes mellitus hypertension, presenting to the hospital for evaluation of generalized weakness flulike symptoms has been diagnosed with a complicated UTI and also have E. coli bacteremia patient is status post cystoscopy and right ureteral stent placement on 06/02/2024. Today's evaluation that is 06/02/2024, Patient did have a temperature of 101.2 F at 4 AM the patient is afebrile since then patient is currently breathing comfortably on 3 L current oxygen Sleepy in no distress no vomiting diarrhea and the changes reported. Patient did have a creatinine 1.3 110 no CBC was done today blood and urine with a gram-negative Objective - Vital Signs Vital signs: Vital Signs Temp 97.7 F 06/02/24 11:50 Pulse 76 06/02/24 14:00 Resp 22 06/02/24 14:00 BP 94/55 06/02/24 12:36 Pulse Ox 93 L 06/02/24 12:36 FiO2 Intake & Output 06/01/24 06/02/24 06/02/24 18:59 06:59 18:59 Intake Total 1550 200 Output Total 950 775 300 Balance 600 -775 -100 Weight 58.5 kg 58.5 kg Intake: IV 200 Intake, IV Titration 50 Amount cefTRIAXone 2 gm In 50 Sodium Chloride 0.9% 50 ml @ 100 mls/hr IVPB Q24HR [facility] Rx#:[id number] Oral 1500 0 Output: Urine 950 775 300 Estimated Blood Loss 0 Other: Voiding Method Indwelling Catheter Indwelling Catheter Indwelling Catheter - Exam GENERAL DESCRIPTION: An elderly male lying in bed in no distress RESPIRATORY SYSTEM: Unlabored breathing , decreased breath sounds at bases HEART: S1 S2 regular rate and rhythm , ABDOMEN: Soft , no tenderness EXTREMITIES: No edema feet - Labs CBC & Chem 7: 05/31/24 06:48 06/02/24 06:15 Labs: Abnormal Lab Results - Last 24 Hours (Table) 06/01/24 06/01/24 06/02/24 Range/Units 16:37 20:26 06:15 Sodium 131 L (137-145) mmol/L Carbon Dioxide 18 L (22-30) mmol/L BUN 35 H (9-20) mg/dL Creatinine 1.31 H (0.66-1.25) mg/dL Glucose 162 H (74-99) mg/dL POC Glucose (mg/dL) 141 H 221 H (70-110) mg/dL Calcium 7.4 L (8.4-10.2) mg/dL 06/02/24 06/02/24 Range/Units 06:30 11:16 Sodium (137-145) mmol/L Carbon Dioxide (22-30) mmol/L BUN (9-20) mg/dL Creatinine (0.66-1.25) mg/dL Glucose (74-99) mg/dL POC Glucose (mg/dL) 178 H 214 H (70-110) mg/dL Calcium (8.4-10.2) mg/dL Microbiology - Last 24 Hours (Table) 05/30/24 18:02 Blood Culture Gram Stain - Final Blood Blood Culture - Final Escherichia coli Molecular ID Assessment and Plan (1) E coli bacteremia Current Visit: Yes Status: Acute Code(s): R78.81 - BACTEREMIA; B96.20 - UNSP ESCHERICHIA COLI THE CAUSE OF DISEASES CLASSD [facility] SNOMED Code(s): 518318692681 (2) UTI (urinary tract infection) Current Visit: Yes Status: Acute Code(s): N39.0 - URINARY TRACT INFECTION, SITE NOT SPECIFIED SNOMED Code(s): 21332865 (3) Sepsis Current Visit: Yes Status: Acute Code(s): A41.9 - SEPSIS, UNSPECIFIED ORGANISM SNOMED Code(s): 18167659 Plan: 1patient presented hospital with sepsis in this patient who did have fever tachycardia elevated white count meeting criteria for SIRS/sepsis source is urinary with a complicated UTI has abated evidence of right-sided hydronephrosis with right ureteral stone 2-patient is status post cystoscopy and ureteral stent placement completed on 06/02/2024 3-patient will be treated Rocephin 2 g daily while waiting for sensitivity finalize and monitor clinical course closely Dictation was produced using [employer] dictation software. please excuse any grammatical, word or spelling errors. Time with Patient: Less than 30
[2024-06-02 16:13] LABS: Glucose,Whole Blood 148 mg/dL (70-110)
[2024-06-02 20:48] LABS: Glucose,Whole Blood 229 mg/dL (70-110)
[2024-06-02] MEDS: INSULIN GLARGINE (LANTUS) 100 UNIT/ML SYR SQ SCH (21:00)
[2024-06-03 06:00] LABS: Glucose,Whole Blood 116 mg/dL (70-110)
[2024-06-03 06:04] LABS: Basophils % (A) 0 %; Eosinophils % (A) 0 %; HCT 37.2 % (39.0-53.0); Lymphocytes # (A) 0.5 k/uL (1.0-4.8); Lymphocytes % (A) 6 %; MCH 29.8 pg (25.0-35.0); MCHC 32.3 g/dL (31.0-37.0); MCV 92.4 fL (80.0-100.0); Mean Platelet Volume 10.5; Monocytes # (A) 0.5 k/uL (0-1.0); Monocytes % (A) 7 %; Neutrophils # (A) 6.2 k/uL (1.3-7.7); Neutrophils % (A) 82 %; RBC 4.03 m/uL (4.30-5.90); RDW 14.1 % (11.5-15.5); WBC 7.5 k/uL (3.8-10.6)
[2024-06-03 06:06] LABS: Platelet Count 67 k/uL (150-450)
[2024-06-03 06:22] LABS: African American GFR (CKD) 76 (>60 ml/min/1.73 sqM); Anion Gap 8 mmol/L; Blood Urea Nitrogen 34 mg/dL (9-20); Calcium 7.3 mg/dL (8.4-10.2); Carbon Dioxide 20 mmol/L (22-30); Chloride 106 mmol/L (98-107); Glucose 126 mg/dL (74-99); Non-African American GFR(CKD) 66 (>60 ml/min/1.73 sqM); Potassium 3.3 mmol/L (3.5-5.1); Sodium 134 mmol/L (137-145)
--- NOTE | 2024-06-03 07:32 | XR ---
EXAMINATION TYPE: XR chest 2V DATE OF EXAM: 06/03/2024 7:13 AM COMPARISON: Chest radiographs from 05/29/2024 CLINICAL INDICATION: Male, 83 years old with history of hypoxia; [facility] TECHNIQUE: XR chest 2V Frontal and lateral views of the chest. FINDINGS: Lungs/Pleura: Airspace opacities projecting over the spine with possible superimposed pleural effusio ns. Pulmonary vascularity: Unremarkable. Heart/mediastinum: Cardiomediastinal silhouette is unremarkable. Musculoskeletal: No acute osseous pathology. IMPRESSION: Airspace opacities projecting over the spine correlate for pneumonia. Superimposed pleural effusions posteriorly not excluded. [facility], , 06/03/2024 7:30 AM
[2024-06-03 11:21] LABS: Glucose,Whole Blood 177 mg/dL (70-110)
--- NOTE | 2024-06-03 14:18 | P.PN ---
Subjective Patient is seen for follow-up for acute kidney injury. Renal function has improved. Serum creatinine down to 1.0 No significant complaints Maintained on normal saline at 75 cc an hour. Objective - Vital Signs Vital signs: Vital Signs Temp 97.5 F L 06/03/24 12:03 Pulse 99 06/03/24 12:03 Resp 14 06/03/24 12:03 BP 126/68 06/03/24 12:03 Pulse Ox 96 06/03/24 12:03 FiO2 Intake & Output 06/02/24 06/03/24 06/03/24 18:59 06:59 18:59 Intake Total 200 Output Total 660 700 500 Balance -460 -700 -500 Weight 58.5 kg 58.4 kg Intake: IV 200 Oral 0 Output: Urine 660 700 500 Estimated Blood Loss 0 Other: Voiding Method Indwelling Catheter Indwelling Catheter - Exam Patient is awake, comfortable, no acute distress Examination of the heart S1 and S2 Examination of the lungs bilateral breath sounds are heard Abdomen is soft nontender Examination of lower extremities shows no significant edema 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0-17.5) gm/dL Hct (39.0-53.0) % Plt Count (150-450) k/uL Lymphocytes # (1.0-4.8) k/uL Sodium 134 L (137-145) mmol/L Potassium 3.3 L (3.5-5.1) mmol/L Carbon Dioxide 20 L (22-30) mmol/L BUN 34 H (9-20) mg/dL Glucose 126 H (74-99) mg/dL POC Glucose (mg/dL) 116 H 177 H (70-110) mg/dL Calcium 7.3 L (8.4-10.2) mg/dL Microbiology - Last 24 Hours (Table) 05/30/24 20:00 Urine Culture - Final Urine,Voided Escherichia coli Assessment and Plan Assessment: 1. Acute kidney injury secondary to ATN secondary to hypovolemia further worsened with the use of losartan and also low blood pressures. Baseline creatinine near 1. Creatinine 2.37 on admission and is 1.0 today. 2. Metabolic acidosis secondary to acute kidney injury and IV fluids. On oral bicarb. Better. 3. Hypokalemia from poor intake. Magnesium normal. 4. Diabetes mellitus. 5. Right-sided hydronephrosis. Urology following. CT scan showed obstructing right ureteral calculus. Status post cystoscopy and right ureteral stent insertion on 06/02/2024 6. Cardiomyopathy ejection fraction of 40 to 45% with mild to moderate mitral and aortic regurgitation. Plan: Continue with IV fluids Repeat labs in a.m.
[2024-06-03 16:32] LABS: Glucose,Whole Blood 186 mg/dL (70-110)
--- NOTE | 2024-06-03 17:09 | P.PN ---
Subjective Progress Note Date: 06/03/24 Principal diagnosis: Reason for follow-up is complicated UTI and bacteremia Patient is a 83-year-old male with a past medical history significant for diabetes mellitus hypertension, presenting to the hospital for evaluation of generalized weakness flulike symptoms has been diagnosed with a complicated UTI and also have E. coli bacteremia patient is status post cystoscopy and right ureteral stent placement on 06/02/2024. Today's evaluation that is 06/03/2024, patient has been afebrile, patient is breathing comfortably and is currently on 3 L nasal oxygen, patient denies having any significant cough no chest pain, patient denies nausea vomiting or diarrhea and no abdominal pain. Patient white count 7.5, creatinine 1.06 blood and urine with an E. coli Objective - Vital Signs Vital signs: Vital Signs Temp 97.5 F L 06/03/24 12:03 Pulse 99 06/03/24 12:03 Resp 14 06/03/24 12:03 BP 126/68 06/03/24 12:03 Pulse Ox 96 06/03/24 12:03 FiO2 Intake & Output 06/02/24 06/03/24 06/03/24 18:59 06:59 18:59 Intake Total 200 Output Total 660 700 500 Balance -460 -700 -500 Weight 58.5 kg 58.4 kg Intake: IV 200 Oral 0 Output: Urine 660 700 500 Estimated Blood Loss 0 Other: Voiding Method Indwelling Catheter Indwelling Catheter - Exam GENERAL DESCRIPTION: An elderly male lying in bed in no distress RESPIRATORY SYSTEM: Unlabored breathing , decreased breath sounds at bases HEART: S1 S2 regular rate and rhythm , ABDOMEN: Soft , no tenderness EXTREMITIES: No edema feet - Labs CBC & Chem 7: 06/03/24 05:44 06/03/24 05:44 Labs: Abnormal Lab Results - Last 24 Hours (Table) 06/02/24 06/02/24 06/03/24 Range/Units 16:11 20:44 05:44 RBC 4.03 L (4.30-5.90) m/uL Hgb 12.0 L (13.0-17.5) gm/dL Hct 37.2 L (39.0-53.0) % Plt Count 67 L (150-450) k/uL Lymphocytes # 0.5 L (1.0-4.8) k/uL Sodium (137-145) mmol/L Potassium (3.5-5.1) mmol/L Carbon Dioxide (22-30) mmol/L BUN (9-20) mg/dL Glucose (74-99) mg/dL POC Glucose (mg/dL) 148 H 229 H (70-110) mg/dL Calcium (8.4-10.2) mg/dL 06/03/24 06/03/24 06/03/24 Range/Units 05:44 05:58 11:20 RBC (4.30-5.90) m/uL Hgb (13.0-17.5) gm/dL Hct (39.0-53.0) % Plt Count (150-450) k/uL Lymphocytes # (1.0-4.8) k/uL Sodium 134 L (137-145) mmol/L Potassium 3.3 L (3.5-5.1) mmol/L Carbon Dioxide 20 L (22-30) mmol/L BUN 34 H (9-20) mg/dL Glucose 126 H (74-99) mg/dL POC Glucose (mg/dL) 116 H 177 H (70-110) mg/dL Calcium 7.3 L (8.4-10.2) mg/dL Microbiology - Last 24 Hours (Table) 05/30/24 20:00 Urine Culture - Final Urine,Voided Escherichia coli 05/30/24 18:02 Blood Culture Gram Stain - Final Blood Blood Culture - Final Escherichia coli Molecular ID Assessment and Plan (1) E coli bacteremia Current Visit: Yes Status: Acute Code(s): R78.81 - BACTEREMIA; B96.20 - UNSP ESCHERICHIA COLI THE CAUSE OF DISEASES CLASSD [facility] SNOMED Code(s): 999195886014 (2) UTI (urinary tract infection) Current Visit: Yes Status: Acute Code(s): N39.0 - URINARY TRACT INFECTION, SITE NOT SPECIFIED SNOMED Code(s): 68294297 (3) Sepsis Current Visit: Yes Status: Acute Code(s): A41.9 - SEPSIS, UNSPECIFIED ORGANISM SNOMED Code(s): 80708275 Plan: 1patient presented hospital with sepsis in this patient who did have fever tachycardia elevated white count meeting criteria for SIRS/sepsis source is urinary with a complicated UTI has abated evidence of right-sided hydronephrosis with right ureteral stone 2-patient is status post cystoscopy and ureteral stent placement completed on 06/02/2024 3-patient is slowly clinically improving we will continue patient on Rocephin while inpatient transition to oral Ceftin on discharge Family at the bedside question answered Dictation was produced using [employer] dictation software. please excuse any gra mmatical, word or spelling errors. Time with Patient: Less than 30
[2024-06-03 20:22] LABS: Glucose,Whole Blood 269 mg/dL (70-110)
--- NOTE | 2024-06-03 21:52 | P.PN ---
Subjective Progress Note Date: 06/03/24 Principal diagnosis: UTI with sepsis, obstructing right proximal ureteral calculus Mr. Smith and was found to have right hydronephrosis due to a 7 mm right proximal ureteral calculus. Urine and blood cultures show E. coli, consistent with urosepsis, sensitive to all antibiotics tested and reported upon. He underwent cystoscopy with right ureteral stent insertion on June 02, 2024. Morning labs show that his WBC count remains normal, and his serum creatinine level has normalized as well. He has no specific complaints at this time. Objective - Vital Signs Vital signs: Vital Signs Temp 97.8 F 06/03/24 03:47 Pulse 80 06/03/24 03:47 Resp 18 06/03/24 03:47 BP 121/66 06/03/24 03:47 Pulse Ox 95 06/03/24 03:47 FiO2 Intake & Output 06/02/24 06/03/24 06/03/24 18:59 06:59 18:59 Intake Total 200 Output Total 660 700 Balance -460 -700 Weight 58.5 kg 58.4 kg Intake: IV 200 Oral 0 Output: Urine 660 700 Estimated Blood Loss 0 Other: Voiding Method Indwelling Catheter Indwelling Catheter - Constitutional General appearance: Present: average body habitus, cooperative, no acute distress - Genitourinary Genitourinary Comment(s): Jones catheter intact, draining mildly cloudy urine. - Psychiatric Psychiatric: Present: A&O x's 3 - Labs CBC & Chem 7: 06/03/24 05:44 06/03/24 05:44 Labs: Abnormal Lab Results - Last 24 Hours (Table) 06/02/24 06/02/24 06/02/24 Range/Units 11:16 16:11 20:44 RBC (4.30-5.90) m/uL Hgb (13.0-17.5) gm/dL Hct (39.0-53.0) % Plt Count (150-450) k/uL Lymphocytes # (1.0-4.8) k/uL Sodium (137-145) mmol/L Potassium (3.5-5.1) mmol/L Carbon Dioxide (22-30) mmol/L BUN (9-20) mg/dL Glucose (74-99) mg/dL POC Glucose (mg/dL) 214 H 148 H 229 H (70-110) mg/dL Calcium (8.4-10.2) mg/dL 06/03/24 06/03/24 06/03/24 Range/Units 05:44 05:44 05:58 RBC 4.03 L (4.30-5.90) m/uL Hgb 12.0 L (13.0-17.5) gm/dL Hct 37.2 L (39.0-53.0) % Plt Count 67 L (150-450) k/uL Lymphocytes # 0.5 L (1.0-4.8) k/uL Sodium 134 L (137-145) mmol/L Potassium 3.3 L (3.5-5.1) mmol/L Carbon Dioxide 20 L (22-30) mmol/L BUN 34 H (9-20) mg/dL Glucose 126 H (74-99) mg/dL POC Glucose (mg/dL) 116 H (70-110) mg/dL Calcium 7.3 L (8.4-10.2) mg/dL Microbiology - Last 24 Hours (Table) 05/30/24 18:02 Blood Culture Gram Stain - Final Blood Blood Culture - Final Escherichia coli Molecular ID Assessment and Plan (1) Unspecified hydronephrosis Current Visit: Yes Status: Acute Code(s): N13.30 - UNSPECIFIED HYDRONEPHROSIS SNOMED Code(s): 99403990 Plan: -Continue Rocephin - Remove Jones catheter when no longer medically needed - Arrangements will be made for the patient to undergo outpatient surgery in 2 to 4 weeks (cystoscopy, right ureteral stent removal, right ureteroscopy with laser lithotripsy and possible stone basket removal of ureteral calculus)
--- NOTE | 2024-06-03 22:32 | P.PN ---
Subjective Progress Note Date: 05/31/24 Patient seen he is doing better today he had no particular complaints he is more alert with less short of breath. He denies any fever admits to some difficulty urinating and this last dehydration. Objective - Vital Signs Vital signs: Vital Signs Temp 98.1 F 05/31/24 20:00 Pulse 89 05/31/24 20:00 Resp 17 05/31/24 20:00 BP 109/63 05/31/24 20:00 Pulse Ox 92 L 05/31/24 20:00 FiO2 Intake & Output 05/31/24 05/31/24 06/01/24 06:59 18:59 06:59 Intake Total 0 240 Output Total 1500 880 Balance -1500 -640 Weight 62.7 kg Intake: Oral 0 240 Output: Urine 1500 880 Other: Voiding Method Indwelling Catheter Indwelling Catheter - Exam GENERAL: This is a 83-year-old pleasantly confused. HEENT: Head is atraumatic, normocephalic. Mucous membranes are dry lips are dry and chapped. RESPIRATORY: Diminished breath sounds bilateral with few rhonchi. CARDIOVASCULAR: Regular rate and rhythm. GASTROINTESTINAL: No distention noted. Abdomen soft and round. INTEGUMENTARY: No cyanosis. No jaundice. No rashes noted. No cellulitis noted. EXTREMITIES: 2+ peripheral pulses. No evidence of peripheral edema. No calf tenderness noted. NEUROLOGIC: Cranial nerves II-XII intact. PSYCHIATRIC: Awake, alert, and oriented X 3. Appropriate affect. Intact judgement and insight. - Labs CBC & Chem 7: 06/03/24 05:44 06/03/24 05:44 Labs: Abnormal Lab Results - Last 24 Hours (Table) 05/30/24 05/31/24 05/31/24 Range/Units 21:36 02:40 06:48 WBC 12.1 H (3.8-10.6) k/uL RBC 3.80 L 3.79 L (4.30-5.90) m/uL Hgb 11.4 L 11.3 L (13.0-17.5) gm/dL Hct 35.1 L 35.4 L (39.0-53.0) % Plt Count 94 L 91 L (150-450) k/uL Neutrophils # 8.8 H (1.3-7.7) k/uL Lymphocytes # 0.3 L (1.0-4.8) k/uL Sodium (137-145) mmol/L Carbon Dioxide (22-30) mmol/L BUN (9-20) mg/dL Creatinine (0.66-1.25) mg/dL Glucose (74-99) mg/dL POC Glucose (mg/dL) (70-110) mg/dL Plasma Lactic Acid Emmanuel <0.5 L (0.7-2.0) mmol/L Calcium (8.4-10.2) mg/dL 05/31/24 05/31/24 05/31/24 Range/Units 06:48 06:53 12:17 WBC (3.8-10.6) k/uL RBC (4.30-5.90) m/uL Hgb (13.0-17.5) gm/dL Hct (39.0-53.0) % Plt Count (150-450) k/uL Neutrophils # (1.3-7.7) k/uL Lymphocytes # (1.0-4.8) k/uL Sodium 135 L (137-145) mmol/L Carbon Dioxide 19 L (22-30) mmol/L BUN 50 H (9-20) mg/dL Creatinine 1.69 H (0.66-1.25) mg/dL Glucose 126 H (74-99) mg/dL POC Glucose (mg/dL) 131 H 155 H (70-110) mg/dL Plasma Lactic Acid Emmanuel (0.7-2.0) mmol/L Calcium 7.8 L (8.4-10.2) mg/dL 05/31/24 05/31/24 Range/Units 16:09 20:04 WBC (3.8-10.6) k/uL RBC (4.30-5.90) m/uL Hgb (13.0-17.5) gm/dL Hct (39.0-53.0) % Plt Count (150-450) k/uL Neutrophils # (1.3-7.7) k/uL Lymphocytes # (1.0-4.8) k/uL Sodium (137-145) mmol/L Carbon Dioxide (22-30) mmol/L BUN (9-20) mg/dL Creatinine (0.66-1.25) mg/dL Glucose (74-99) mg/dL POC Glucose (mg/dL) 240 H 140 H (70-110) mg/dL Plasma Lactic Acid Emmanuel (0.7-2.0) mmol/L Calcium (8.4-10.2) mg/dL Microbiology - Last 24 Hours (Table) 05/30/24 18:02 Blood Culture Gram Stain - Preliminary Blood Blood Culture - Preliminary Molecular ID Assessment and Plan (1) Metabolic acidosis Current Visit: Yes Status: Acute Code(s): E87.20 - ACIDOSIS, UNSPECIFIED SNOMED Code(s): 87765693 (2) Acute kidney injury Current Visit: Yes Status: Acute Code(s): N17.9 - ACUTE KIDNEY FAILURE, UNSPECIFIED SNOMED Code(s): 90817503 (3) Fall Current Visit: Yes Status: Acute Code(s): W19.XXXA - UNSPECIFIED FALL, INITIAL ENCOUNTER SNOMED Code(s): 1440713 (4) Lactic acidosis Current Visit: Yes Status: Acute Code(s): E87.20 - ACIDOSIS, UNSPECIFIED SNOMED Code(s): 83522805 (5) NSTEMI (non-ST elevated myocardial infarction) Current Visit: Yes Status: Acute Code(s): I21.4 - NON-ST ELEVATION (NSTEMI) MYOCARDIAL INFARCTION SNOMED Code(s): 44217455 (6) Weakness Current Visit: Yes Status: Acute Code(s): R53.1 - WEAKNESS SNOMED Code(s): 51454013 Plan: Patient will be admitted with cardiology consult already in progress to rule out RI. Also nephrology is to see patient regarding the acute kidney injury and metabolic acidosis. customer services supervisor to consult and participate regarding possible placement. Patient has profound weakness continue to follow patient metabolically until stable.
--- NOTE | 2024-06-03 22:38 | P.PN ---
Subjective Progress Note Date: 06/03/24 05/31/2024 Patient seen he is doing better today he had no particular complaints he is more alert with less short of breath. He denies any fever admits to some difficulty urinating and this last dehydration. 06/03/2024 Patient seen today status post left ureteral stent for urinary tract infection and urosepsis blood culture positive for E. coli currently on antibiotics IV. States that he is feeling better with the stent in the Jones catheter in place he had a large ureteral 7 mm renal calculus. Objective - Vital Signs Vital signs: Vital Signs Temp 98.1 F 05/31/24 20:00 Pulse 89 05/31/24 20:00 Resp 17 05/31/24 20:00 BP 109/63 05/31/24 20:00 Pulse Ox 92 L 05/31/24 20:00 FiO2 Intake & Output 05/31/24 05/31/24 06/01/24 06:59 18:59 06:59 Intake Total 0 240 Output Total 1500 880 Balance -1500 -640 Weight 62.7 kg Intake: Oral 0 240 Output: Urine 1500 880 Other: Voiding Method Indwelling Catheter Indwelling Catheter - Exam GENERAL: This is a 83-year-old pleasantly confused. HEENT: Head is atraumatic, normocephalic. Mucous membranes are dry lips are dry and chapped. RESPIRATORY: Diminished breath sounds bilateral with few rhonchi. CARDIOVASCULAR: Regular rate and rhythm. GASTROINTESTINAL: No distention noted. Abdomen soft and round. INTEGUMENTARY: No cyanosis. No jaundice. No rashes noted. No cellulitis noted. EXTREMITIES: 2+ peripheral pulses. No evidence of peripheral edema. No calf tenderness noted. NEUROLOGIC: Cranial nerves II-XII intact. PSYCHIATRIC: Awake, alert, and oriented X 3. Appropriate affect. Intact judgement and insight. - Labs CBC & Chem 7: 06/03/24 05:44 06/03/24 05:44 Labs: Abnormal Lab Results - Last 24 Hours (Table) 05/30/24 05/31/24 05/31/24 Range/Units 21:36 02:40 06:48 WBC 12.1 H (3.8-10.6) k/uL RBC 3.80 L 3.79 L (4.30-5.90) m/uL Hgb 11.4 L 11.3 L (13.0-17.5) gm/dL Hct 35.1 L 35.4 L (39.0-53.0) % Plt Count 94 L 91 L (150-450) k/uL Neutrophils # 8.8 H (1.3-7.7) k/uL Lymphocytes # 0.3 L (1.0-4.8) k/uL Sodium (137-145) mmol/L Carbon Dioxide (22-30) mmol/L BUN (9-20) mg/dL Creatinine (0.66-1.25) mg/dL Glucose (74-99) mg/dL POC Glucose (mg/dL) (70-110) mg/dL Plasma Lactic Acid Emmanuel <0.5 L (0.7-2.0) mmol/L Calcium (8.4-10.2) mg/dL 05/31/24 05/31/24 05/31/24 Range/Units 06:48 06:53 12:17 WBC (3.8-10.6) k/uL RBC (4.30-5.90) m/uL Hgb (13.0-17.5) gm/dL Hct (39.0-53.0) % Plt Count (150-450) k/uL Neutrophils # (1.3-7.7) k/uL Lymphocytes # (1.0-4.8) k/uL Sodium 135 L (137-145) mmol/L Carbon Dioxide 19 L (22-30) mmol/L BUN 50 H (9-20) mg/dL Creatinine 1.69 H (0.66-1.25) mg/dL Glucose 126 H (74-99) mg/dL POC Glucose (mg/dL) 131 H 155 H (70-110) mg/dL Plasma Lactic Acid Emmanuel (0.7-2.0) mmol/L Calcium 7.8 L (8.4-10.2) mg/dL 05/31/24 05/31/24 Range/Units 16:09 20:04 WBC (3.8-10.6) k/uL RBC (4.30-5.90) m/uL Hgb (13.0-17.5) gm/dL Hct (39.0-53.0) % Plt Count (150-450) k/uL Neutrophils # (1.3-7.7) k/uL Lymphocytes # (1.0-4.8) k/uL Sodium (137-145) mmol/L Carbon Dioxide (22-30) mmol/L BUN (9-20) mg/dL Creatinine (0.66-1.25) mg/dL Glucose (74-99) mg/dL POC Glucose (mg/dL) 240 H 140 H (70-110) mg/dL Plasma Lactic Acid Emmanuel (0.7-2.0) mmol/L Calcium (8.4-10.2) mg/dL Microbiology - Last 24 Hours (Table) 05/30/24 18:02 Blood Culture Gram Stain - Preliminary Blood Blood Culture - Preliminary Molecular ID Assessment and Plan (1) Metabolic acidosis Current Visit: Yes Status: Acute Code(s): E87.20 - ACIDOSIS, UNSPECIFIED SNOMED Code(s): 88277361 (2) Acute kidney injury Current Visit: Yes Status: Acute Code(s): N17.9 - ACUTE KIDNEY FAILURE, UNSPECIFIED SNOMED Code(s): 38244996 (3) Fall Current Visit: Yes Status: Acute Code(s): W19.XXXA - UNSPECIFIED FALL, INITIAL ENCOUNTER SNOMED Code(s): 8822408 (4) Lactic acidosis Current Visit: Yes Status: Acute Code(s): E87.20 - ACIDOSIS, UNSPECIFIED SNOMED Code(s): 49975266 (5) NSTEMI (non-ST elevated myocardial infarction) Current Visit: Yes Status: Acute Code(s): I21.4 - NON-ST ELEVATION (NSTEMI) MYOCARDIAL INFARCTION SNOMED Code(s): 96292501 (6) Weakness Current Visit: Yes Status: Acute Code(s): R53.1 - WEAKNESS SNOMED Code(s): 76292188 Left ureteral stent. Left hydronephrosis Urosepsis with E. coli. Plan: Patient will be admitted with cardiology consult already in progress to rule out DC. Also nephrology is to see patient regarding the acute kidney injury and metabolic acidosis. legal services manager to consult and participate regarding possible placement. Patient has profound weakness continue to follow patient metabolically until stable. Continue IV antibiotics continue left ureteral stent placement. Objective - Vital Signs Vital signs: Vital Signs Temp 98.7 F 06/03/24 20:00 Pulse 68 06/03/24 20:00 Resp 18 06/03/24 20:00 BP 158/80 06/03/24 20:00 Pulse Ox 94 L 06/03/24 20:00 FiO2 Intake & Output 06/03/24 06/03/24 06/04/24 06:59 18:59 06:59 Intake Total 360 300 Output Total 700 1200 325 Balance -700 -840 -25 Weight 58.4 kg Intake: IV 300 0.9 300 Oral 360 Output: Urine 700 1200 325 Other: Voiding Method Indwelling Catheter Indwelling Catheter - Labs CBC & Chem 7: 06/03/24 05:44 06/03/24 05:44 Labs: Abnormal Lab Results - Last 24 Hours (Table) 06/03/24 06/03/24 06/03/24 Range/Units 05:44 05:44 05:58 RBC 4.03 L (4.30-5.90) m/uL Hgb 12.0 L (13.0-17.5) gm/dL Hct 37.2 L (39.0-53.0) % Plt Count 67 L (150-450) k/uL Lymphocytes # 0.5 L (1.0-4.8) k/uL Sodium 134 L (137-145) mmol/L Potassium 3.3 L (3.5-5.1) mmol/L Carbon Dioxide 20 L (22-30) mmol/L BUN 34 H (9-20) mg/dL Glucose 126 H (74-99) mg/dL POC Glucose (mg/dL) 116 H (70-110) mg/dL Calcium 7.3 L (8.4-10.2) mg/dL 06/03/24 06/03/24 06/03/24 Range/Units 11:20 16:31 20:17 RBC (4.30-5.90) m/uL Hgb (13.0-17.5) gm/dL Hct (39.0-53.0) % Plt Count (150-450) k/uL Lymphocytes # (1.0-4.8) k/uL Sodium (137-145) mmol/L Potassium (3.5-5.1) mmol/L Carbon Dioxide (22-30) mmol/L BUN (9-20) mg/dL Glucose (74-99) mg/dL POC Glucose (mg/dL) 177 H 186 H 269 H (70-110) mg/dL Calcium (8.4-10.2) mg/dL Microbiology - Last 24 Hours (Table) 05/30/24 20:00 Urine Culture - Final Urine,Voided Escherichia coli Assessment and Plan (1) Metabolic acidosis Current Visit: Yes Status: Acute Code(s): E87.20 - ACIDOSIS, UNSPECIFIED SNOMED Code(s): 67167319 (2) Acute kidney injury Current Visit: Yes Status: Acute Code(s): N17.9 - ACUTE KIDNEY FAILURE, UNSPECIFIED SNOMED Code(s): 44647836 (3) Fall Current Visit: Yes Status: Acute Code(s): W19.XXXA - UNSPECIFIED FALL, INITIAL ENCOUNTER SNOMED Code(s): 2178666 (4) Lactic acidosis Current Visit: Yes Status: Acute Code(s): E87.20 - ACIDOSIS, UNSPECIFIED SNOMED Code(s): 88731874 (5) NSTEMI (non-ST elevated myocardial infarction) Current Visit: Yes Status: Acute Code(s): I21.4 - NON-ST ELEVATION (NSTEMI) MYOCARDIAL INFARCTION SNOMED Code(s): 66645406 (6) Weakness Current Visit: Yes Status: Acute Code(s): R53.1 - WEAKNESS SNOMED Code(s): 48326843
[2024-06-04 06:15] LABS: Glucose,Whole Blood 76 mg/dL (70-110)
[2024-06-04 11:45] LABS: Glucose,Whole Blood 145 mg/dL (70-110)
--- NOTE | 2024-06-04 15:29 | P.PN ---
Subjective Progress Note Date: 06/04/24 Principal diagnosis: Reason for follow-up is complicated UTI and bacteremia Patient is a 83-year-old male with a past medical history significant for diabetes mellitus hypertension, presenting to the hospital for evaluation of generalized weakness flulike symptoms has been diagnosed with a complicated UTI and also have E. coli bacteremia patient is status post cystoscopy and right ureteral stent placement on 06/02/2024. Today's evaluation that is 06/04/2024, Patient is afebrile this morning patient denies having any chest pain shortness of breath or cough, the patient is currently on 3 L current oxygen, patient denies any abdominal pain no diarrhea no nausea no vomiting. No new lab has been repeated today Objective - Vital Signs Vital signs: Vital Signs Temp 99.1 F 06/04/24 11:31 Pulse 78 06/04/24 11:31 Resp 14 06/04/24 11:31 BP 134/71 06/04/24 11:31 Pulse Ox 96 06/04/24 11:31 FiO2 Intake & Output 06/03/24 06/04/24 06/04/24 18:59 06:59 18:59 Intake Total 360 300 480 Output Total 1200 1375 Balance -840 -1075 480 Weight 54.5 kg Intake: IV 300 0.9 300 Oral 360 480 Output: Urine 1200 1375 Other: Voiding Method Indwelling Catheter Indwelling Catheter Indwelling Catheter - Exam GENERAL DESCRIPTION: An elderly male lying in bed in no distress RESPIRATORY SYSTEM: Unlabored breathing , decreased breath sounds at bases HEART: S1 S2 regular rate and rhythm , ABDOMEN: Soft , no tenderness EXTREMITIES: No edema feet - Labs CBC & Chem 7: 06/03/24 05:44 06/03/24 05:44 Labs: Abnormal Lab Results - Last 24 Hours (Table) 06/03/24 06/03/24 06/04/24 Range/Units 16:31 20:17 11:43 POC Glucose (mg/dL) 186 H 269 H 145 H (70-110) mg/dL Assessment and Plan (1) E coli bacteremia Current Visit: Yes Status: Acute Code(s): R78.81 - BACTEREMIA; B96.20 - UNSP ESCHERICHIA COLI THE CAUSE OF DISEASES [facility] SNOMED Code(s): 151372588817 (2) UTI (urinary tract infection) Current Visit: Yes Status: Acute Code(s): N39.0 - URINARY TRACT INFECTION, SITE NOT SPECIFIED SNOMED Code(s): 37755134 (3) Sepsis Current Visit: Yes Status: Acute Code(s): A41.9 - SEPSIS, UNSPECIFIED ORGANISM SNOMED Code(s): 49757044 Plan: 1patient presented hospital with sepsis in this patient who did have fever tachycardia elevated white count meeting criteria for SIRS/sepsis source is urinary with a complicated UTI has abated evidence of right-sided hydronephrosis with right ureteral stone 2-patient is status post cystoscopy and ureteral stent placement completed on 06/02/2024 3-patient is afebrile and slowly clinically improving we will continue the patient on Rocephin while inpatient finishing therapy with oral Ceftin on discharge Dictation was produced using [employer] dictation software. please excuse any grammatical, word or spelling errors. Time with Patient: Less than 30
[2024-06-04 15:51] VITALS: BMI 17.7
[2024-06-04 16:44] LABS: Glucose,Whole Blood 173 mg/dL (70-110)
--- NOTE | 2024-06-04 17:04 | P.PN ---
Subjective Patient is seen for follow-up for acute kidney injury. Renal function has improved. Serum creatinine down to 1.0 yesterday No significant complaints Maintained on normal saline at 75 cc an hour. Objective - Vital Signs Vital signs: Vital Signs Temp 99.3 F 06/04/24 16:00 Pulse 91 06/04/24 16:00 Resp 14 06/04/24 16:00 BP 166/74 06/04/24 16:00 Pulse Ox 97 06/04/24 16:00 FiO2 Intake & Output 06/03/24 06/04/24 06/04/24 18:59 06:59 18:59 Intake Total 360 300 480 Output Total 1200 1375 Balance -840 -1075 480 Weight 54.5 kg 54.5 kg Intake: IV 300 0.9 300 Oral 360 480 Output: Urine 1200 1375 Other: Voiding Method Indwelling Catheter Indwelling Catheter Indwelling Catheter - Exam Patient is awake, comfortable, no acute distress Examination of the heart S1 and S2 Examination of the lungs bilateral breath sounds are heard Abdomen is soft nontender Examination of lower extremities shows no significant edema TECHNICAL PUBLICATIONS MANAGER exam grossly intact - Labs CBC & Chem 7: 06/03/24 05:44 06/03/24 05:44 Labs: Abnormal Lab Results - Last 24 Hours (Table) 06/03/24 06/04/24 06/04/24 Range/Units 20:17 11:43 16:43 POC Glucose (mg/dL) 269 H 145 H 173 H (70-110) mg/dL Assessment and Plan Assessment: 1. Acute kidney injury secondary to ATN secondary to hypovolemia further worsened with the use of losartan and also low blood pressures. Baseline creatinine near 1. Creatinine 2.37 on admission and is improved to 1.0 2. Metabolic acidosis secondary to acute kidney injury and IV fluids. On oral bicarb. Better. 3. Hypokalemia from poor intake. Magnesium normal. 4. Diabetes mellitus. 5. Right-sided hydronephrosis. Urology following. CT scan showed obstructing right ureteral calculus. Status post cystoscopy and right ureteral stent insertion on 06/02/2024 6. Cardiomyopathy ejection fraction of 40 to 45% with mild to moderate mitral and aortic regurgitation. Plan: Continue with IV fluids Continue to encourage increased oral intake Repeat labs in a.m.
[2024-06-04 20:09] LABS: Glucose,Whole Blood 169 mg/dL (70-110)
--- NOTE | 2024-06-04 22:41 | P.PN ---
Subjective Progress Note Date: 06/04/24 Subjective Progress Note Date: 06/03/24 05/31/2024 Patient seen he is doing better today he had no particular complaints he is more alert with less short of breath. He denies any fever admits to some difficulty urinating and this last dehydration. 06/03/2024 Patient seen today status post left ureteral stent for urinary tract infection and urosepsis blood culture positive for E. coli currently on antibiotics IV. States that he is feeling better with the stent in the Jones catheter in place he had a large ureteral 7 mm renal calculus. 06/04/2024 patient seen today is feeling better he is with his and daughter or granddaughter at bedside full discussion about post discharge care including the need for rehab everybody is in agreement the patient will go to rehab after discharge he denies any fever cough congestion he states he is feeling a little bit better today. Objective - Vital Signs Vital signs: Vital Signs Temp 98.1 F 05/31/24 20:00 Pulse 89 05/31/24 20:00 Resp 17 05/31/24 20:00 BP 109/63 05/31/24 20:00 Pulse Ox 92 L 05/31/24 20:00 FiO2 Intake & Output 05/31/24 05/31/24 06/01/24 06:59 18:59 06:59 Intake Total 0 240 Output Total 1500 880 Balance -1500 -640 Weight 62.7 kg Intake: Oral 0 240 Output: Urine 1500 880 Other: Voiding Method Indwelling Catheter Indwelling Catheter - Exam GENERAL: This is a 83-year-old pleasantly confused. HEENT: Head is atraumatic, normocephalic. Mucous membranes are dry lips are dry and chapped. RESPIRATORY: Diminished breath sounds bilateral with few rhonchi. CARDIOVASCULAR: Regular rate and rhythm. GASTROINTESTINAL: No distention noted. Abdomen soft and round. INTEGUMENTARY: No cyanosis. No jaundice. No rashes noted. No cellulitis noted. EXTREMITIES: 2+ peripheral pulses. No evidence of peripheral edema. No calf tenderness noted. NEUROLOGIC: Cranial nerves II-XII intact. PSYCHIATRIC: Awake, alert, and oriented X 3. Appropriate affect. Intact judgement and insight. - Labs CBC & Chem 7: 06/03/24 05:44 06/03/24 05:44 Labs: Abnormal Lab Results - Last 24 Hours (Table) 05/30/24 05/31/24 05/31/24 Range/Units 21:36 02:40 06:48 WBC 12.1 H (3.8-10.6) k/uL RBC 3.80 L 3.79 L (4.30-5.90) m/uL Hgb 11.4 L 11.3 L (13.0-17.5) gm/dL Hct 35.1 L 35.4 L (39.0-53.0) % Plt Count 94 L 91 L (150-450) k/uL Neutrophils # 8.8 H (1.3-7.7) k/uL Lymphocytes # 0.3 L (1.0-4.8) k/uL Sodium (137-145) mmol/L Carbon Dioxide (22-30) mmol/L BUN (9-20) mg/dL Creatinine (0.66-1.25) mg/dL Glucose (74-99) mg/dL POC Glucose (mg/dL) (70-110) mg/dL Plasma Lactic Acid Emmanuel <0.5 L (0.7-2.0) mmol/L Calcium (8.4-10.2) mg/dL 05/31/24 05/31/24 05/31/24 Range/Units 06:48 06:53 12:17 WBC (3.8-10.6) k/uL RBC (4.30-5.90) m/uL Hgb (13.0-17.5) gm/dL Hct (39.0-53.0) % Plt Count (150-450) k/uL Neutrophils # (1.3-7.7) k/uL Lymphocytes # (1.0-4.8) k/uL Sodium 135 L (137-145) mmol/L Carbon Dioxide 19 L (22-30) mmol/L BUN 50 H (9-20) mg/dL Creatinine 1.69 H (0.66-1.25) mg/dL Glucose 126 H (74-99) mg/dL POC Glucose (mg/dL) 131 H 155 H (70-110) mg/dL Plasma Lactic Acid Emmanuel (0.7-2.0) mmol/L Calcium 7.8 L (8.4-10.2) mg/dL 05/31/24 05/31/24 Range/Units 16:09 20:04 WBC (3.8-10.6) k/uL RBC (4.30-5.90) m/uL Hgb (13.0-17.5) gm/dL Hct (39.0-53.0) % Plt Count (150-450) k/uL Neutrophils # (1.3-7.7) k/uL Lymphocytes # (1.0-4.8) k/uL Sodium (137-145) mmol/L Carbon Dioxide (22-30) mmol/L BUN (9-20) mg/dL Creatinine (0.66-1.25) mg/dL Glucose (74-99) mg/dL POC Glucose (mg/dL) 240 H 140 H (70-110) mg/dL Plasma Lactic Acid Emmanuel (0.7-2.0) mmol/L Calcium (8.4-10.2) mg/dL Microbiology - Last 24 Hours (Table) 05/30/24 18:02 Blood Culture Gram Stain - Preliminary Blood Blood Culture - Preliminary Molecular ID Assessment and Plan (1) Metabolic acidosis Current Visit: Yes Status: Acute Code(s): E87.20 - ACIDOSIS, UNSPECIFIED SNOMED Code(s): 91920885 (2) Acute kidney injury Current Visit: Yes Status: Acute Code(s): N17.9 - ACUTE KIDNEY FAILURE, UNSPECIFIED SNOMED Code(s): 34579271 (3) Fall Current Visit: Yes Status: Acute Code(s): W19.XXXA - UNSPECIFIED FALL, INITIAL ENCOUNTER SNOMED Code(s): 8654172 (4) Lactic acidosis Current Visit: Yes Status: Acute Code(s): E87.20 - ACIDOSIS, UNSPECIFIED SNOMED Code(s): 31075529 (5) NSTEMI (non-ST elevated myocardial infarction) Current Visit: Yes Status: Acute Code(s): I21.4 - NON-ST ELEVATION (NSTEMI) MYOCARDIAL INFARCTION SNOMED Code(s): 40607985 (6) Weakness Current Visit: Yes Status: Acute Code(s): R53.1 - WEAKNESS SNOMED Code(s): 62367474 Left ureteral stent. Left hydronephrosis Urosepsis with E. coli. Plan: Patient will be admitted with cardiology consult already in progress to rule out [place]. Also nephrology is to see patient regarding the acute kidney injury and met abolic acidosis. 911 emergency services dispatcher to consult and participate regarding possible placement. Patient has profound weakness continue to follow patient metabolically until stable. Continue IV antibiotics continue left ureteral stent placement. Objective - Vital Signs Vital signs: Vital Signs Temp 98.9 F 06/04/24 19:53 Pulse 79 06/04/24 19:53 Resp 16 06/04/24 19:53 BP 156/79 06/04/24 19:53 Pulse Ox 95 06/04/24 19:53 FiO2 Intake & Output 06/04/24 06/04/24 06/05/24 06:59 18:59 06:59 Intake Total 300 720 Output Total 1375 1400 500 Balance -0660 -680 -500 Weight 54.5 kg 54.5 kg Intake: IV 300 0.9 300 Oral 720 Output: Urine 1375 1400 500 Other: Voiding Method Indwelling Catheter Indwelling Catheter Indwelling Catheter - Labs CBC & Chem 7: 06/03/24 05:44 06/03/24 05:44 Labs: Abnormal Lab Results - Last 24 Hours (Table) 06/04/24 06/04/24 06/04/24 Range/Units 11:43 16:43 20:05 POC Glucose (mg/dL) 145 H 173 H 169 H (70-110) mg/dL Assessment and Plan (1) Metabolic acidosis Current Visit: Yes Status: Acute Code(s): E87.20 - ACIDOSIS, UNSPECIFIED SNOMED Code(s): 28562023 (2) Acute kidney injury Current Visit: Yes Status: Acute Code(s): N17.9 - ACUTE KIDNEY FAILURE, UNSPECIFIED SNOMED Code(s): 04603418 (3) Fall Current Visit: Yes Status: Acute Code(s): W19.XXXA - UNSPECIFIED FALL, IN ITIAL ENCOUNTER SNOMED Code(s): 7504161 (4) Lactic acidosis Current Visit: Yes Status: Acute Code(s): E87.20 - ACIDOSIS, UNSPECIFIED SNOMED Code(s): 66098624 (5) NSTEMI (non-ST elevated myocardial infarction) Current Visit: Yes Status: Acute Code(s): I21.4 - NON-ST ELEVATION (NSTEMI) MYOCARDIAL INFARCTION SNOMED Code(s): 08837298 (6) Weakness Current Visit: Yes Status: Acute Code(s): R53.1 - WEAKNESS SNOMED Code(s): 52075951
[2024-06-05 06:07] LABS: Glucose,Whole Blood 112 mg/dL (70-110)
[2024-06-05 08:42] VITALS: BP 163/83; PULSE 78; RESP 18; TEMP 98.5
--- NOTE | 2024-06-05 08:44 | P.DS ---
Providers Date of admission: 05/30/24 01:26 Expected date of discharge: 06/05/24 Attending physician: Erick Walls Consults: 05/30/24 01:24 Consult Physician Urgent Consulting Provider: Robert Culp Consult Reason/Comments: kd Do you want consulting provider notified?: Yes 05/30/24 22:33 Consult Physician Stat Consulting Provider: Parviz Mcmillan Consult Reason/Comments: Hypotension Do you want consulting provider notified?: Yes 05/31/24 01:37 Consult Physician Urgent Consulting Provider: Sridhar Avila Consult Reason/Comments: Right hydronephrosis Do you want consulting provider notified?: Yes 06/01/24 09:57 Consult Physician Routine Consulting Provider: Alfonzo Cabrera Consult Reason/Comments: bacteremia Do you want consulting provider notified?: Yes Primary care physician: Erick Walls Hospital Course: Final Diagnoses: (1) Metabolic acidosis Current Visit: Yes Status: Acute Code(s): E87.20 - ACIDOSIS, UNSPECIFIED SNOMED Code(s): 46557968 (2) Acute kidney injury Current Visit: Yes Status: Acute Code(s): N17.9 - ACUTE KIDNEY FAILURE, UNSPECIFIED SNOMED Code(s): 68338727 (3) Fall Current Visit: Yes Status: Acute Code(s): W19.XXXA - UNSPECIFIED FALL, INITIAL ENCOUNTER SNOMED Code(s): 7593268 (4) Lactic acidosis Current Visit: Yes Status: Acute Code(s): E87.20 - ACIDOSIS, UNSPECIFIED SNOMED Code(s): 98611147 (5) NSTEMI (non-ST elevated myocardial infarction) Current Visit: Yes Status: Acute Code(s): I21.4 - NON-ST ELEVATION (NSTEMI) MYOCARDIAL INFARCTION SNOMED Code(s): 27466107 (6) Weakness Current Visit: Yes Status: Acute Code(s): R53.1 - WEAKNESS SNOMED Code(s): 05791209 (7)Left ureteral stent. (8)Left hydronephrosis (9) Sepsis secondary to UTI and bacteremia with E. coli. Hospital Course: 05/31/2024 Patient seen he is doing better today he had no particular complaints he is more alert with less short of breath. He denies any fever admits to some difficulty urinating and this last dehydration. 06/03/2024 Patient seen today status post left ureteral stent for urinary tract infection and urosepsis blood culture positive for E. coli currently on antibiotics IV. States that he is feeling better with the stent in the Jones catheter in place he had a large ureteral 7 mm renal calculus. 06/04/2024 patient seen today is feeling better he is with his and daughter or granddaughter at bedside full discussion about post discharge care including the need for rehab everybody is in agreement the patient will go to rehab after discharge he denies any fever cough congestion he states he is feeling a little bit better today. Patient will be admitted with cardiology consult already in progress to rule out [place]. Also nephrology is to see patient regarding the acute kidney injury and metabolic acidosis. tax services intern to consult and participate regarding possible placement. Patient has profound weakness continue to follow patient metabolically until stable. Continue IV antibiotics continue left ureteral stent placement. Arrangements will be made for the patient to undergo outpatient surgery in 2 to 4 weeks (cystoscopy, right ureteral stent removal, right ureteroscopy with laser lithotripsy and possible stone basket removal of ureteral calculus) Recommend Lexiscan stress test to be done as an outpatient to rule out ischemic heart disease. Significant clinical improvement .patient will be discharged today to [facility] subacute rehab. In a stable condition with guarded prognosis pending final DC recommendations/antibiotics and clearance as per infectious disease and nephrology. The impression and plan of care has been dictated as directed. : I performed a history and examination of this patient, discussed the same with the dictator. I agree with the dictator's note ,documented as a scribe. Any additional findings or plans will be noted. Patient Condition at Discharge: Stable Plan - Discharge Summary Discharge Rx Participant: No New Discharge Prescriptions: New Aspirin 81 mg PO DAILY tab Atorvastatin [Lipitor] 40 mg PO HS tab Sodium Bicarbonate Tab 650 mg PO BID tab Metoprolol Succinate (ER) [Toprol XL] 12.5 mg PO DAILY tab INSULIN LISPRO (HumaLOG) [humaLOG] 0 unit SQ ACHS #10 ml Insulin Glargine (Lantus) [Lantus Vial] 15 unit SQ HS each Timolol 0.5% Ophth Soln [Timoptic 0.5% Ophth Soln] 1 drops BOTH EYES BID ml Acetaminophen Tab [Tylenol] 500 mg PO Q6HR PRN tab PRN Reason: Fever And/ Or Pain Continue Brimonidine Tartrate/Timolol [Brimonidine-Timolol 0.2%-0.5%] 1 drop RIGHT EYE BID Discontinued Metoprolol Tartrate [Lopressor] 25 mg PO DAILY metFORMIN HCL [Glucophage] 500 mg PO TID Losartan [Cozaar] 25 mg PO DAILY Discharge Medication List Brimonidine Tartrate/Timolol [Brimonidine-Timolol 0.2%-0.5%] 1 drop RIGHT EYE BID 05/30/24 [History] Acetaminophen Tab [Tylenol] 500 mg PO Q6HR PRN tab 06/05/24 [Rx] Aspirin 81 mg PO DAILY tab 06/05/24 [Rx] Atorvastatin [Lipitor] 40 mg PO HS tab 06/05/24 [Rx] INSULIN LISPRO (HumaLOG) [humaLOG] 0 unit SQ ACHS #10 ml 06/05/24 [Rx] Insulin Glargine (Lantus) [Lantus Vial] 15 unit SQ HS each 06/05/24 [Rx] Metoprolol Succinate (ER) [Toprol XL] 12.5 mg PO DAILY tab 06/05/24 [Rx] Sodium Bicarbonate Tab 650 mg PO BID tab 06/05/24 [Rx] Timolol 0.5% Ophth Soln [Timoptic 0.5% Ophth Soln] 1 drops BOTH EYES BID ml 06/05/24 [Rx] Follow up Appointment(s)/Referral(s): Sridhar Avila MD [STAFF PHYSICIAN] - 1 Week Erick Walls DO [Primary Care Provider] - 1 Week (after dc from [facility] ) Renard Rivas MD [STAFF PHYSICIAN] - 2 Weeks Activity/Diet/Wound Care/Special Instructions: [facility] subacute rehab. CBC,BMP, magnesium in 3 days Discharge Disposition: TRANSFER TO SNF/ECF
[2024-06-05 09:12] LABS: African American GFR (CKD) 89 (>60 ml/min/1.73 sqM); Anion Gap 7 mmol/L; Blood Urea Nitrogen 23 mg/dL (9-20); Calcium 7.8 mg/dL (8.4-10.2); Carbon Dioxide 23 mmol/L (22-30); Chloride 104 mmol/L (98-107); Glucose 100 mg/dL (74-99); Non-African American GFR(CKD) 77 (>60 ml/min/1.73 sqM); Potassium 3.5 mmol/L (3.5-5.1); Sodium 134 mmol/L (137-145)
--- NOTE | 2024-06-05 11:01 | P.PN ---
Subjective Patient is seen for follow-up for acute kidney injury. Renal function has improved. Serum creatinine down to 0.9 No significant complaints Maintained on normal saline at 75 cc an hour. Objective - Vital Signs Vital signs: Vital Signs Temp 98.5 F 06/05/24 08:00 Pulse 78 06/05/24 08:00 Resp 18 06/05/24 08:00 BP 163/83 06/05/24 08:00 Pulse Ox 97 06/05/24 08:00 FiO2 Intake & Output 06/04/24 06/05/24 06/05/24 18:59 06:59 18:59 Intake Total 720 Output Total 1400 1300 Balance -680 -1300 Weight 54.5 kg 55.5 kg Intake: Oral 720 Output: Urine 1400 1300 Other: Voiding Method Indwelling Catheter Indwelling Catheter Indwelling Catheter - Exam Patient is awake, comfortable, no acute distress Examination of the heart S1 and S2 Examination of the lungs bilateral breath sounds are heard Abdomen is soft nontender Examination of lower extremities shows no significant edema FORENSIC PSYCHOLOGIST exam grossly intact - Labs CBC & Chem 7: 06/03/24 05:44 06/05/24 08:41 Labs: Abnormal Lab Results - Last 24 Hours (Table) 06/04/24 06/04/24 06/04/24 Range/Units 11:43 16:43 20:05 Sodium (137-145) mmol/L BUN (9-20) mg/dL Glucose (74-99) mg/dL POC Glucose (mg/dL) 145 H 173 H 169 H (70-110) mg/dL Calcium (8.4-10.2) mg/dL 06/05/24 06/05/24 Range/Units 06:05 08:41 Sodium 134 L (137-145) mmol/L BUN 23 H (9-20) mg/dL Glucose 100 H (74-99) mg/dL POC Glucose (mg/dL) 112 H (70-110) mg/dL Calcium 7.8 L (8.4-10.2) mg/dL Assessment and Plan Assessment: 1. Acute kidney injury secondary to ATN secondary to hypovolemia further worsened with the use of losartan and also low blood pressures. Baseline creatinine near 1. Creatinine 2.37 on admission and is improved to 0.9 2. Metabolic acidosis secondary to acute kidney injury and IV fluids. On oral bicarb. Better. 3. Hypokalemia from poor intake. Magnesium normal. 4. Diabetes mellitus. 5. Right-sided hydronephrosis. Urology following. CT scan showed obstructing right ureteral calculus. Status post cystoscopy and right ureteral stent insertion on 06/02/2024 6. Cardiomyopathy ejection fraction of 40 to 45% with mild to moderate mitral and aortic regurgitation. Plan: Decrease IV fluids Continue to encourage increased oral intake
[2024-06-05 11:19] LABS: Glucose,Whole Blood 137 mg/dL (70-110)
--- NOTE | 2024-06-05 15:01 | P.PN ---
Subjective Progress Note Date: 06/05/24 Principal diagnosis: Right ureteral calculus, UTI with sepsis Mr. Okeefe was found to have right hydronephrosis due to a 7 mm right proximal ureteral calculus. Urine and blood cultures show E. coli, consistent with urosepsis, sensitive to all antibiotics tested and reported upon. He underwent cystoscopy with right ureteral stent insertion on June 02, 2024. His WBC count remains normal, and his serum creatinine level has normalized. He is feeling better and has no specific complaints at this time. Objective - Vital Signs Vital signs: Vital Signs Temp 98.6 F 06/04/24 23:11 Pulse 87 06/05/24 03:25 Resp 16 06/05/24 03:25 BP 148/67 06/05/24 03:25 Pulse Ox 96 06/05/24 03:25 FiO2 Intake & Output 06/04/24 06/05/24 06/05/24 18:59 06:59 18:59 Intake Total 720 Output Total 1400 1300 Balance -680 -1300 Weight 54.5 kg 55.5 kg Intake: Oral 720 Output: Urine 1400 1300 Other: Voiding Method Indwelling Catheter Indwelling Catheter - Constitutional General appearance: Present: average body habitus, cooperative, no acute distress - Genitourinary Genitourinary Comment(s): Jones catheter intact, draining urine which is essentially clear. - Psychiatric Psychiatric: Present: A&O x's 3 - Labs CBC & Chem 7: 06/03/24 05:44 06/05/24 08:41 Labs: Abnormal Lab Results - Last 24 Hours (Table) 06/04/24 06/04/24 06/04/24 Range/Units 11:43 16:43 20:05 POC Glucose (mg/dL) 145 H 173 H 169 H (70-110) mg/dL 06/05/24 Range/Units 06:05 POC Glucose (mg/dL) 112 H (70-110) mg/dL Assessment and Plan (1) Unspecified hydronephrosis Current Visit: Yes Status: Acute Code(s): N13.30 - UNSPECIFIED HYDRONEPHROS IS SNOMED Code(s): 01819687 Plan: The Jones catheter may be removed when no longer medically needed. The patient is being discharged to [facility] today for rehab. A 10-day course of Ceftin has been prescribed. Arrangements will be made for him to undergo cystoscopy, right ureteral stent removal, ureteroscopic removal of right uretera l calculus in 3 to 4 weeks.
--- NOTE | 2024-06-05 17:45 | P.PN ---
Subjective Progress Note Date: 06/05/24 Principal diagnosis: Reason for follow-up is complicated UTI and bacteremia Patient is a 83-year-old male with a past medical history significant for diabetes mellitus hypertension, presenting to the hospital for evaluation of generalized weakness flulike symptoms has been diagnosed with a complicated UTI and also have E. coli bacteremia patient is status post cystoscopy and right ureteral stent placement on 06/02/2024. Today's evaluation that is 06/05/2024,the patient denies any fever or any chills, patient is breathing comfortably on 3 L nasal oxygen, the patient denies chest pain shortness of breath and no significant cough, patient denies abdominal pain, no nausea vomiting or diarrhea. Patient did have creatinine 0.93 blood and urine with E. coli Objective - Vital Signs Vital signs: Vital Signs Temp 98.5 F 06/05/24 08:00 Pulse 78 06/05/24 08:00 Resp 18 06/05/24 08:00 BP 163/83 06/05/24 08:00 Pulse Ox 97 06/05/24 08:00 FiO2 Intake & Output 06/04/24 06/05/24 06/05/24 18:59 06:59 18:59 Intake Total 720 Output Total 1400 1300 600 Balance -680 -1300 -600 Weight 54.5 kg 55.5 kg Intake: Oral 720 Output: Urine 1400 1300 600 Other: Voiding Method Indwelling Catheter Indwelling Catheter Indwelling Catheter - Exam GENERAL DESCRIPTION: An elderly male lying in bed in no distress RESPIRATORY SYSTEM: Unlabored breathing , decreased breath sounds at bases HEART: S1 S2 regular rate and rhythm , ABDOMEN: Soft , no tenderness EXTREMITIES: No edema feet - Labs CBC & Chem 7: 06/03/24 05:44 06/05/24 08:41 Labs: Abnormal Lab Results - Last 24 Hours (Table) 06/04/24 06/04/24 06/05/24 Range/Units 16:43 20:05 06:05 Sodium (137-145) mmol/L BUN (9-20) mg/dL Glucose (74-99) mg/dL POC Glucose (mg/dL) 173 H 169 H 112 H (70-110) mg/dL Calcium (8.4-10.2) mg/dL 06/05/24 06/05/24 Range/Units 08:41 11:18 Sodium 134 L (137-145) mmol/L BUN 23 H (9-20) mg/dL Glucose 100 H (74-99) mg/dL POC Glucose (mg/dL) 137 H (70-110) mg/dL Calcium 7.8 L (8.4-10.2) mg/dL Assessment and Plan (1) E coli bacteremia Status: Acute Code(s): R78.81 - BACTEREMIA; B96.20 - UNSP ESCHERICHIA COLI THE CAUSE OF DISEASES CLASSD ELSR SNOMED Code(s): 446261994966 (2) UTI (urinary tract infection) Status: Acute Code(s): N39.0 - URINARY TRACT INFECTION, SITE NOT SPECIFIED SNOMED Code(s): 17052269 (3) Sepsis Status: Acute Code(s): A41.9 - SEPSIS, UNSPECIFIED ORGANISM SNOMED Code(s): 04442028 Plan: 1patient presented hospital with sepsis in this patient who did have fever tachycardia elevated white count meeting criteria for SIRS/sepsis source is urinary with a complicated UTI has abated evidence of right-sided hydronephrosis with right ureteral stone 2-patient is status post cystoscopy and ureteral stent placement completed on 06/02/2024 3-patient is afebrile and white count has normalized he will finish therapy with oral Ceftin prescription has been sent to the pharmacy Dictation was produced using [employer] dictation software. please excuse any grammatical, word or spelling errors. Time with Patient: Less than 30
== END 2024-06-05 16:34 | DRG 853 ==
LOC: EC 19:18 → 3SCARD 05-30 01:26
PROVIDERS: ADMIT Family Medicine; ATTEND Family Medicine
PROC: 0T768DZ Dilation of Right Ureter with Intraluminal Device, Via Natural or Artificial Opening Endoscopic (ICD-10-PCS; principal; 2024-05-30)
DX: A41.51 Sepsis due to Escherichia coli [E. coli] (principal); I21.4 Non-ST elevation (NSTEMI) myocardial infarction; N17.0 Acute kidney failure with tubular necrosis; J90 Pleural effusion, not elsewhere classified; E11.65 Type 2 diabetes mellitus with hyperglycemia; I10 Essential (primary) hypertension; D69.6 Thrombocytopenia, unspecified; I08.0 Rheumatic disorders of both mitral and aortic valves; N13.6 Pyonephrosis; I42.9 Cardiomyopathy, unspecified; E87.20 Acidosis, unspecified; N40.0 Benign prostatic hyperplasia without lower urinary tract symptoms; I95.9 Hypotension, unspecified; E86.1 Hypovolemia; E87.6 Hypokalemia; I45.10 Unspecified right bundle-branch block; I25.10 Atherosclerotic heart disease of native coronary artery without angina pectoris; N28.1 Cyst of kidney, acquired; H40.9 Unspecified glaucoma; Z79.84 Long term (current) use of oral hypoglycemic drugs; Z79.899 Other long term (current) drug therapy; Z87.440 Personal history of urinary (tract) infections; Z96.653 Presence of artificial knee joint, bilateral; Z88.2 Allergy status to sulfonamides; W06.XXXA Fall from bed, initial encounter; Y92.009 Unspecified place in unspecified non-institutional (private) residence as the place of occurrence of the external cause
CPT/HCPCS: 36415; 51702; 51798; 70450; 71046; 74176; 76770; 78582; 80048; 80053; 81001; 83605; 83735; 84484; 85025; 85027; 85379; 85610; 85730; 87040; 87077; 87086; 87186; 87636; 93005; 93306; 96361; 96365; 96366; 96368; 99291

== ENCOUNTER 2024-07-04 05:55 | Day surgery (SDC) | payer MEDICARE ==
[2024-07-02 09:49] VITALS: BMI 25.8
--- NOTE | 2024-07-03 21:54 | P.GSHP ---
History of Present Illness H&P Date: 07/03/24 Chief Complaint: Nausea and vomiting The patient is an 84-year-old white male admitted yesterday with a 2 to 3-day history of nausea, vomiting, and diarrhea. He is being treated for acute kidney injury secondary to hypovolemia. Renal ultrasound shows evidence of right hydro nephrosis. I am consulted for this reason. His PSA level was 4.15 last month, and his renal function was normal at that time. Renal ultrasound shows moderate right hydronephrosis as well as a right parapelvic renal cyst. There is no evidence of left hydronephrosis. He is a vague historian. He states that he does not take any BPH medications but does take a supplement. He states that he has been treated for UTIs in the past, but he is unable to provide any specific details regarding this. He denies any prior history of urolithiasis. CT scan was obtained, revealing mild right hydronephrosis due to a 7 mm right proximal ureteral calculus. Urine and blood culture showed E. coli. He underwent right ureteral stent insertion and was treated with antibiotics. - Constitutional Constitutional: Reports chills - Gastrointestinal Gastrointestinal: Reports nausea, Reports vomiting - Genitourinary (Male) Genitourinary: Denies flank pain, Denies hematuria Past Medical History Past Medical History: Diabetes Mellitus, Eye Disorder, Hypertension, Renal Disease Additional Past Medical History / Comment(s): 05/30/24 admitted to [facility] for nausea, vomiting, diarrhea, weakness, dehydration/hypovolemia, UTI/sepsis/right hydronephrosis/right uretral calculus/metabolic acidosis with acute kidney failure, had cardiology consult and Echo in hospital, to have stress test as outpatient. Admitted to [facility] after hospitalization with left heel and tailbone bed sore per Daughter. Glaucoma. History of Any Multi-Drug Resistant Organisms: None Reported Past Surgical History: Joint Replacement Additional Past Surgical History / Comment(s): Bilateral knee replacements, right ureteral stent placement. Past Anesthesia/Blood Transfusion Reactions: No Reported Reaction Smoking Status: Never smoker - Past Family History Mother Family Medical History: No Reported History Medications and Allergies Home Medications Medication Instructions Recorded Confirmed Type Brimonidine Tartrate/Timolol 1 drop RIGHT EYE BID 05/30/24 07/02/24 History [Brimonidine-Timolol 0.2%-0.5%] Acetaminophen Tab [Tylenol] 500 mg PO Q6HR PRN tab 06/05/24 07/02/24 Rx Aspirin 81 mg PO DAILY tab 06/05/24 07/02/24 Rx Atorvastatin [Lipitor] 40 mg PO HS tab 06/05/24 07/02/24 Rx INSULIN LISPRO (HumaLOG) [humaLOG] 0 unit SQ ACHS #10 ml 06/05/24 07/02/24 Rx Insulin Glargine (Lantus) [Lantus 15 unit SQ HS each 06/05/24 07/02/24 Rx Vial] Sodium Bicarbonate Tab 650 mg PO BID tab 06/05/24 07/02/24 Rx Ampicillin Trihydrate 500 mg PO Q6H 07/02/24 07/02/24 History Metoprolol Succinate (ER) [Toprol 12.5 mg PO QAM 07/02/24 07/02/24 History XL] Timolol 0.5% Ophth Soln [Timoptic 1 drops RIGHT EYE BID 07/02/24 07/02/24 History 0.5% Ophth Soln] Allergies Allergy/AdvReac Type Severity Reaction Status Date / Time Sulfa (Sulfonamide Allergy Rash/Hives Verified 07/02/24 09:28 Antibiotics) Surgical - Exam - General well developed, well nourished, no distress - Respiratory normal respiratory effort - Abdomen Abdomen: soft, non tender, no guarding, no rigid, no rebound - Genitourinary normal penis with no external lesions, testicles non-tender - Psychiatric oriented to time, oriented to person, oriented to place, speech is normal, memory intact Results - Imaging CT scan - abdomen: report reviewed, image reviewed Assessment and Plan (1) Calculus of ureter Status: Acute Code(s): N20.1 - CALCULUS OF URETER SNOMED Code(s): 77383907 Plan: Cystoscopy, right ureteral stent removal, right ureteroscopy with Holmium laser lithotripsy and stone basketing. The procedure has been reviewed in detail with the patient. He has been made aware of potential risks, which include anesthesia, bleeding, infection, ureteral injury, and inability to successfully remove the calculus.
[2024-07-04 07:00] VITALS: RESP 16
[2024-07-04] MEDS ORDERED: HYDROmorphone 0.5 MG/0.5 ML SYRINGE IVP PRN (07:00)
[2024-07-04] MEDS: IV FLUID CONTINUATION 1,000 ML IV ONE (07:12)
[2024-07-04 07:16] LABS: Glucose,Whole Blood 103 mg/dL (70-110)
[2024-07-04] MEDS: LACTATED RINGERS 1,000 ML IV SCH (07:18)
--- NOTE | 2024-07-04 07:19 | XR ---
EXAMINATION TYPE: XR KUB DATE OF EXAM: 07/04/2024 6:24 AM COMPARISON: 09/08/2019 CLINICAL INDICATION: Male, 84 years old with history of calculus; PHH, pain, preop for right kidney s tone urologic procedure TECHNIQUE: One radiographic view of the abdomen was obtained. FINDINGS: Moderate to large stool burden throughout the abdomen. No dilated small bowel loops. A righ t ureteral stent is present. Bilateral pelvic phleboliths. Bowel content largely obscures the renal s hadows. IMPRESSION: Right ureteral stent in place. There is moderate to large stool with bowel content largely obscuring the renal shadows. Numerous pelvic phleboliths. [facility], , 07/04/2024 7:17 AM
[2024-07-04] MEDS: ONDANSETRON 4 MG/2 ML VIAL IVP STA (07:20)
[2024-07-04] MEDS: DEXAMETHASONE SOD PHOSPHATE 4 MG/ML 1 ML VIAL IVP STA (07:21)
[2024-07-04] MEDS ORDERED: PHENYLEPHRINE 10 MG/ML VIAL ONE (07:30)
[2024-07-04] MEDS ORDERED: LIDOCAINE 1% INJ 10MG/ML (20 ML MDV) ONE (07:30)
[2024-07-04] MEDS ORDERED: PROPOFOL 10 MG/ML 20 ML VIAL IV ONE (07:30)
[2024-07-04] MEDS ORDERED: SUCCINYLCHOLINE CHLORIDE 200 MG/10 ML VIAL IV ONE (07:30)
[2024-07-04] MEDS ORDERED: fentaNYL (PF) 50 MCG/ML 2 ML AMP ONE (07:30)
[2024-07-04] MEDS: ceFAZolin 2 GM in DEXTROSE 5% IN WATER 50 ML IVPB PRN (07:35)
[2024-07-04 09:06] VITALS: TEMP 97.4
[2024-07-04 09:11] VITALS: PULSE 64
--- NOTE | 2024-07-04 09:12 | FL ---
EXAMINATION TYPE: FL guidance operating room DATE OF EXAM: 07/04/2024 FLUOROSCOPY 9 sec [place] .[id number] dap dose right ureteral calc, stent removal Urologic procedure for right renal stone. One image submitted. [facility], Workstation: [id number], 07/04/2024 9:09 AM
--- NOTE | 2024-07-04 09:27 | P.OP ---
Date of Procedure: 07/04/24 Preoperative Diagnosis: Right renal calculi Postoperative Diagnosis: Same Procedure(s) Performed: Cystoscopy, right ureteral stent removal, right ureteroscopy with Holmium laser lithotripsy and stone basketing Anesthesia: BARBY Surgeon: Sridhar Avila Estimated Blood Loss (ml): 0 IV fluids (ml): 500 Pathology: other (Right renal calculus fragments, sent for chemical analysis) Condition: stable Disposition: PACU Indications for Procedure: The patient is an 84-year-old white male admitted last month with a 2 to 3-day history of nausea, vomiting, and diarrhea. He was treated for acute kidney injury secondary to hypovolemia. His PSA level was 4.15 earlier this year, and his renal function was normal at that time. Renal ultrasound shows moderate right hydronephrosis as well as a right parapelvic renal cyst. There was no evidence of left hydronephrosis. He states that he does not take any BPH medications but does take a supplement. He states that he has been treated for UTIs in the past, but he is unable to provide any specific details regarding this. He denied any prior history of urolithiasis. CT scan was obtained, revealing mild right hydronephrosis due to a 7 mm right proximal ureteral calculus. Urine and blood culture showed E. coli. He underwent right ureteral stent insertion and was treated with antibiotics. He now comes for ureteroscopic removal of the calculus. Operative Findings: 3 right renal calculi. The smaller 2 were removed via stone basketing. The largest was dusted and removed via stone basketing. Description of Procedure: The patient was taken to the operating room and placed in the dorsolithotomy position, with legs supported in Antony stirrups. The external genitalia was prepped and draped sterilely. The 30 lens was used to introduce the 21-Irish Thomas cystoscopic sheath through the urethra and into the bladder under direct vision. The prostatic urethra showed evidence of lateral lobe enlargement and was visually occluded. The bladder was examined in its entirety. The bladder was trabeculated. Grasping forceps were used to grasp the distal end of the right ureteral stent, which was removed along with the cystoscope. A 0.038 inch Glidewire was passed through the stent and up to the right renal pelvis, where it coiled. The stent was removed, and an 11/13-Irish ureteral access catheter was passed over the wire, up to the proximal ureter. The [employer] flexible ureteroscope was then passed through the ureteral access catheter sheath and advanced under direct vision, up to the right renal pelvis. The kidney was noted to be hydronephrotic. The 7 mm calculus was identified within a midpole calyx. The 272 micron Holmium laser probe was passed through the ureteroscope, and lithotripsy was performed utilizing a dusting mode. The calculus then began to fragment, and each fragment was removed using a 1.9 Irish 0 tip nitinol basket. The only residual calculus fragments were the size of the laser fiber tip, too small to remove via stone basketing. The remaining calyces were examined, and 2 small calculi were seen within an adjacent calyx. These were both removed intact using the stone basket. No additional calculi were seen. Pullout ureteroscopy showed no evidence of ureteral trauma, and no calculi within the ureter. The Jones catheter was replaced. The return was clear. The patient tolerated the procedure well and was taken to the recovery room in stable condition. JENNIFER LONG CREEKS Report: Procedure Acuity: Elective Stone Size and Location: 7 mm, right midpole Ureteral Dilation: No Ureteral Access Sheath Used: Yes Stone Sent for Analysis: Yes All Stones/Fragments Were Removed with a Basket: Yes Complications: No Preoperative Antibiotics Given: Yes Stent Placed: No Discharge Medications: Tamsulosin
[2024-07-04 09:42] LABS: Glucose,Whole Blood 90 mg/dL (70-110)
[2024-07-04 09:50] VITALS: BP 118/68
== END 2024-07-04 10:30 ==
LOC: OR 05:55
PROVIDERS: ATTEND Urology
DX: N13.2 Hydronephrosis with renal and ureteral calculous obstruction (principal); E11.9 Type 2 diabetes mellitus without complications; I10 Essential (primary) hypertension; Z79.82 Long term (current) use of aspirin; Z79.4 Long term (current) use of insulin; Z88.2 Allergy status to sulfonamides; Z88.1 Allergy status to other antibiotic agents
CPT/HCPCS: 82365; 74018; 52353; C1769; J0330; J1100; J0690; J2405; J2003; J3010; J2704; J2371